=== PATIENT | male | born 1960 | race Caucasian/White ===

== ENCOUNTER 2018-02-20 09:46 | Outpatient (CLI) | payer BC, SELFPAY ==
[2018-02-20 13:06] LABS: HCT 42.5 % (40.0-50.0); Mean Corp. HGB Concentration 32.9 g/dL (32.0-36.0); Mean Platelet Volume 9.2 fL (8.0-11.0); Platelet Count 275 x1000/uL (130-400); RBC 4.67 m/cumm (4.50-6.00); RBC Distribution Width 13.4 % (11.8-14.1); White Blood Cell Count 9.34 k/cumm (4.4-10.8)
[2018-02-20 13:12] LABS: Cholesterol 139 mg/dL (50-200); HDL Cholesterol 47 mg/dL (40-60); LDL CHOLESTEROL 70 mg/dL (<100); Triglyceride 143 mg/dL (30-150)
[2018-02-20 15:27] LABS: Hemoglobin A1C 5.8 % (4.5-6.2)
== END 2018-02-20 10:06 ==
PROVIDERS: PCP Internal Medicine; Visit Provider Internal Medicine
DX: E11.9 Type 2 diabetes mellitus without complications (principal); K21.9 Gastro-esophageal reflux disease without esophagitis
CPT/HCPCS: 36415; 80061; 83721; 85027; 83036

== ENCOUNTER 2018-05-11 10:09 | Outpatient (CLI) | payer BC, SELFPAY ==
--- NOTE | 2018-05-11 10:00 | DI.RAD_ITS ---
SYMPTOMS/DIAGNOSIS: PAIN OF RT THUMB RIGHT WRIST: Comparison is made with [id number]. There are mild degenerative changes at the base of the first metacarpal. No bony erosions are seen. There are no significant intercarpal degenerative changes. IMPRESSION: Mild degenerative changes at the first carpal metacarpal joint.
== END 2018-05-11 10:29 ==
PROVIDERS: PCP Internal Medicine; Visit Provider Physician Assistant
DX: M79.644 Pain in right finger(s) (principal); M18.11 Unilateral primary osteoarthritis of first carpometacarpal joint, right hand
CPT/HCPCS: 73110

== ENCOUNTER 2018-05-15 06:59 | Day surgery (SDC) | payer BC, SELFPAY ==
[2018-05-15 07:04] VITALS: BP 146/80; PULSE 59; RESP 16; TEMP 36.3; O2SAT 95
[2018-05-15] MEDS: Lidocaine 2% Multi-Dose 50 ML VIAL (07:48)
--- NOTE | 2018-05-15 08:11 | PDOC.DSDIS_ITS ---
Discharge Plan Disposition Patient Disposition: HOME Condition: Good Discharge Details Reason For Visit: R trigger thumb Attending Provider: Sylvain Clancy Primary Care Provider: Eufemia Horan Home Meds and New Rx's Prescriptions: New hydrocodone-acetaminophen 5-325 mg tablet 1 tab PO Q6H PRN (Reason: pain) Qty: 7 RF: 0 Continued cyanocobalamin (vitamin B-12) 1,000 mcg capsule 1,000 mcg PO DAILY RF: 0 aspirin [Aspir-81] 81 MG tablet,delayed release (DR/EC) 81 mg PO DAILY RF: 0 glipizide 2.5 MG tablet extended release 24hr 2 tab PO DAILY Qty: 180 RF: 4 ranitidine HCl 300 MG tablet 300 mg PO BID Qty: 60 RF: 12 esomeprazole magnesium 40 mg capsule,delayed release(DR/EC) 40 mg PO BID Qty: 60 RF: 3 simvastatin 40 mg tablet 40 mg PO HS Qty: 90 RF: 3 sucralfate 1 gram tablet 1 g PO QID Qty: 56 RF: 3 acetaminophen [Tylenol] 325 MG tablet 650 mg PO PRN PRNRF: 0 gemfibrozil 600 MG tablet 600 mg PO DAILY RF: 0 Discharge Instructions Additional Instructions: Bend and straighten R thumb 10 times/hour when awake to decrease stiffness and swelling. Keep dressings dry for 48 hours. Remove dressings in 48 hours. May then shower or bathe and get incision wet. Leave incision uncovered when it is dry and sealed. Take hydrocodone only for pain not relieved by tylenol or ibuprofen. Follow up in 's office in 10-14 days. Referrals: Sylvain Clancy MD [ [facility] STAFF PHYSICIAN] - (f/u in 10-14 days) Activity:: Activity as Tolerated Remove Dressings/Wound Care:: 48 hours Shower/Bathe:: 48 hours Diet:: As Tolerated Discharge Orders Discharge Orders: Discharge Order (Routine); Ordered 05/15/18 Ordered By: Sylvain Clancy DS: Diagnosis Discharge Diagnosis (1) Trigger thumb, right thumb: Status: Acute
--- NOTE | 2018-05-15 15:17 | ROE_ITS ---
DATE OF PROCEDURE: May 15, 2018 PREOPERATIVE DIAGNOSIS: Right trigger thumb (flexor tenosynovitis right thumb) POSTOPERATIVE DIAGNOSIS: Same. PROCEDURE: Tendon sheath incision for right trigger thumb. ANESTHESIA: Local infiltration 1% Xylocaine solution and 0.5% Marcaine with epinephrine solution. SURGEON: Sylvain Clancy M.D. 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 He said several weeks ago hill kathleen began experiencing some intermittent triggering of his right thumb. His thumb got more painful so that about two weeks ago he noticed that he couldn't bend his thumb anymore. He now finds difficulty in performing his work duties due to the localized discomfort on the flexor aspect of his right thum b. He is a right hand dominant individual. Clinical examination shows that he has very limited flex ion of the IP joint due to flexor tenosynovitis of his thumb. His primary area of discomfort is over the proximal bryon of the tendon sheath of the right thumb. I recommended incision of the A-1 pull ey, or proximal bryon, to free up the tendon and allow him to have good active motion of the thumb a gain. The risks and complications of the procedure were explained to the patient in detail preoperat ively. PROCEDURE: The patient was taken to the Operating Room on 05/15/18. He was placed supine on the oper ating table. The right hand was prepped and draped free in the usual sterile fashion. I infiltrated 1% Xylocaine solution over the proximal flexion crease of the thumb, centered over the flexor tendon of the thumb. I then made an incision in line with the proximal flexion crease of the thumb approxi mately 2.5 cm in length. The incision was carried down to the subcu. Blunt-tipped Littler scissors were then used to mobilize the soft tissues, including the digital nerve, away from the flexor sheath of the thumb. Retractors were inserted and then under direct vision I incised the proximal bryon. I completed the incision to the entire length of the proximal bryon. The tendon sheath was really quite thickened. The patient was then asked to actively flex and extend his right thumb. He was now able to flex and extend his right thumb fully without any locking or triggering. The wound margins were infiltrated with 0.5% Marcaine with an epinephrine solution. Hemostasis was obtained with some direct pressure and then the skin edges were approximated with three interrupted #4-0 Nylon sutures. The wound was dressed with Xeroform gauze, sterile gauze 4x4's, and then wrapped with a Rafat bandag e. The patient tolerated the procedure well and was discharged to the Day Surgery Unit in good condi tion. The patient was discharged home with instructions to actively flex and extend his right thumb ten kiarra es an hour while he is awake to prevent swelling and pain. He will keep his dressings dry for 48 bebo rs. After 48 hours he may remove his dressings, shower or bathe and get his incision wet. He can le ave the incision uncovered with its dry and sealed. He'll take Tylenol or ibuprofen for pain. He wa s given a prescription for breakthrough pain of seven tablets of Hydrocodone with APAP 5/325 one ever y six hours as needed. He will follow-up in my office in 10 to 14 days.
== END 2018-05-15 08:35 | disposition home or self-care (01) ==
PROVIDERS: PCP Internal Medicine; Visit Provider Orthopaedic Surgery
PROC: (CPT 26055; principal; 2018-05-15 07:30)
DX: M65.311 Trigger thumb, right thumb (principal)
CPT/HCPCS: 26055

== ENCOUNTER 2018-05-25 12:58 | Outpatient (REF) | payer BC, SELFPAY | END 2018-05-25 13:18 | LOC: LBN 12:58 | PROVIDERS: PCP Internal Medicine; Visit Provider Orthopaedic Surgery | DX: T81.49XA Infection following a procedure, other surgical site, initial encounter (principal); M65.311 Trigger thumb, right thumb | CPT/HCPCS: 87077; 87070; 87186; 87205 ==

== ENCOUNTER 2018-08-16 15:12 | Outpatient (CLI) | payer BC, SELFPAY ==
[2018-08-16 15:45] LABS: Abs Immature Grans 0.02 k/cumm (0.0-0.09); Absolute Basophil Count 0.02 k/cumm (0.0-0.2); Absolute Eosinophil Count 0.01 k/cumm (0.0-0.7); Absolute Lymphocyte Count 1.12 k/cumm (1.2-3.4); Absolute Monocyte Count 0.65 k/cumm (0.11-0.7); Absolute Neutrophil Count 8.95 k/cumm (1.2-6.7); Basophils % 0.2; Eosinophils % 0.1; HCT 43.1 % (40.0-50.0); HGB 14.3 g/dL (13.5-17.5); Immature Grans % 0.2; Lymphocytes % 10.4; Mean Corp. HGB Concentration 33.2 g/dL (32.0-36.0); Mean Corpuscular Hemoglobin 29.2 pg (27.0-33.0); Mean Corpuscular Volume 88.1 fL (80-95); Mean Platelet Volume 8.6 fL (8.0-11.0); Neutrophils % 83.1; Platelet Count 251 x1000/uL (130-400); RBC 4.89 m/cumm (4.50-6.00); RBC Distribution Width 13.4 % (11.8-14.1); White Blood Cell Count 10.77 k/cumm (4.4-10.8)
[2018-08-16 16:42] LABS: ALT 37 U/L (12-78); AST 27 U/L (15-37); Albumin 3.7 g/dL (3.4-5.0); Alkaline Phosphatase 102 U/L (46-116); Anion Gap 12.4 mmol/L (3-11); BUN 9 mg/dL (7-18); Bilirubin, Total 0.8 mg/dL (0.2-1.0); CO2 24.6 mmol/L (21.0-32.0); CREATININE 0.97 mg/dL (0.70-1.30); Calcium 8.4 mg/dL (8.5-10.1); Chloride 100 mmol/L (98-107); Glucose 90 mg/dL (70-100); Potassium 3.8 mmol/L (3.5-5.1); Sodium 137 mmol/L (136-145)
== END 2018-08-16 15:32 ==
PROVIDERS: PCP Internal Medicine; Visit Provider Internal Medicine
DX: R05 Cough (principal); J02.9 Acute pharyngitis, unspecified
CPT/HCPCS: 36415; 80053; 85025; 87070

== ENCOUNTER 2018-08-16 16:06 | Outpatient (CLI) | payer BC, SELFPAY ==
--- NOTE | 2018-08-16 15:11 | DI.RAD_ITS ---
SYMPTOMS/DIAGNOSIS: COUGH, R05 PA AND LATERAL CHEST: A small region of infiltration is noted in the left lower lobe. The remainder of the lung is clear. The heart is not enlarged. The hilar structures, mediastinum and tracheal air column are intact. SUMMARY: Findings consistent with an acute pneumonitis.
== END 2018-08-16 16:26 ==
PROVIDERS: PCP Internal Medicine; Visit Provider Internal Medicine
DX: R05 Cough (principal); J18.9 Pneumonia, unspecified organism
CPT/HCPCS: 71046

== ENCOUNTER 2018-08-22 08:41 | Outpatient (CLI) | payer BC, SELFPAY ==
--- NOTE | 2018-08-21 16:11 | DI.RAD_ITS ---
SYMPTOM/DIAGNOSIS: J18.9, PNEUMONIA NOT RESOLVING PA AND LATERAL CHEST: Comparison is made with 08/16/18. The heart size is normal. A patchy density is again noted at the left lung base, without definite change. No new abnormalities are seen. There is no evidence of effusions. IMPRESSION: No significant change in left lower lobe infiltrate.
== END 2018-08-22 09:01 ==
PROVIDERS: PCP Internal Medicine; Visit Provider Internal Medicine
DX: J18.9 Pneumonia, unspecified organism (principal)
CPT/HCPCS: 71046

== ENCOUNTER 2019-04-03 09:36 | Outpatient (CLI) | payer BC, SELFPAY ==
--- NOTE | 2019-04-03 09:52 | DI.RAD_ITS ---
EXAM: XR HEEL RT OS CALCIS INDICATION: pain. COMPARISON: No exams were available for comparison TECHNIQUE: 2D digital imaging was performed. FINDINGS: There is no acute fracture or dislocation. No suspicious lytic or sclerotic lesions are seen. There is a moderate-sized spur at the plantar surface of the calcaneus. There is an enthesophyte at the A chilles insertion site. Vascular calcifications are present. Mild degenerative changes are seen in the hindfoot. IMPRESSION: Degenerative changes seen in the hindfoot.
== END 2019-04-03 09:56 ==
PROVIDERS: PCP Nurse Practitioner Family; Visit Provider Orthopaedic Surgery
DX: M79.671 Pain in right foot (principal); M77.31 Calcaneal spur, right foot; M19.072 Primary osteoarthritis, left ankle and foot
CPT/HCPCS: 73650

== ENCOUNTER 2019-06-15 10:45 | Outpatient (CLI) | payer BC, SELFPAY ==
[2019-06-15 12:58] LABS: HCT 43.3 % (40.0-50.0); HGB 14.5 g/dL (13.5-17.5); Mean Corp. HGB Concentration 33.5 g/dL (32.0-36.0); Mean Corpuscular Hemoglobin 29.9 pg (27.0-33.0); Mean Corpuscular Volume 89.3 fL (80-95); Mean Platelet Volume 8.9 fL (8.0-11.0); Platelet Count 331 x1000/uL (130-400); RBC 4.85 m/cumm (4.50-6.00); RBC Distribution Width 13.5 % (11.8-14.1); White Blood Cell Count 7.08 k/cumm (4.4-10.8)
[2019-06-15 13:17] LABS: ALT 30 U/L (16-63); AST 17 U/L (15-37); Albumin 3.9 g/dL (3.4-5.0); Alkaline Phosphatase 101 U/L (46-116); Anion Gap 7.8 mmol/L (3-11); BUN 14 mg/dL (7-18); Bilirubin, Total 0.8 mg/dL (0.2-1.0); CO2 29.2 mmol/L (21.0-32.0); CREATININE 0.79 mg/dL (0.70-1.30); Calcium 8.5 mg/dL (8.5-10.1); Calculated LDL 192 mg/dL (<100); Chloride 106 mmol/L (98-107); Cholesterol 273 mg/dL (<200); Glucose 107 mg/dL (74-106); HDL Cholesterol 49 mg/dL (40-60); Potassium 4.1 mmol/L (3.5-5.1); Sodium 143 mmol/L (136-145); Total Protein 6.8 g/dL (6.4-8.2); Triglyceride 164 mg/dL (<150)
[2019-06-15 14:45] LABS: Hemoglobin A1C 6.4 % (3.8-5.6)
== END 2019-06-15 11:05 ==
PROVIDERS: PCP Nurse Practitioner Family; Visit Provider Nurse Practitioner Family
DX: E11.9 Type 2 diabetes mellitus without complications (principal); E78.5 Hyperlipidemia, unspecified
CPT/HCPCS: 36415; 80053; 80061; 85027; 83036

== ENCOUNTER 2019-06-22 02:39 | Outpatient (CLI) | payer BC, SELFPAY ==
--- NOTE | 2019-06-22 06:07 | DI.MRI_ITS ---
EXAM: MR LOWER JOINT RT WO CLINICAL HISTORY: r heel pain ? STRESS FX,achilles tendinitis, m76.60. TECHNIQUE: Multiplanar multisequence MRI was performed. COMPARISON: XR HEEL RT OS CALCIS from 04/03/2019 FINDINGS: A plantar calcaneal spur is seen. There is mild edema at the heel spur. There is no evidence of a s tress fracture. The Achilles tendon appears intact. There is mild thickening of tibialis posterior tendon with some intermediate signal, consistent with tendinosis. Remaining tendons are unremarkable . There is some fluid around the tendon sheath of the flexor digitorum and flexor hallucis tendons w hich is within normal limits. There are degenerative changes seen at the tibial talar and talar cune iform joints. IMPRESSION: Mild tendinosis of the tibialis posterior tendon. Degenerative changes and heel spur. No evidence o f Achilles tendonitis or stress fracture. DATA REPOSITORY:
== END 2019-06-22 02:59 ==
PROVIDERS: PCP Nurse Practitioner Family; Visit Provider Orthopaedic Surgery
DX: M76.821 Posterior tibial tendinitis, right leg (principal); M19.071 Primary osteoarthritis, right ankle and foot; M77.31 Calcaneal spur, right foot; M79.671 Pain in right foot
CPT/HCPCS: 73721

== ENCOUNTER 2019-07-27 02:21 | Outpatient (CLI) | payer BC, SELFPAY ==
[2019-07-27 12:23] LABS: ALT 51 U/L (16-63); AST 26 U/L (15-37); Albumin 3.9 g/dL (3.4-5.0); Alkaline Phosphatase 97 U/L (46-116); Anion Gap 9.2 mmol/L (3-11); BUN 14 mg/dL (7-18); CO2 28.8 mmol/L (21.0-32.0); CREATININE 0.93 mg/dL (0.70-1.30); Calcium 8.7 mg/dL (8.5-10.1); Calculated LDL 96 mg/dL (<100); Chloride 103 mmol/L (98-107); Cholesterol 199 mg/dL (<200); Glucose 115 mg/dL (74-106); HDL Cholesterol 57 mg/dL (40-60); Potassium 3.9 mmol/L (3.5-5.1); Sodium 141 mmol/L (136-145); Total Protein 6.9 g/dL (6.4-8.2); Triglyceride 231 mg/dL (<150)
== END 2019-07-27 02:41 ==
PROVIDERS: PCP Nurse Practitioner Family; Visit Provider Nurse Practitioner Family
DX: I10 Essential (primary) hypertension (principal); E78.5 Hyperlipidemia, unspecified
CPT/HCPCS: 36415; 80053; 80061

== ENCOUNTER 2019-11-12 00:48 | Outpatient (CLI) | payer BC, SELFPAY ==
--- NOTE | 2019-11-12 08:15 | DI.RAD_ITS ---
EXAM: XR KNEE LT 3V AP,LAT,PATRICIO CLINICAL HISTORY: LEFT KNEE PAIN M25.562 PAIN LT KNEE. TECHNIQUE: 2D digital imaging was performed. COMPARISON: CR XR CHEST 2V PA LATERAL from 08/21/2018 FINDINGS: Small osteophytes is seen at the posterior patella. The joint spaces are otherwise well maintained. Bones are normally mineralized and intact. Vascular calcifications are seen in the soft tissues. T he soft tissues are otherwise unremarkable. IMPRESSION: Mild degenerative changes of the left knee. DATA REPOSITORY: RADIATION DOSE DELIVERED:
--- NOTE | 2019-11-12 08:15 | DI.RAD_ITS ---
EXAM: XR HIP LT COMPLETE AP PELVIS CLINICAL HISTORY: LEFT HIP PAIN M25.552 PAIN LT HIP. TECHNIQUE: 2D digital imaging was performed. COMPARISON: No exams were available for comparison FINDINGS: There is mild narrowing of the left hip joint space. The joint is otherwise well maintained. There is a well corticated osseous density adjacent to the superior acetabulum. Bones are normally mineral ized and intact. The sacroiliac joints and symphysis pubis appear unremarkable. The soft tissues ar e unremarkable. IMPRESSION: Mild degenerative changes of the left hip. DATA REPOSITORY: RADIATION DOSE DELIVERED:
== END 2019-11-12 01:08 ==
PROVIDERS: PCP Nurse Practitioner Family; Visit Provider Nurse Practitioner Family
DX: M25.552 Pain in left hip (principal); M16.12 Unilateral primary osteoarthritis, left hip; M25.562 Pain in left knee; M17.12 Unilateral primary osteoarthritis, left knee
CPT/HCPCS: 73562; 73502

== ENCOUNTER 2020-04-18 03:04 | Outpatient (CLI) | payer BC, SELFPAY ==
[2020-04-21 17:19] LABS: COVID-19 RT-PCR Result NEGATIVE (Negative)
== END 2020-04-18 03:24 ==
PROVIDERS: PCP Nurse Practitioner Family; Visit Provider Nurse Practitioner Family
DX: R06.02 Shortness of breath (principal)
CPT/HCPCS: U0003

== ENCOUNTER 2020-06-16 01:06 | Outpatient (CLI) | payer BC, SELFPAY ==
--- NOTE | 2020-06-16 07:30 | DI.RAD_ITS ---
EXAM: XR FOOT RT COMPLETE CLINICAL HISTORY: Pain right 5th toe,M79.674. TECHNIQUE: 2D digital imaging was performed. COMPARISON: No exams were available for comparison FINDINGS: There is a fracture of the midshaft of the proximal phalanx of the 5th toe. This is probably subacut e as there does appear to be some callus formation. Mild displacement. No other fractures and no di astasis of the Lisfranc joint. Mild hallux valgus noted. There is no significant narrowing of the g reat toe metatarsophalangeal joint. Prominent inferior calcaneal spur is noted as is calcification a t the insertional aspect of the Achilles tendon. Calcification is noted in the dorsalis pedis artery . There is no radiographic evidence of osteomyelitis. IMPRESSION: Fracture site at the midshaft of the proximal phalanx of the 5th toe as described above. DATA REPOSITORY: RADIATION DOSE DELIVERED:
== END 2020-06-16 01:07 ==
LOC: DI 01:06
PROVIDERS: PCP Nurse Practitioner Family; Visit Provider Nurse Practitioner Family
DX: S92.511A Displaced fracture of proximal phalanx of right lesser toe(s), initial encounter for closed fracture (principal)
CPT/HCPCS: 73630

== ENCOUNTER 2020-06-19 21:19 | Outpatient (REF) | payer BC, SELFPAY ==
[2020-06-19 21:34] LABS: Hemoglobin A1C 7.3 % (<5.7)
[2020-06-19 21:37] LABS: Anion Gap 9.1 mmol/L (3-11); BUN 12 mg/dL (7-18); CO2 29.9 mmol/L (21.0-32.0); CREATININE 1.2 mg/dL (0.70-1.30); Calcium 9.4 mg/dL (8.5-10.1); Calculated LDL 78 mg/dL (<100); Chloride 102 mmol/L (98-107); Cholesterol 179 mg/dL (<200); Glucose 131 mg/dL (74-106); HDL Cholesterol 54 mg/dL (40-60); Potassium 3.4 mmol/L (3.5-5.1); Sodium 141 mmol/L (136-145); Triglyceride 238 mg/dL (<150)
== END 2020-06-19 21:20 | disposition home or self-care (01) ==
LOC: LBN 21:19
PROVIDERS: PCP Nurse Practitioner Family; Visit Provider Nurse Practitioner Family
DX: E11.9 Type 2 diabetes mellitus without complications (principal)
CPT/HCPCS: 80048; 80061; 83036

== ENCOUNTER 2020-08-25 09:37 | Outpatient (CLI) | payer BC, SELFPAY ==
[2020-08-26 12:48] LABS: COVID-19 RT-PCR UVMMC Result Negative (Negative)
== END 2020-08-25 09:38 | disposition home or self-care (01) ==
PROVIDERS: PCP Nurse Practitioner Family; Visit Provider Nurse Practitioner Family
DX: Z20.822 Contact with and (suspected) exposure to COVID-19 (principal)
CPT/HCPCS: U0003

== ENCOUNTER → 2020-09-24 02:40 | Outpatient (CLI) | payer BC, SELFPAY ==
--- NOTE | 2020-09-24 08:00 | DI.RAD_ITS ---
Exam(s) XR CERVICAL SPINE COMP 4-5V EXAM: XR CERVICAL SPINE COMP 4-5V CLINICAL HISTORY: Neck pain with limited ROM, osteo?,CERVICALGIA,M54.2. TECHNIQUE: 2D digital imaging was performed. COMPARISON: No exams were available for comparison FINDINGS: There is no evidence of fracture or listhesis. There is moderate-advanced disc space narrowing at C3 -4 and C5-6 levels. Other levels exhibit normal height. There are bilateral Luschka joint osteophyt es at C3-4 level. No significant Luschka joint osteophytes at C5-6. C6-7 exhibits normal height. T here are mild degenerative changes in the facet joints. No osseous lesions There is asymmetry in the appearance of 1st ribs. Right 1st rib is short IMPRESSION: Degenerative disc disease as described above. Also Luschka joint osteophytes bilaterally at C3-4 lev el. Only mild degenerative facet joint changes. No listhesis. No osseous lesions. DATA REPOSITORY: RADIATION DOSE DELIVERED:
== END ==
PROVIDERS: PCP Nurse Practitioner Family; Visit Provider Nurse Practitioner Family
DX: M54.2 Cervicalgia (principal); M50.31 Other cervical disc degeneration, high cervical region; M50.322 Other cervical disc degeneration at C5-C6 level; M47.812 Spondylosis without myelopathy or radiculopathy, cervical region
CPT/HCPCS: 72050

== ENCOUNTER 2020-11-28 08:32 | Outpatient (CLI) | payer BC, SELFPAY ==
--- NOTE | 2020-11-28 08:15 | DI.RAD_ITS ---
Exam(s) XR HIP LT COMPLETE AP PELVIS EXAM: XR HIP LT COMPLETE AP PELVIS CLINICAL HISTORY: L leg pain. TECHNIQUE: 2D digital imaging was performed. COMPARISON: CR XR HIP LT COMPLETE AP PELVIS from 11/12/2019 FINDINGS: BONES: No acute fracture is present. No bony destructive lesion is seen. JOINTS: No dislocation present. There are mild degenerative changes of the left hip. SOFT TISSUE: Normal. IMPRESSION: Mild degenerative changes of the left hip. DATA REPOSITORY: RADIATION DOSE DELIVERED:
== END 2020-11-28 08:33 | disposition home or self-care (01) ==
LOC: DIORS 08:32
PROVIDERS: PCP Nurse Practitioner Family; Visit Provider Physician Assistant
DX: M16.12 Unilateral primary osteoarthritis, left hip (principal)
CPT/HCPCS: 73502

== ENCOUNTER → 2021-03-05 02:16 | Outpatient (CLI) | payer BC, SELFPAY ==
--- NOTE | 2021-03-05 06:30 | DI.MRI_ITS ---
Exam(s) MR LOWER JOINT LT WO EXAM: MR LOWER JOINT LT WO CLINICAL HISTORY: left knee pain,M17.12, PRIMARY OA TECHNIQUE: Multiplanar multisequence MRI of the knee was performed. COMPARISON: MR MRI L LOWER JOINT WO CONT from 06/27/2009 CR XR KNEE LT 3V AP,LAT,PATRICIO from 11/12/2019 FINDINGS: EFFUSION: There is a minimal amount of increased joint fluid. There is no large joint effusion. The re is no Rivas cyst in the popliteal fossa. MARROW:There is no evidence of fracture, bone contusion, nor osteochondral defects.. There are no si gnificant osseous lesions. PATELLOFEMORAL COMPARTMENT: The quadriceps tendon is intact. The patellar ligament is intact. There is moderate-marked thinning of the retropatellar cartilage over the medial facet. Only mild th inning over the lateral facet. No osteochondral defects.There is no intraosseous signal to suggest r ecent patellar dislocation. There are no patellar retinacular tears. CRUCIATE LIGAMENTS: The anterior cruciate ligament is intact.The posterior cruciate ligament is intac t. MEDIAL COMPARTMENT/MEDIAL MENISCUS: There is tear of the posterior horn of the medial meniscus. Mild bucket-handle configuration. 8 millimeter distance between the edges. Also abundant intrasubstance degenerative myxoid degenerative changes in the outer third of the posterior horn. There is [place] d cartilage thinning over the main weight-bearing surface directly over the torn meniscal area. No t rue osteochondral defect. No subarticular marrow edema at this level. Posteriorly there is a promin ent septated cystic structure in the midline which exhibits a craniocaudal length of 4.5 cm, up to 2 cm wide, and is seen on both sides of the knee posteriorly. This intra-articular ganglion-type cyst also extends posterior to the lower PCL (which is intact). This may be a degenerative meniscal cysts related to the above described tear. The anterior horn of the medial meniscus appears intact. There are no osteophytes in the medial compartment but there is a degenerative subarticular cyst in t he tibial plateau just below the PCL tibial insertion, this measuring 5 x 5 millimeters MEDIAL COLLATERAL LIGAMENT: Intact LATERAL COMPARTMENT/LATERAL MENISCUS: . There is intrasubstance signal-probable myxoid degeneration signal at the level of the root of the posterior horn. This does not violate the articular surface. The inner aspect of the anterior horn of the lateral meniscus exhibits some tearing.There is mild castro barticular edema in the inner aspect of the lateral femoral condyle this level. Some cartilage thinn ing over this focal area is also noted. No cartilage thinning over the lateral femoral condyle behin d this level. No subarticular edema within the lateral tibial plateau nor evidence of degenerative c yst at this level. ILIOTIBIAL BAND: Intact LATERAL COLLATERAL LIGAMENT COMPLEX: The fibular collateral ligament is intact. The biceps femoris t endon is intact.Popliteus muscle and tendon are intact. IMPRESSION: 1. There are tears as described above in both menisci, involving the posterior horn of the medial men iscus and anterior horn of the lateral meniscus. Myxoid degeneration signal is noted in the posterio r horn of the lateral meniscus at the root level but signal abnormality this level does not violate t he articular surface. 2. Mild cartilage changes in the femoral condyles as described above. No osteochondral defects. No osteophytes. 3. Large intra-articular multi-septated posteriorly located cyst seen both laterally and medially, in cluding posterior to the PCL and extending caudally behind the joint. This is most probably a degene rative meniscal cyst, possibly having a thin neck from the prominent tear in the posterior horn of th e medial meniscus and extending behind the PCL to the opposite-lateral aspect of the knee and extendi ng caudally. 4. There are no cruciate ligament tears nor collateral ligament tears. There is significant thinning of the retropatellar cartilage over the medial facet. Minimal adjacent intraosseous signal in the posterior patella. No osteochondral defect at this level. DATA REPOSITORY:
== END ==
PROVIDERS: PCP Nurse Practitioner Family; Visit Provider Student in an Organized Health Care Education/Training Program
DX: M17.12 Unilateral primary osteoarthritis, left knee (principal); S83.282A Other tear of lateral meniscus, current injury, left knee, initial encounter; S83.242A Other tear of medial meniscus, current injury, left knee, initial encounter; X58.XXXA Exposure to other specified factors, initial encounter; M23.007 Cystic meniscus, unspecified meniscus, left knee
CPT/HCPCS: 73721

== ENCOUNTER 2021-03-31 02:35 | Outpatient (CLI) | payer BC, SELFPAY ==
[2021-03-31 11:05] LABS: Source Nasal/Nares
[2021-03-31 15:08] LABS: COVID-19 PCR Negative (Negative)
== END 2021-03-31 02:36 | disposition home or self-care (01) ==
LOC: LBO 02:36
PROVIDERS: PCP Nurse Practitioner Family; Visit Provider Student in an Organized Health Care Education/Training Program
DX: Z20.822 Contact with and (suspected) exposure to COVID-19 (principal)
CPT/HCPCS: 87635

== ENCOUNTER 2021-04-02 09:37 | Day surgery (SDC) | payer BC, SELFPAY ==
[2021-04-02] VITALS (12 sets, daily range): BP systolic 93–141; BP diastolic 64–94; PULSE 43–70; RESP 7–20; TEMP 36.4–36.9; O2SAT 89–98; BMI 32.2
--- NOTE | 2021-04-02 10:04 | W.ANESPRE ---
General Info Date of Service Date Performed: 04/02/21 Height: 5 ft 5 in Weight: 87.8 kg Body Mass Index (BMI): 32.2 Surgical Procedure: Operation Date: 04/02/21 10:40 Proposed Procedures Side Surgeon p Knee Arthroscopy W/ANY INDICATED MENISCAL, CHONDRAL, AND SYNOVIAL SURGERY Left Felipe Corey MD Meds Allergies and Home Medications Allergies Allergy/AdvReac Type Severity Reaction Status Date / Time No Known Drug Allergies Allergy Verified 04/02/21 09:46 Home Medication Medication Instructions Recorded aspirin [Aspir-81] 81 mg PO DAILY tab-cap 07/04/12 sucralfate 1 gram tablet 1 g PO QID #360 tab 05/09/20 metformin 500 mg tablet 500 mg PO DAILY #90 tab 06/23/20 albuterol sulfate 90 mcg/actuation 1 puff IH QID PRN #18 gm 06/30/20 aerosol inhaler fluticasone propionate 110 1 puff IH BID #12 gm 06/30/20 mcg/actuation HFA aerosol inhaler blood sugar diagnostic #200 ea 07/24/20 blood-glucose meter #1 ea 07/24/20 glipizide 5 mg tablet, extended 5 mg PO DAILY #90 tab 07/24/20 release 24 hr omeprazole 40 mg capsule,delayed 40 mg PO BID #180 cap 07/24/20 release simvastatin 40 mg tablet 40 mg PO HS #90 tab 07/24/20 lancets 30 gauge #200 ea 09/22/20 chlorthalidone 25 mg tablet 25 mg PO DAILY #90 tab 12/05/20 mecobalamin (vitamin B12) 1,000 1,000 mcg SUBLINGUAL DAILY 03/11/21 mcg disintegrating tablet,sublingual Current Visit Medications: Current Medications Generic Name Dose Route Start Last Admin Trade Name Freq PRN Reason Stop Dose Admin Ringer's Solution 1,000 mls @ 100 mls/hr 04/02/21 06:00 IV 05/01/21 23:59 INFUSION KAREN Cefazolin Sodium/Dextrose 2 gm in 50 mls @ 100 mls/hr 04/02/21 06:00 Ancef Duplex IVPB 04/02/21 16:00 PREOP KAREN IV Miscellaneous Supplies 1 each 04/02/21 06:00 Iv Access IV 05/01/21 23:59 DIRECTED KAREN Naproxen 250 - 500 mg 04/02/21 07:27 Naproxen 500 Mg Tab PO BID PRN PRN Oxycodone HCl 5 - 10 mg 04/02/21 07:27 Oxycodone 5 Mg Tab PO Q4H PRN PRN Sodium Chloride 0 ml 04/02/21 06:00 Normal Saline Flush 10 Ml Syr IV 05/01/21 23:59 PRN PRN Sodium Chloride 0 ml 04/02/21 06:00 Normal Saline 10 Ml Vial IJ 05/01/21 23:59 DIRECTED PRN Sterile Water 0 ml 04/02/21 06:00 Water,Injection,Sterile 10 Ml Vial IJ 05/01/21 23:59 DIRECTED PRN PFSH Active Problems Active Problems: Problem Status Onset Code Tear of medial meniscus of left knee, current S83.242A 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 Primary osteoarthritis of left knee M17.12 Type 2 diabetes mellitus E11.9 Essential hypertension I10 Hyperlipidemia Gastroesophageal reflux disease with esophagitis K21.0 Dysphagia R13.10 Mild persistent asthma J45.30 Closed fracture of phalanx of right fifth toe S92.501A Obesity E66.9 Medical History Medical History Diplopia Dysphagia Essential hypertension Gastroesophageal reflux disease with esophagitis Hyperlipidemia Mild persistent asthma Obesity Sigmoid diverticulosis Type 2 diabetes mellitus Surgical History Surgical History History of carpal tunnel surgery of right wrist History of esophagogastroduodenoscopy (EGD) (12/29/16) And in 2016 S/P appendectomy S/P colonoscopy (09/01/12) S/P left knee arthroscopy (09/02/09) With chondroplasty patella and open lateral retinacular release S/P trigger finger release (07/04/17) Of Right middle finger; also had right ring finger done in 2009 Tobacco Smoking/Tobacco Use Status: Former Tobacco Use Tobacco: How many years used: 35 Smokeless tobacco user: other Passive smoking exposure: Yes Quit Status: quit date established Second hand exposure: Yes Alcohol Alcohol Intake: current Alcohol intake frequency: holidays/special occasions only Alcohol type: beer Substance Use Substance use: Never Substance use type: does not use Vital Signs and Lab Results Vital Signs Most Recent Vital Signs in EMR: Most Recent Vital Signs Temp Pulse Resp BP Pulse Ox 36.9 C 70 16 123/81 97 04/02/21 09:49 04/02/21 09:49 04/02/21 09:49 04/02/21 09:49 04/02/21 09:49 Lab Results Blood Type / Crossmatch: No Data to Display Complete Blood Count: No Data to Display Complete Metabolic Panel: No Data to Display Liver Function Panel: No Data to Display Coagulation Panel: No Data to Display Cardiac Panel: No Data to Display Arterial Blood Gas: No Data to Display Venous Blood Gas: No Data to Display Pancreas Panel: No Data to Display Thyroid Panel: No Data to Display Infectious Disease: Coronavirus (COVID-19)(PCR) Negative (Negative) 03/31/21 10:48 03/31/21 Coronavirus 2019 Source Nasal/Nares 03/31/21 10:48 03/31/21 Blood Cultures: No Data to Display Toxicology Panel: No Data to Display Anesthesia Assessment and Plan Anesthesia History Personal History: No History of Anesthesia Complications Family History: No Family History of Anesthesia Complications Exercise Tolerance Exercise Tolerance: Metabolic Equivalents>4 Pertinent Negatives Pertinent Negatives: No Major Cardiovascular Symptoms or Complaints, No Major Pulmonary Symptoms or Complaints, No History of CVA/TIA and Other (No active GERD today but does happen even with meds. Will give Pepcid preop. ) Cardiac & Pulmonary Exam Cardiac Exam: Normal S1/S2 Heart Sounds Pulmonary Exam: Clear Bilateral Breath Sounds Implantable Cardiac Device Does patient have a Pacemaker or an ICD?: No Airway Exam Known Difficult Airway: No Mallampati Class: 2 Mouth Opening: Normal (> 3cm) Thyromental Distance: Greater than 3 cm Neck Range of Motion: Full ROM Neck Circumference: Normal Teeth Condition: Generalized Poor Dentition (Many missing teeth, none loose per patient. ) ASA Classification ASA Score: ASA 2 Emergency Case?: No NPO Status NPO Status: NPO Clears >2 hours, Solids >8 hours Anesthesia Plan Resuscitation Status: Full Code Anesthesia Technique: General Anesthesia Airway Planned: Endotracheal Tube Monitors Used: Standard Monitors
[2021-04-02] MEDS: Lactated Ringers 1,000 ML 100 ML IV (10:16)
[2021-04-02] MEDS: ceFAZolin 2 GM/50 ML BAG IVPB (10:32)
--- NOTE | 2021-04-02 10:57 | W.ANESPOSTOP ---
Postoperative Evaluation Date, Time and Location Date Performed: 04/02/21 Time Performed: 10:57 Patient Location: Day Surgery Unit Vital Signs Most Recent Imported Vital Signs: Most Recent Vital Signs Temp Pulse Resp BP Pulse Ox 36.9 C 70 16 123/81 97 04/02/21 09:49 04/02/21 09:49 04/02/21 09:49 04/02/21 09:49 04/02/21 09:49 Pain Score Most Recent Pain Score: Most Recent Pain Score Pain Level 0 04/02/21 10:56 Assessment Mental Status: Awake (Alert & Oriented to Patient Baseline) Airway and Respiratory Function: Patent airway with normal (patient baseline) respiratory exam Cardiovascular Function: Hemodynamically Stable Hydration Status: Adequately Hydrated Nausea & Vomiting: No Nausea or Vomiting Pain: Pt. Denies Any Pain Peripheral Nerve Block: Regional nerve block not resolved at time of post operative discharge
[2021-04-02] MEDS: EPINEPHrine 30 MG/30 ML VIAL (12:03)
[2021-04-02] MEDS: MORPHine 4 MG/ML SYR (12:03)
--- NOTE | 2021-04-02 12:08 | W.PM.DSUDISC ---
Discharge Plan Disposition Patient Disposition: HOME Condition: Stable Discharge Details Reason For Visit: Left knee surgery Attending Provider: Felipe Corey Primary Care Provider: Zuleika Vergara Meds and New Rx's Prescriptions: New naproxen 250 mg tablet 250 - 500 mg PO BID PRN (Reason: Moderate pain or swelling) Qty: 30 RF: 0 oxycodone 5 mg tablet 5 - 10 mg PO Q4H PRN (Reason: moderate to severe pain) Qty: 18 RF: 0 Continued (DME) lancets [BD Microtainer Lancet] 30 gauge misc See Rx Instructions .ROUTE .MEDSUPPLY Qty: 200 RF: 4 mecobalamin (vitamin B12) 1,000 mcg tablet,disintegrating 1,000 mcg sublingual DAILY RF: 0 glipizide 5 mg tablet extended release 24hr 5 mg PO DAILY Qty: 90 RF: 4 simvastatin 40 mg tablet 40 mg PO HS Qty: 90 RF: 4 omeprazole 40 mg capsule,delayed release(DR/EC) 40 mg PO BID Qty: 180 RF: 4 (DME) blood-glucose meter [OneTouch Ultra2 Meter] Kit See Rx Instructions .ROUTE .MEDSUPPLY Qty: 1 RF: 2 (DME) OneTouch Ultra Blue Test Strip Strip See Rx Instructions .ROUTE .MEDSUPPLY Qty: 200 RF: 4 aspirin [Aspir-81] 81 MG tablet,delayed release (DR/EC) 81 mg PO DAILY RF: 0 sucralfate 1 gram tablet 1 g PO QID Qty: 360 RF: 4 metformin 500 mg tablet 500 mg PO DAILY Qty: 90 RF: 4 albuterol sulfate 90 mcg/actuation HFA aerosol inhaler 1 puff IH QID PRN (Reason: shortness of breath or wheezing) Qty: 18 RF: 4 Flovent HFA 110 mcg/actuation HFA aerosol inhaler 1 puff IH BID Qty: 12 RF: 4 chlorthalidone 25 mg tablet 25 mg PO DAILY Qty: 90 RF: 4 Discharge Instructions Additional Instructions: Surgery: Left knee arthroscopy with partial medial and lateral meniscectomy, synovectomy, and chondroplasty Activity: Weightbearing as tolerated. Advance range of motion as comfort allows. No knee brace or crutches needed as soon as comfortable. Avoid deep knee flexion, pivoting, and squatting for approximately 6-8 weeks. A physical therapy prescription will be sent electronically to start in 2 to 3 weeks. Prescriptions: Resume home aspirin 81 mg daily tomorrow Naproxen 250 mg take 1-2 every 12 hours with a meal as needed for moderate pain Oxycodone 5 mg take 1-2 every 4-6 hours as needed for severe pain You may use [id number] Tylenol (acetaminophen) as needed for mild pain. These pain medications may be taken all at once or in different combinations as needed. Also, recommend Colace (docusate) as a stool softener as surgery and pain medicine cause constipation. Dressings: Leave dressing in place for 3 days. May then remove and leave open to air or cover incisions with Band-Aids. May shower after 5 days. Follow-up: 10-[address] Corey Let us know right away if you develop any redness, drainage, fevers, chest pain, or trouble breathing. Do not drink alcohol or drive for at least 24 hours after anesthesia. Please call the office during business hours with any questions or concerns. Referrals: Felipe Corey MD [ [facility] STAFF PHYSICIAN] - Discharge Orders Discharge Orders: Discharge Order (Routine); Ordered 04/02/21 Ordered By: Felipe Corey DS: Diagnosis Discharge Diagnosis (1) Tear of medial meniscus of left knee, current: Status: Acute (2) Chondromalacia, left knee: Status: Acute (3) Synovitis of left knee: Status: Acute (4) Lateral meniscal tear: Status: Acute
--- NOTE | 2021-04-02 12:17 | ROE_ITS ---
Date of service: 04/02/21 Time of Service: 11:00 Operative Note Operative Note DATE OF PROCEDURE: 04/02/21 PRE-OP DIAGNOSIS: Left knee 1. Medial meniscus tear 2. Chondromalacia POST-OP DIAGNOSIS: other Left knee 1. Medial meniscus tear 2. Chondromalacia 3. Lateral meniscus tear 4. Synovitis PROCEDURE: Left knee 1. Partial medial & lateral meniscectomy, CPT #46998 2. Greater than 2 compartment synovectomy, CPT #60966: Patellofemoral, intercondylar, anteromedial, anterolateral 3. Chondroplasty, CPT #15982: Trochlea and medial femoral condyle SURGEON: Felipe Corey DIRECTOR DATA ARCHITECTURE: None None ANESTHESIA TYPE: Local By Surgeon and General LMA/ETT Refer to Anesthesia Record ESTIMATED BLOOD LOSS: 5 PATHOLOGY: none sent TOURNIQUET TIME: 0 COMPLICATIONS: None Patient was transported to: PACU Patient's condition: stable Indications: Please see complete medical record for details. Findings: Exam under anesthesia: Full range of motion, no instability Arthroscopic findings: Extensive synovitis especially peripatellar and inferior patellar as well as the intercondylar, anteromedial, and anterolateral areas. Likely from prior arthroscopy and potential scarring from lateral release. Near full-thickness about 2 x 2 centimeter central trochlear cartilage lesion with loose rough cartilage edges. No significant kissing underside patellar lesion. Intact lateral femoral condyle. Medial femoral condyle with moderately diffuse grade 2?3 chondromalacia in the weightbearing portion. Grade 1?2 changes tibia. Intact ACL PCL. Lateral meniscus with moderate fraying about the root and into the posterior horn without any disruption of the root. Medial meniscus with significant near full thickness radial posterior horn tear with complex extension into the root about 50% involvement in a horizontal fashion and in a vertical and horizontal fashion through the posterior horn into the medial meniscal body. Root remnant stable. Procedure Description: In the operating room, genral anesthesia was induced. The patient was positioned supine on the operating room table. All bony prominences were well-padded. Preoperative antibiotics were administered. The knee was prepped and draped in the usual sterile fashion. The correct patient, procedure, and side of the procedure were all verified prior to incision. Exam under anesthesia was performed. 10 cc of 0.5% bupivacaine containing epinephrine was infiltrated about the planned anteromedial and anterolateral knee arthroscopy portals. The portals were established and a complete diagnostic arthroscopy was performed with relevant findings detailed above. The mechanical shaver was used to remove pathologic synovium from the anteromedial, anterolateral, intercondylar, and patellofemoral areas including extensive scarring about the patella and posterior fat pad and patellar tendon limiting patella mobility. The central trochlea was brought into view with the knee held in moderate flexion and unstable cartilage flaps about the rim of a cartilage lesion was gently trimmed to a stable margin removing only as little cartilage as necessary to prevent propagation and loose body. The medial femoral condyle had moderately diffuse thinning and fraying which was also smooth only as much as necessary to a stable contour. Using a combination of hand instruments including meniscal biters and a power shaver and working through the anteromedial and anterolateral compartments the medial meniscus tear was debrided of all torn tissue to a stable margin. Care was taken to preserve as much meniscus tissue was possible although there was significant extension about the radial tear with above described complex propagation towards the root and towards the body. The meniscal remnant was probed and found to have a stable margin, stable partial root, and no other tears. In the [id number] position the lateral meniscus had moderate fraying about the root and mild fraying into the posterior horn. The root was stable and although there was partial injury it was stable. The mechanical shaver was all that was necessary to debride this frayed injured lateral meniscal tissue smoothing and contouring into the posterior horn. Under direct arthroscopic visualization an 18-gauge needle was passed into the knee from superolateral into the suprapatellar pouch. The knee was copiously irrigated with arthroscopic fluid until there was a clear effluent before being drained of all fluid. The anteromedial and anterolateral portals were closed in 3-0 Monocryl in a buried interrupted fashion. 20 cc of 0.5% bupivacaine with epinephrine containing 4 mg of morphine was infiltrated into the knee through the previously placed needle. Mastisol, Steri-Strips, and 4 x 4 gauze were applied over the incisions followed by sterile soft roll. The knee was then wrapped gently with an JESSICA comressive bandage. The patient awoke from anesthesia without complication and was transferred to the recovery room in a stable condition. Arthroscopic photos will be in separate files due to issues with arthroscopy tower functioning during the case requiring use of a backup mobile tower.
[2021-04-02] MEDS: fentaNYL 100 MCG/2 ML VIAL IVP (12:22)
[2021-04-02] MEDS: ACETAMINOPHEN 1,000 MG/100 ML BTL 400 MG IVPB (12:49)
[2021-04-02] MEDS: LORazepam 2 MG/ML VIAL 0.5 MG IVP (13:11)
[2021-04-02] MEDS: oxyCODONE 5 MG TAB PO (14:08)
--- NOTE | 2021-04-02 15:38 | W.ANESPOSTOP ---
Postoperative Evaluation Date, Time and Location Date Performed: 04/02/21 Time Performed: 15:39 Patient Location: Day Surgery Unit Vital Signs Most Recent Imported Vital Signs: Most Recent Vital Signs Temp Pulse Resp BP Pulse Ox 36.5 C 50 L 14 134/77 98 04/02/21 14:29 04/02/21 14:29 04/02/21 14:29 04/02/21 14:29 04/02/21 14:29 Pain Score Most Recent Pain Score: Most Recent Pain Score Pain Level 5 04/02/21 14:29 Assessment Mental Status: Awake (Alert & Oriented to Patient Baseline) Airway and Respiratory Function: Patent airway with normal (patient baseline) respiratory exam Cardiovascular Function: Hemodynamically Stable Hydration Status: Adequately Hydrated Nausea & Vomiting: No Nausea or Vomiting Pain: Pain is tolerable per patient Peripheral Nerve Block: Patient did not receive a nerve block Postoperative Comments:: Patient seen earlier today prior to discharge at around 1430
== END 2021-04-02 15:15 | disposition home or self-care (01) ==
LOC: SUR 09:37
PROVIDERS: PCP Nurse Practitioner Family; Visit Provider Student in an Organized Health Care Education/Training Program
PROC: (CPT 29870; principal; 2021-04-02 10:30)
DX: M23.232 Derangement of other medial meniscus due to old tear or injury, left knee (principal); M94.262 Chondromalacia, left knee; M23.262 Derangement of other lateral meniscus due to old tear or injury, left knee; M65.862 Other synovitis and tenosynovitis, left lower leg
CPT/HCPCS: 29876; 29880; J0131; J0690; J1885; J2001; J2060; J2270; J2405; J2704; J3010

== ENCOUNTER → 2021-08-11 02:25 | Outpatient (CLI) | payer BC, SELFPAY ==
--- NOTE | 2021-08-11 07:00 | DI.RAD_ITS ---
Exam(s) XR THUMB RT EXAM: XR THUMB RT CLINICAL HISTORY: uneplained severe pain at IP joint, PAIN RT THUMB, NO TRAUMA, M79.644. TECHNIQUE: 2D digital imaging was performed of the right finger. Three views were obtained. PA/AP, oblique, and lateral views were obtained. COMPARISON: No exams were available for comparison FINDINGS: BONES: No acute fracture is present. No bony destructive lesion is seen. JOINTS: No dislocation present. SOFT TISSUE: Normal. IMPRESSION: No evidence of acute fracture, dislocation, or subluxation. DATA REPOSITORY: RADIATION DOSE DELIVERED:
== END ==
PROVIDERS: PCP Nurse Practitioner Family; Visit Provider Family Medicine
DX: M79.644 Pain in right finger(s) (principal)
CPT/HCPCS: 73140

== ENCOUNTER 2021-08-19 03:06 | Outpatient (CLI) | payer BC, SELFPAY ==
[2021-08-19 08:29] LABS: Abs Immature Grans 0.02 10^3/uL (0.0-0.06); Absolute Basophil Count 0.05 10^3/uL (0.0-0.2); Absolute Eosinophil Count 0.31 10^3/uL (0.0-0.7); Absolute Lymphocyte Count 2.31 10^3/uL (1.2-3.4); Absolute Monocyte Count 0.49 10^3/uL (0.1-0.8); Absolute Neutrophil Count 2.62 10^3/uL (1.2-6.7); Basophils % 0.9; Eosinophils % 5.3; HCT 44.6 % (40.0-50.0); HGB 14.9 g/dL (13.5-17.5); Immature Grans % 0.3; Lymphocytes % 39.8; MCH 29.2 pg (27.0-33.0); MCHC 33.4 % (32.0-36.0); MCV 87.3 fL (80-95); MPV 8.5 fL (8.0-11.0); Monocytes % 8.4; Neutrophils % 45.3; Platelet Count 307 10^3/uL (130-400); RBC 5.11 10^6/uL (4.36-5.78); RDW 13.4 % (11.8-14.1); RDW-SD 43.3 fL
[2021-08-19 08:35] LABS: ESR 6 mm/hr (0-20)
[2021-08-19 08:49] LABS: Hemoglobin A1C 6.7 % (<5.7)
[2021-08-19 09:15] LABS: COMMENT (LAB VIEW ONLY) 133.68 mg/dL; Microalb ug/mg Crea 6.4 ug/mg Cr
[2021-08-19 09:33] LABS: ALT 36 U/L (16-63); AST 23 U/L (15-37); Albumin 4.1 g/dL (3.4-5.0); Alkaline Phosphatase 97 U/L (46-116); Anion Gap 8.1 mmol/L (3-11); BUN 11 mg/dL (7-18); Bilirubin, Total 0.9 mg/dL (0.2-1.0); CO2 30.9 mmol/L (21.0-32.0); Chloride 102 mmol/L (98-107); Glucose 155 mg/dL (74-106); Potassium 3.4 mmol/L (3.5-5.1); Sodium 141 mmol/L (136-145); Total Protein 7.1 g/dL (6.4-8.2)
[2021-08-19 09:35] LABS: Calculated LDL 111 mg/dL (<100); Cholesterol 212 mg/dL (<200); HDL Cholesterol 62 mg/dL (40-60); Triglyceride 197 mg/dL (<150)
[2021-08-19 09:44] LABS: C-Reactive Protein 0.13 mg/dL (0.0-0.3); Uric Acid 5.1 mg/dL (3.5-7.2)
[2021-08-19 19:01] LABS: PSA, Screening 1.2 ng/mL (<=4.5)
[2021-08-20 11:03] LABS: Hepatitis C Ab w Rflx HCV PCR Negative (Negative)
[2021-08-20 11:06] LABS: HIV-1/2 Ag & Ab Screen Negative (Negative)
== END 2021-08-19 03:07 | disposition home or self-care (01) ==
LOC: LBO 03:06
PROVIDERS: Family Medicine; PCP Nurse Practitioner Family; Visit Provider Nurse Practitioner Family
DX: E11.9 Type 2 diabetes mellitus without complications (principal); I10 Essential (primary) hypertension; M19.041 Primary osteoarthritis, right hand; Z11.59 Encounter for screening for other viral diseases; Z12.5 Encounter for screening for malignant neoplasm of prostate; Z11.4 Encounter for screening for human immunodeficiency virus [HIV]
CPT/HCPCS: 36415; 80048; 80053; 80061; 84153; 85652; 86803; 87389; 82043; 82570; 83036; 84550; 85025; 86140

== ENCOUNTER 2021-12-16 02:40 | Outpatient (CLI) | payer BC, SELFPAY ==
[2021-12-16 12:44] LABS: Anion Gap 9.5 mmol/L (3-11); BUN 10 mg/dL (7-18); CO2 30.5 mmol/L (21.0-32.0); Calcium 9.1 mg/dL (8.5-10.1); Chloride 100 mmol/L (98-107); Glucose 139 mg/dL (74-106); Potassium 3.3 mmol/L (3.5-5.1); Sodium 140 mmol/L (136-145)
== END 2021-12-16 02:41 | disposition home or self-care (01) ==
LOC: LOS 02:40
PROVIDERS: PCP Nurse Practitioner Family; Visit Provider Nurse Practitioner Family
DX: E11.9 Type 2 diabetes mellitus without complications (principal)
CPT/HCPCS: 36415; 80048

== ENCOUNTER 2022-06-29 02:25 | Outpatient (CLI) | payer BC, SELFPAY ==
[2022-06-29 12:40] LABS: Anion Gap 6.5 mmol/L (3-11); BUN 13 mg/dL (7-18); CO2 31.5 mmol/L (21.0-32.0); CREATININE 1.1 mg/dL (0.70-1.30); Calcium 9.3 mg/dL (8.5-10.1); Chloride 100 mmol/L (98-107); Glucose 138 mg/dL (74-106); Potassium 3.8 mmol/L (3.5-5.1); Sodium 138 mmol/L (136-145)
== END 2022-06-29 02:26 | disposition home or self-care (01) ==
LOC: LOS 02:25
PROVIDERS: PCP Nurse Practitioner Family; Visit Provider Nurse Practitioner Family
DX: E11.40 Type 2 diabetes mellitus with diabetic neuropathy, unspecified (principal)
CPT/HCPCS: 36415; 80048

== ENCOUNTER 2022-08-17 18:38 | Outpatient (REF) | payer BC, SELFPAY ==
[2022-08-17 13:32] LABS: Anion Gap 7.9 mmol/L (3-11); BUN 14 mg/dL (7-18); CO2 30.1 mmol/L (21.0-32.0); CREATININE 1.1 mg/dL (0.70-1.30); Calcium 9.4 mg/dL (8.5-10.1); Chloride 103 mmol/L (98-107); Glucose 134 mg/dL (74-106); Potassium 3.8 mmol/L (3.5-5.1); Sodium 141 mmol/L (136-145); Uric Acid 5.2 mg/dL (3.5-7.2)
== END 2022-08-17 18:39 | disposition home or self-care (01) ==
LOC: LBN 18:38
PROVIDERS: PCP Nurse Practitioner Family; Visit Provider Nurse Practitioner Family
DX: M79.671 Pain in right foot (principal); E11.40 Type 2 diabetes mellitus with diabetic neuropathy, unspecified
CPT/HCPCS: 80048; 84550

== ENCOUNTER 2022-08-20 00:53 | Outpatient (CLI) | payer BC, SELFPAY ==
--- NOTE | 2022-08-20 07:15 | DI.RAD_ITS ---
Exam(s) XR FOOT RT COMPLETE EXAM: XR FOOT RT COMPLETE CLINICAL HISTORY: atraumatic pain right metatarsal,RT FOOT PAIN, M79.671. TECHNIQUE: 2D digital imaging was performed. COMPARISON: No exams were available for comparison FINDINGS: 3 views No evidence of fracture or diastasis of the Lisfranc joint. Mild hallux valgus. No significant narr owing of the great toe MTP joint. Moderate size inferior calcaneal spur is noted as is calcification at the posterior calcaneus insertion site of the Achilles tendon. Vascular calcifications noted in the dorsalis pedis vessel. There is no radiopaque foreign body. Th ere is no radiographic evidence of osteomyelitis. IMPRESSION: As above. DATA REPOSITORY: RADIATION DOSE DELIVERED:
== END 2022-08-20 01:13 ==
LOC: DI 00:53
PROVIDERS: PCP Nurse Practitioner Family; Visit Provider Nurse Practitioner Family
DX: M79.671 Pain in right foot (principal)
CPT/HCPCS: 73630

== ENCOUNTER 2022-08-28 21:49 | Emergency (ER) | payer BC, SELFPAY ==
[2022-08-28 21:52] VITALS: BP 156/93; PULSE 62; RESP 18; TEMP 37.1; O2SAT 94
--- NOTE | 2022-08-28 22:00 | DI.RAD_ITS ---
Exam(s) XR SHOULDER LT COMPLETE 2+V XR HUMERUS LT EXAM: XR SHOULDER LT COMPLETE 2+V and XR humerus LT CLINICAL HISTORY: Fall. TECHNIQUE: 2D digital imaging was performed of the left shoulder. Seven images were obtained. AP, Grashey, and Y views were obtained. COMPARISON: CR,XR XR HUMERUS LT from 08/28/2022 FINDINGS: BONES: No acute fracture is present. No bony destructive lesion is seen. JOINTS: No dislocation present. Well corticated osseous densities are seen adjacent to the lateral ep icondyle of the humerus which may reflect sequelae of old trauma. Degenerative changes are seen at t he acromioclavicular joint. SOFT TISSUE: Normal. IMPRESSION: No acute fracture or dislocation seen in the left shoulder or humerus. DATA REPOSITORY: RADIATION DOSE DELIVERED:
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
--- NOTE | 2022-08-28 22:55 | DI.VRAD_ITS ---
PROCEDURE INFORMATION: Exam: XR Left Humerus Exam date and time: 08/28/2022 10:18 PM Age: 62 years old Clinical indication: Injury or trauma; Fall TECHNIQUE: Imaging protocol: Radiologic exam of the left humerus. Views: 2 or more views. COMPARISON: CR XR SHOULDER LT COMPLETE 2+V 08/28/2022 10:16 PM FINDINGS: Bones/joints: Frontal and oblique lateral views of the left humerus reveal no acute fracture or dislocation. There are ossific fragments along the lateral epicondyle of the humerus, possibly degenerative calcifications or a sequela of old trauma. Soft tissues: No gross soft tissue abnormality is seen in the left upper arm. IMPRESSION: No acute humeral fracture seen. Dictated and Authenticated by: Lamont Block MD. Ordering:ORVILLE Molina MD
--- NOTE | 2022-08-28 22:57 | DI.VRAD_ITS ---
PROCEDURE INFORMATION: Exam: XR Left Shoulder Exam date and time: 08/28/2022 10:16 PM Age: 62 years old Clinical indication: Injury or trauma; Fall TECHNIQUE: Imaging protocol: Radiologic exam of the left shoulder. Views: 2 or more views. COMPARISON: CR XR CERVICAL SPINE COMP 4-5V 09/24/2020 10:10 AM FINDINGS: Bones/joints: Four views of the left shoulder reveal no acute fracture or dislocation. Soft tissues: No gross focal soft tissue abnormality is demonstrated. IMPRESSION: No acute fracture or dislocation seen at the left shoulder. Dictated and Authenticated by: Lamont Block MD. Ordering:ORVILLE Molina MD
--- NOTE | 2022-08-28 23:17 | NUR.NOTE ---
Nursing Note:Pt out of ER with left arm in sling.
== END 2022-08-28 23:16 | disposition home or self-care (01) ==
PROVIDERS: Emergency Provider Registered Nurse Emergency; PCP Nurse Practitioner Family
DX: S49.92XA Unspecified injury of left shoulder and upper arm, initial encounter (principal); W05.1XXA Fall from non-moving nonmotorized scooter, initial encounter
CPT/HCPCS: 99283; 73030; 73060; 99284

== ENCOUNTER 2022-09-20 01:24 | Outpatient (CLI) | payer BC, SELFPAY ==
--- NOTE | 2022-09-20 07:00 | DI.MRI_ITS ---
Exam(s) MR UPPER JOINT LT WO EXAM: MR UPPER JOINT LT WO CLINICAL HISTORY: Left shoulder injury, limited ROM, ? rotator cuff tear,S49.92xa. TECHNIQUE: Multiplanar multisequence MRI was performed. COMPARISON: CR,XR XR SHOULDER LT COMPLETE 2+V from 08/28/2022 FINDINGS: BONES: There is no fracture or contusion pattern. JOINTS: Mild degenerative changes are seen at the acromioclavicular joint. The glenohumeral joint is normal. TENDONS: Supraspinatus: There is a full-thickness tear of the supraspinatus tendon with a gap of approximately 1.5 cm. Infraspinatus: There is tendinosis of the infraspinatus tendon. Subscapularis: There is tendinosis of the subscapularis tendon. Hyperintense signal is seen within t he substance of the subscapularis tendon consistent with a intrasubstance partial tear. Teres Minor: Unremarkable. Biceps and Jefferson: There is tendinosis of the biceps tendon. MUSCLES: There is mild atrophy of the supraspinatus muscle. The remaining rotator cuff muscles show normal signal and size. GLENOID LABRUM: Unremarkable on this noncontrast examination. SOFT TISSUES: Unremarkable. LIGAMENTS: Unremarkable. OTHER: There is fluid in the subacromial subdeltoid bursa consistent with a full-thickness supraspina tus tendon tear. IMPRESSION: 1. Full-thickness supraspinatus tendon tear with a gap of 1.5 cm. 2. Intrasubstance tear of the subscapularis tendon. 3. Tendinosis of the infraspinatus, subscapularis and biceps tendon. 4. Mild atrophy of the supraspinatus muscle. 5. Degenerative changes seen at the acromioclavicular joint. 6. Fluid seen in the subacromial subdeltoid bursa consistent with a full-thickness supraspinatus tend on tear. DATA REPOSITORY:
== END 2022-09-20 01:44 ==
LOC: DI 01:24
PROVIDERS: PCP Nurse Practitioner Family; Visit Provider Nurse Practitioner Family
DX: M75.102 Unspecified rotator cuff tear or rupture of left shoulder, not specified as traumatic (principal); M19.012 Primary osteoarthritis, left shoulder
CPT/HCPCS: 73221

== ENCOUNTER 2022-10-29 06:17 | Day surgery (SDC) | payer BC, SELFPAY ==
[2022-10-29] VITALS (15 sets, daily range): BP systolic 99–138; BP diastolic 62–86; PULSE 59–79; RESP 10–18; TEMP 36.2–36.5; O2SAT 94–97; BMI 31.6
[2022-10-29] MEDS: Lactated Ringers 1,000 ML 30 ML IV (07:05)
--- NOTE | 2022-10-29 07:05 | W.ANESPRE ---
General Info Date of Service Date Performed: 10/29/22 Height: 5 ft 5.5 in Weight: 87.5 kg Body Mass Index (BMI): 31.6 Surgical Procedure: Operation Date: 10/29/22 07:40 Proposed Procedure Side Surgeon p Shoulder Rotator Cuff Arthroscopic w/Extensive Debridement, Biceps Tenodesis, Subacromial Decompression Left Felipe Corey MD Meds Allergies and Home Medications Allergies Allergy/AdvReac Type Severity Reaction Status Date / Time No Known Drug Allergies Allergy Verified 10/29/22 06:30 Home Medication Medication Instructions Recorded aspirin 81 mg tablet,delayed 81 mg PO DAILY 07/04/12 release (Aspir-) mecobalamin (vitamin B12) 1,000 1,000 mcg sublingual DAILY 03/11/21 mcg disintegrating tablet,sublingual chlorthalidone 25 mg tablet 25 mg PO DAILY #90 tabs 02/26/22 famotidine 20 mg tablet 20 mg PO BID #180 tabs 06/24/22 fluticasone propionate 110 1 puff inhalation BID #12 grams 06/24/22 mcg/actuation HFA aerosol inhaler (Flovent HFA) glipizide 5 mg tablet, extended 5 mg PO DAILY #90 tabs 06/24/22 release 24 hr metformin 500 mg tablet 500 mg PO DAILY #90 tabs 06/24/22 omeprazole 40 mg capsule,delayed 40 mg PO BID #180 caps 06/24/22 release simvastatin 40 mg tablet 40 mg PO HS #90 tabs 06/24/22 sucralfate 1 gram tablet 1 g PO QID PRN GERD #360 tabs 06/24/22 albuterol sulfate 90 mcg/actuation 2 puff inhalation QID PRN 08/17/22 aerosol inhaler shortness of breath or wheezing #18 grams lancets 28 gauge #200 ea 09/30/22 blood sugar diagnostic (FreeStyle #200 ea 10/24/22 Test strips) blood-glucose meter (FreeStyle #1 ea 10/24/22 Warrior kit) naproxen 250 mg tablet 250 - 500 mg PO BID PRN #40 tabs 10/29/22 oxycodone 5 mg tablet 5 - 10 mg PO Q4H PRN moderate to 10/29/22 severe pain #18 tabs Current Visit Medications: Current Medications Generic Name Dose Route Start Last Admin Trade Name Freq PRN Reason Stop Dose Admin Ringer's Solution 1,000 mls @ 30 mls/hr 10/29/22 06:00 IV 11/27/22 23:59 INFUSION KAREN Cefazolin Sodium/Dextrose 2 gm in 50 mls @ 100 mls/hr 10/29/22 06:00 Ancef Duplex IVPB 11/27/22 23:59 PREOP KAREN IV Miscellaneous Supplies 1 each 10/29/22 06:00 Iv Access IV 11/27/22 23:59 DIRECTED KAREN Oxycodone HCl 0 mg 10/29/22 07:00 Oxycodone 5 Mg Tab PO 11/28/22 06:59 Q3H PRN PRN Pain Sodium Chloride 0 ml 10/29/22 06:00 Normal Saline Flush 10 Ml Syr IV 11/27/22 23:59 PRN PRN Sodium Chloride 0 ml 10/29/22 06:00 Normal Saline 10 Ml Vial IJ 11/27/22 23:59 DIRECTED PRN Sterile Water 0 ml 10/29/22 06:00 Water,Injection,Sterile 10 Ml Vial IJ 11/27/22 23:59 DIRECTED PRN PFSH Active Problems Active Problems: Problem Status Onset Code Traumatic tear of left rotator cuff ~07/2022 S46.012A Type 2 diabetes mellitus with diabetic neuropathy E11.40 Carpal tunnel syndrome of left wrist G56.02 Essential hypertension I10 Hyperlipidemia Gastroesophageal reflux disease with esophagitis K21.0 Dysphagia R13.10 Mild persistent asthma J45.30 Primary osteoarthritis of left knee M17.12 Diplopia H53.2 Obesity E66.9 Sigmoid diverticulosis K57.30 Surgical History Surgical History History of carpal tunnel surgery of right wrist History of esophagogastroduodenoscopy (EGD) (12/29/16) And in 2016 History of medial meniscus repair of left knee (04/02/21) Partial medial & lateral meniscectomy, chondroplasty S/P appendectomy S/P colonoscopy (09/01/12) S/P left knee arthroscopy (09/02/09) With chondroplasty patella and open lateral retinacular release S/P trigger finger release (07/04/17) Of Right middle finger; also had right ring finger done in 2009 Tobacco Smoking/Tobacco Use Status: Former Tobacco Use Smokeless tobacco user: other Passive smoking exposure: Yes Second hand exposure: No Alcohol Alcohol Intake: current Alcohol intake frequency: holidays/special occasions only Substance Use Substance use: Never Substance use type: does not use Vital Signs and Lab Results Vital Signs Most Recent Vital Signs in EMR: Most Recent Vital Signs Temp Pulse Resp BP Pulse Ox 36.5 C 59 L 14 138/75 96 10/29/22 06:35 10/29/22 06:35 10/29/22 06:35 10/29/22 06:35 10/29/22 06:35 Lab Results Blood Type / Crossmatch: No Data to Display Complete Blood Count: No Data to Display Complete Metabolic Panel: No Data to Display Liver Function Panel: No Data to Display Coagulation Panel: No Data to Display Cardiac Panel: No Data to Display Arterial Blood Gas: No Data to Display Venous Blood Gas: No Data to Display Pancreas Panel: No Data to Display Thyroid Panel: No Data to Display Infectious Disease: No Data to Display Blood Cultures: No Data to Display Toxicology Panel: No Data to Display Anesthesia Assessment and Plan Anesthesia History Personal History: No History of Anesthesia Complications Family History: No Family History of Anesthesia Complications Exercise Tolerance Exercise Tolerance: Metabolic Equivalents>4 Pertinent Negatives Pertinent Negatives: No Symptoms of GERD, No Major Cardiovascular Symptoms or Complaints and No Major Pulmonary Symptoms or Complaints Cardiac & Pulmonary Exam Cardiac Exam: Normal S1/S2 Heart Sounds Pulmonary Exam: Clear Bilateral Breath Sounds Implantable Cardiac Device Does patient have a Pacemaker or an ICD?: No Airway Exam Known Difficult Airway: No Mallampati Class: 2 Mouth Opening: Normal (> 3cm) Thyromental Distance: Less than 3 cm Neck Range of Motion: Full ROM Neck Circumference: Normal Teeth Condition: Generalized Poor Dentition ASA Classification ASA Score: ASA 2 Emergency Case?: No NPO Status NPO Status: NPO Clears >2 hours, Solids >8 hours Anesthesia Plan Resuscitation Status: Full Code Anesthesia Technique: General Anesthesia Airway Planned: Endotracheal Tube Pain Management: Surgeon and patient request nerve block Monitors Used: Standard Monitors
--- NOTE | 2022-10-29 07:08 | ROE_ITS ---
Date of service: 10/29/22 Time of Service: 07:30 Operative Note Operative Note DATE OF PROCEDURE: 10/29/22 PRE-OP DIAGNOSIS: Left: 1. Rotator cuff tear 2. LHB tendinopathy 3. Bursitis POST-OP DIAGNOSIS: same PROCEDURE: Left: 1. Rotator cuff repair, CPT# 16546. This involved repair of the supraspinatus using anchors and sutures to reattach the rotator cuff back to the footprint of the greater tuberosity. 2. Arthroscopic biceps tenodesis, CPT# 20651. This involved arthroscopically suturing and reattaching the long head of the biceps tendon to the proximal humerus at the superior margin of the bicipital groove with a screw at the correct tension. 3. Extensive debridement, CPT# 64586. This involved using arthroscopic hand instruments, power instruments, and radiofrequency instruments to release the long head of the biceps tendon and debride areas of anterior and posterior labral tearing, SLAP tearing, significant rotator interval synovitis, and greater tuberosity humeral head scar tissue. 4. Subacromial decompression with partial acromioplasty, CPT# 42969. This involved using arthroscopic power instruments and a radiofrequency wand to complete a bursectomy and smooth the undersurface of the acromion. The resident assistant cna was medically required in order to help assist in techniques above, which require positioning the arm, holding the arthroscope, and manipulating multiple instruments and sutures at the same time. This cannot be done without the help of an experienced resident assistant cna. SURGEON: Felipe Corey FORENSIC DOCUMENT EXAMINER: Alyse Guan ANESTHESIA TYPE: General LMA/ETT and Primary Nerve Block Refer to Anesthesia Record ESTIMATED BLOOD LOSS: 10 PATHOLOGY: none sent COMPLICATIONS: None Patient was transported to: PACU Patient's condition: stable Implants: Arthrex: 4.75mm SwiveLocks x 4 Indications: The patient was diagnosed with the above conditions and appropriately indicated for surgical intervention. Please see complete medical record for details. Findings: Exam under anesthesia: 80% full range of motion, readily restored to near?full range of motion with slight stretch/manipulation. No instability. Glenohumeral joint: Significant anterior rotator interval synovitis. Scarring and adhesions about the [facility] L, subscapularis, high-grade partial intrasubstance tearing throughout the entire articular segment of the biceps tendon, disruption of the transverse humeral ligament, degenerative but largely intact subscapularis, large full-thickness moderately retracted supraspinatus rotator cuff tear, only mild infraspinatus anterior involvement. Subacromial space: Moderate bursitis. Minimal anterior lateral acromial bone spurring. Large retracted supraspinatus rotator cuff tear starting past the bicipital groove and stopping at the infraspinatus. Significant thickened and abnormal supraspinatus tendon tissue. Procedure Description: In the operating room, general anesthesia was induced. Bilateral shoulders were examined. The patient was positioned in the beachchair position. All bony prominences were well-padded. Preoperative antibiotics were administered. The shoulder was prepped and draped in the usual sterile fashion. The correct patient, procedure, and side of the procedure were all verified prior to incision. Starting through the posterior portal a standard complete diagnostic arthroscopy was performed of the glenohumeral joint including inspection of the long head of the biceps, anterior and superior labrum, subscapularis tendon, supraspinatus and infraspinatus tendons, and axillary recess. The glenoid and humeral head cartilage as well as the posterior labrum were inspected from an anterior superior lateral viewing portal established through the full-thickness rotator cuff tear. Significant findings and interventions noted above. The biceps tendon was exposed given the disruption of the transverse humeral ligament. An all-arthroscopic suprapectoral biceps tenodesis was performed through an anterior portal using a Loop N Tack method with a SutureTape FiberLink cinched around and through the tendon at the appropriate level at the superior aspect of the bicipital groove. The biceps was tenotomized from the labrum and repair suture protected out the cannula for later fixation and completion tenodesis with the anterior medial row rotator cuff repair anchor. Starting through the superior anterolateral portal, the arthroscope was directed into the subacromial space. A lateral 50 yard line lateral portal was created. A combination of power instruments and a radiofrequency ablator were used to debride bursitis anteriorly, posteriorly, and laterally as well as expose and smooth bone spurring on the undersurface of the acromion. The coracoacromial ligament was only mildly released. The bursectomy was completed viewing laterally and working from posteriorly and the rotator cuff was thoroughly inspected with findings noted above. The Sarita working cannula was inserted lateral. A posterior superior lateral viewing portal was also established. The large supraspinatus rotator cuff tear was carefully inspected, debrided of unhealthy tissue to a more stable margin, arm position optimized and rotator cuff grasper used to confirm appropriate mobility and reduction over the greater tuberosity after release adhesions above and below the rotator cuff. The greater tuberosity footprint was thoroughly prepared to optimize bone tendon healing with the mechanical shaver and hand instruments including the rasps. A medial row anchor was prepunched and then inserted containing the biceps repair suture completing repair tenodesis of the biceps tendon and also loaded with FiberTape's for the rotator cuff repair. Additional FiberTape's and a posterior medial row anchor were inserted. The self retrieving suture passer was then used to place a FiberLink in cinch mode anterior and posterior to the anterior medial row FiberTape securing the supraspinatus over the biceps as well as between the anchors given the large tear. A single FiberTape from the anterior medial and posterior medial anchors was brought out lateral and secured to an anterior lateral anchor with these additional FiberLink's with appropriate tension on all repair sutures. Similarly, the self retrieving suture passer was used to place an additional 2 FiberLink's between the medial row repair sutures and more posterior incorporating the upper supraspinatus wrapping around, the remaining FiberTape's were brought out lateral, and all the sutures secured to a posterior lateral row final swivel lock anchor. The repair was inspected and stable through range of motion and testing. There was excellent reduction of the large tear over the greater tuberosity. The compression posteriorly slightly unloaded the repair sutures anteriorly. The repair was stable through range of motion and testing. The shoulder was drained of arthroscopic fluid. All portal sites were copiously irrigated. These incisions were closed using 3-0 Monocryl in a buried fashion and then covered with Mastisol, Steri-Strips, Xeroform, dry gauze, and ABDs. The dressings were covered and secured with Medipore tape. The operative extremity was placed into a sling for immobilization. The patient awoke from anesthesia without complication and was transferred to the recovery room in a stable condition.
--- NOTE | 2022-10-29 07:10 | PDOC.DSDIS_ITS ---
Date of service: 10/29/22 Time of Service: 12:00 Discharge Plan Disposition Patient Disposition: Home Discharge Details Attending Provider: Felipe Corey Primary Care Provider: Zuleika Vergara Home Meds and New Rx's Prescriptions: New naproxen 250 mg tablet 250 - 500 mg PO BID PRNQty: 40 0RF Rx Instructions: take with a meal oxycodone 5 mg tablet 5 - 10 mg PO Q4H MDD 30 mg PRN (Reason: moderate to severe pain) Qty: 18 0RF Continued mecobalamin (vitamin B12) 1,000 mcg tablet,disintegrating 1,000 mcg sublingual DAILY Rx Instructions: place tablet under tongue and allow to dissolve for at least30 secs before swallowing famotidine 20 mg tablet 20 mg PO BID Qty: 180 3RF fluticasone propionate [Flovent HFA] 110 mcg/actuation HFA aerosol inhaler 1 puff IH BID Qty: 12 4RF glipizide 5 mg tablet extended release 24hr 5 mg PO DAILY Qty: 90 3RF Rx Instructions: Take 1 tablet once a day in the morning metformin 500 mg tablet 500 mg PO DAILY Qty: 90 3RF Rx Instructions: Take 1 tablet daily omeprazole 40 mg capsule,delayed release(DR/EC) 40 mg PO BID Qty: 180 3RF Rx Instructions: Take 1 tablet twice a day simvastatin 40 mg tablet 40 mg PO HS Qty: 90 3RF Rx Instructions: Take 1 tablet at bedtime sucralfate 1 gram tablet 1 g PO QID PRN (Reason: GERD) Qty: 360 3RF albuterol sulfate 90 mcg/actuation HFA aerosol inhaler 2 puff IH QID PRN (Reason: shortness of breath or wheezing) Qty: 18 4RF aspirin [Aspir-81] 81 MG tablet,delayed release (DR/EC) 81 mg PO DAILY chlorthalidone 25 mg tablet 25 mg PO DAILY Qty: 90 3RF Rx Instructions: Take 1 tablet once a day (DME) lancets 28 gauge misc See Rx Instructions .Route Qty: 200 3RF Rx Instructions: Check blood sugar twice a day (DME) blood-glucose meter [FreeStyle [place]] Kit See Rx Instructions .Route Qty: 1 3RF Rx Instructions: Check blood sugar twice a day (DME) FreeStyle Test Strip See Rx Instructions .ROUTE .MEDSUPPLY Qty: 200 4RF Rx Instructions: Check blood sugar twice a day Discharge Instructions Additional Instructions: Surgery: Left shoulder arthroscopy with rotator cuff repair (supraspinatus), biceps tenodesis, extensive debridement, and subacromial decompression. Activity: For 6 weeks, you should keep your arm at your side in a neutral position at all times except for physical therapy. Do not try to lift or raise your arm using your own muscles. You should use the sling whenever you are out of the house. You may have to adjust the abduction pillow or remove it for comfort. At home it is best to remove the sling and rest the arm on a pillow at your side or support the operative side with your other hand. You may allow the arm to dangle at your side. A physical therapy prescription will be sent electronically to begin in about 3 weeks. STANDARD protocol. Prescriptions: Resume daily aspirin tomorrow Naproxen 250 mg take 1-2 every 12 hours with a meal as needed for moderate pain Oxycodone 5 mg take 1-2 every 4-6 hours as needed for severe pain You may use [id number] Tylenol (acetaminophen) as needed for mild pain. These pain medications may be taken all at once or in different combinations as needed. Also, recommend Colace (docusate) as a stool softener as surgery and pain medicine cause constipation. You may try [id number] diphenhydramine (Benadryl) 25-50 mg nightly as a sleep aid Dressings: Remove shoulder bandage after 3 days. Leave the sticky Steri-Strips in place until they fall off or remove them after you shower. Cover the incisions with Band-Aids or leave them open to air. You may shower after 5 days. Follow-up: 10-[address] Corey You may take off the leg compression stockings this evening at home. You may also leave them on a few days longer if you have a history of leg swelling or edema. Let us know right away if you develop any redness, drainage, fevers, chest pain, or trouble breathing. Do not drink alcohol or drive for at least 24 hours after anesthesia. Please call the office during business hours with any questions or concerns. Discharge Orders Discharge Orders: Discharge Order (Routine); Ordered 10/29/22 Ordered By: Felipe M Korsh DS: Diagnosis Discharge Diagnosis (1) Traumatic tear of left rotator cuff: Status: Acute
[2022-10-29] MEDS: ceFAZolin 2 GM/50 ML BAG IVPB (07:29)
--- NOTE | 2022-10-29 08:11 | W.ANESNERVE ---
Nerve Block Single Injection Procedure Date and Time Date Performed: 10/29/22 Procedure Start: 07:20 Location Where Procedure Performed Procedure Location: Day Surgery Unit Reason Performed: Postoperative Analgesia Requesting Provider: Felipe Corey Timeout Performed Timeout Performed: Yes Monitoring Used ECG, Blood Pressure, SpO2 and See EMR for corresponding vital signs Sterility Sterility: Hand Hygiene, Surgical Cap, Surgical Mask, Sterile Gloves and Chlorhexidine Sedation Given During Procedure Sedation Given (Indicate Dose Given): Versed IV Dose:: 2mg Patient Mental Status Patient Mental Status: Sedate with meaningful communication Nerve Block 1st Nerve Block: Laterality: Left Block Type: Interscalene Ultrasound Image Saved?: Yes Needle / Catheter Used: 100mm SonoPlex II Local Anesthetic Bolus (Indicate Dose Given): Lidocaine used for local infiltration of skin, Injected in 3-5ml increments after negative blood aspiration, Bupivacaine 0.5% Dose:: 10ml and Exparel Dose:: 10ml Additives (Indicate Dose Given): None Ultrasound: Sterile probe cover and gel used Nerve Stimulator: Supplement to Ultrasound use and No twitch or parasthesia noted < 0.5 mA Paresthesia: None Procedure Tolerated: No Complications and Patient tolerated well Procedure Outcome: Successful Performed By: Herrera Parada
[2022-10-29] MEDS: EPINEPHrine 30 MG/30 ML VIAL (09:05)
[2022-10-29] MEDS: Normal Saline 10 ML VIAL IJ (10:27)
[2022-10-29] MEDS: HYDROmorphone 2 MG/ML SYR IVP ×2 (10:30→10:51)
--- NOTE | 2022-10-29 11:52 | W.ANESPOSTOP ---
Postoperative Evaluation Date, Time and Location Date Performed: 10/29/22 Time Performed: 11:52 Patient Location: Day Surgery Unit Vital Signs Most Recent Imported Vital Signs: Most Recent Vital Signs Temp Pulse Resp BP Pulse Ox 36.2 C L 73 14 118/82 94 10/29/22 11:25 10/29/22 11:25 10/29/22 11:25 10/29/22 11:25 10/29/22 11:25 Pain Score Most Recent Pain Score: Most Recent Pain Score Pain Level 0 10/29/22 11:25 Assessment Mental Status: Awake (Alert & Oriented to Patient Baseline) Airway and Respiratory Function: Patent airway with normal (patient baseline) respiratory exam Cardiovascular Function: Hemodynamically Stable Hydration Status: Adequately Hydrated Nausea & Vomiting: No Nausea or Vomiting Pain: Pain is tolerable per patient Peripheral Nerve Block: Regional nerve block not resolved at time of post operative discharge
== END 2022-10-29 14:00 | disposition home or self-care (01) ==
PROVIDERS: PCP Nurse Practitioner Family; Visit Provider Student in an Organized Health Care Education/Training Program
PROC: (CPT 29827; principal; 2022-10-29 07:30)
DX: M75.112 Incomplete rotator cuff tear or rupture of left shoulder, not specified as traumatic (principal); M75.22 Bicipital tendinitis, left shoulder; M75.52 Bursitis of left shoulder; E11.40 Type 2 diabetes mellitus with diabetic neuropathy, unspecified; Z79.84 Long term (current) use of oral hypoglycemic drugs
CPT/HCPCS: 29827; 29826; 29828; 29823; 76942; J0131; J0690; J1100; J1170; J1885; J2001; J2250; J2371; J2405; J2704

== ENCOUNTER → 2023-02-23 02:46 | Outpatient (CLI) | payer BC, SELFPAY ==
--- NOTE | 2023-02-23 11:10 | DI.MRI_ITS ---
Exam(s) MR UPPER JOINT LT WO EXAM: MR UPPER JOINT LT WO CLINICAL HISTORY: PAIN,stiffness lt shoulder, traumatic tear lt rotator cuff,s46.012a,m25.612 TECHNIQUE: Multiplanar multisequence MRI of the shoulder was performed. COMPARISON: CR,XR XR HUMERUS LT from 08/28/2022 MR MR UPPER JOINT LT WO from 09/20/2022 FINDINGS: MARROW:There has been interval rotator cuff surgery. There are multiple fastener devices in the late ral humeral head-greater tuberosity region. ROTATOR CUFF MECHANISM: AC JOINT/ACROMIUM: There are moderate degenerative changes in the AC joint. Fluid signal seen within the joint space. No prominent downgoing osteophytes.. There is no evidence of os acromiale. Supraspinatus: There is signal abnormality within the supraspinatus tendon consistent with tendinitis and partial surface articular side tearing at the 5th foot pad region insertion just above the great er tuberosity. There is no retraction.. There is a sliver of fluid in the subacromial bursa space. Infraspinatus: There is some fluid signal on the articular surface side of the infraspinatus tendon c onsistent with partial tearing. No full-thickness tear. Teres Minor: Intact. No evidence of tear nor muscle atrophy. Subscapularis/anterior cuff: Appears intact. BICEPS TENDON: Evident within the intertubercular groove but attenuated above this level. Suspect po ssible interval tenodesis. LABRUM: No labral tear identified. No evidence of paralabral cyst. LABROLIGAMENTOUS/CAPSULAR COMPLEX: No evidence of [place] lesion. However, there is signal abnormality now evident in the inferior adrianne ohumeral ligament consistent with partial tearing, this finding not present on the prior August 2022 lm dy. GLENOHUMERAL JOINT: No joint effusion or loose intra-articular bodies evident. No osteophytes. Some mild cartilage loss. No degenerative subarticular cysts evident. QUADRILATERAL SPACE: No evidence of mass in the region of the axillary nerve and dorsal circumflex hu meral vessels. Visualized triceps muscle at this level appears unremarkable. IMPRESSION: 1. Compared to the prior MRI scan of 09/20/2022 there has been interval rotator cuff repair surgery. Some signal abnormality within the supraspinatus tendon just above the greater tuberosity consistent with significant partial articular surface side tearing. Also some signal abnormality on the articu lar side surface of the infraspinatus, also without full-thickness tear. 2. Intra-articular biceps tendon appearance is most probably from tenodesis. Biceps is poorly visual ized above the level of the subscapularis. It is not displaced from the intertubercular groove. 3. There is no obvious labral tear but there is now edema signal evident in the inferior glenohumeral ligament, not previously present, consistent with element of partial tearing of the inferior capsule at this level. DATA REPOSITORY:
== END ==
PROVIDERS: PCP Nurse Practitioner Family; Visit Provider Student in an Organized Health Care Education/Training Program
DX: M25.612 Stiffness of left shoulder, not elsewhere classified (principal); S46.012A Strain of muscle(s) and tendon(s) of the rotator cuff of left shoulder, initial encounter; X58.XXXA Exposure to other specified factors, initial encounter
CPT/HCPCS: 73221

== ENCOUNTER 2023-02-23 03:30 | Outpatient (CLI) | payer BC, SELFPAY ==
[2023-02-23 11:12] LABS: Abs Immature Grans 0.02 10^3/uL (0.0-0.06); Absolute Basophil Count 0.06 10^3/uL (0.0-0.2); Absolute Eosinophil Count 0.45 10^3/uL (0.0-0.7); Absolute Lymphocyte Count 2.79 10^3/uL (1.2-3.4); Absolute Monocyte Count 0.63 10^3/uL (0.1-0.8); Absolute Neutrophil Count 3.79 10^3/uL (1.2-6.7); Basophils % 0.8; Eosinophils % 5.8; HCT 42.5 % (40.0-50.0); HGB 14.6 g/dL (13.5-17.5); Immature Grans % 0.3; MCH 29.6 pg (27.0-33.0); MCHC 34.4 % (32.0-36.0); MCV 86 fL (80-95); MPV 8.4 fL (8.0-11.0); Monocytes % 8.1; Platelet Count 280 10^3/uL (130-400); RBC 4.93 10^6/uL (4.36-5.78); RDW 12.8 % (11.8-14.1); RDW-SD 40.4 fL; WBC 7.74 10^3/uL (4.4-10.8)
[2023-02-23 11:37] LABS: C-Reactive Protein 0.11 mg/dL (0.0-0.3)
== END 2023-02-23 03:31 | disposition home or self-care (01) ==
LOC: LBO 03:30
PROVIDERS: PCP Nurse Practitioner Family; Visit Provider Student in an Organized Health Care Education/Training Program
DX: M25.612 Stiffness of left shoulder, not elsewhere classified (principal); S46.012A Strain of muscle(s) and tendon(s) of the rotator cuff of left shoulder, initial encounter
CPT/HCPCS: 36415; 85025; 86140

== ENCOUNTER 2023-03-10 11:04 | Day surgery (SDC) | payer BC, SELFPAY ==
[2023-03-10] VITALS (14 sets, daily range): BP systolic 119–147; BP diastolic 58–92; PULSE 52–73; RESP 12–19; TEMP 36.1–36.6; O2SAT 91–97; BMI 32.6
--- NOTE | 2023-03-10 11:28 | W.PM.DSUDISC ---
Date of service: 03/10/23 Time of Service: 14:00 Discharge Plan Disposition Patient Disposition: Home Condition: Stable Discharge Details Attending Provider: Felipe Corey Primary Care Provider: Zuleika Vergara Home Meds and New Rx's Prescriptions: New naproxen 250 mg tablet 250 - 500 mg PO BID PRN (Reason: Moderate pain) Qty: 40 0RF oxycodone 5 mg tablet 5 - 10 mg PO Q4H PRN (Reason: Moderate to severe pain) Qty: 12 0RF Continued mecobalamin (vitamin B12) 1,000 mcg tablet,disintegrating 1,000 mcg sublingual DAILY Rx Instructions: place tablet under tongue and allow to dissolve for at least30 secs before swallowing famotidine 20 mg tablet 20 mg PO BID Qty: 180 3RF fluticasone propionate [Flovent HFA] 110 mcg/actuation HFA aerosol inhaler 1 puff IH BID Qty: 12 4RF glipizide 5 mg tablet extended release 24hr 5 mg PO DAILY Qty: 90 3RF Rx Instructions: Take 1 tablet once a day in the morning metformin 500 mg tablet 500 mg PO DAILY Qty: 90 3RF Rx Instructions: Take 1 tablet daily omeprazole 40 mg capsule,delayed release(DR/EC) 40 mg PO BID Qty: 180 3RF Rx Instructions: Take 1 tablet twice a day simvastatin 40 mg tablet 40 mg PO HS Qty: 90 3RF Rx Instructions: Take 1 tablet at bedtime sucralfate 1 gram tablet 1 g PO QID PRN (Reason: GERD) Qty: 360 3RF chlorthalidone 25 mg tablet 25 mg PO DAILY Qty: 90 3RF Rx Instructions: Take 1 tablet once a day potassium chloride 20 mEq tablet extended release 20 meq PO DAILY Qty: 90 3RF albuterol sulfate 90 mcg/actuation HFA aerosol inhaler 2 puff IH QID PRN (Reason: shortness of breath or wheezing) Qty: 18 4RF aspirin [Aspir-81] 81 MG tablet,delayed release (DR/EC) 81 mg PO DAILY (DME) lancets 28 gauge misc See Rx Instructions .Route Qty: 200 3RF Rx Instructions: Check blood sugar twice a day (DME) blood-glucose meter [FreeStyle [place]] Kit See Rx Instructions .Route Qty: 1 3RF Rx Instructions: Check blood sugar twice a day (DME) FreeStyle Test Strip See Rx Instructions .ROUTE .MEDSUPPLY Qty: 200 4RF Rx Instructions: Check blood sugar twice a day diphenhydramine-acetaminophen [Tylenol PM Extra Strength] 25-500 mg tablet 2 tab PO QHS PRN (Reason: left shoulder pain) Qty: 90 0RF Discharge Instructions Additional Instructions: Surgery: Left shoulder manipulation under anesthesia Activity: Encourage increasing range of motion. Perform daily stretching exercises. Resume physical therapy tomorrow. Prescriptions: Naproxen 250 mg take 1-2 every 12 hours with a meal as needed for moderate pain Oxycodone 5 mg take 1-2 every 4-6 hours as needed for severe pain You may use [id number] Tylenol (acetaminophen) as needed for mild pain. These pain medications may be taken all at once or in different combinations as needed. Also, recommend Colace (docusate) as a stool softener as surgery and pain medicine cause constipation. You may try [id number] diphenhydramine (Benadryl) 25-50 mg nightly as a sleep aid Dressings: None Follow-up: 10-[address] Corey You may take off the leg compression stockings this evening at home. You may also leave them on a few days longer if you have a history of leg swelling or edema. Let us know right away if you develop any redness, drainage, fevers, chest pain, or trouble breathing. Do not drink alcohol or drive for at least 24 hours after anesthesia. Please call the office during business hours with any questions or concerns. Discharge Orders Discharge Orders: Discharge Order (Routine); Ordered 03/10/23 Ordered By: Felipe Corey DS: Diagnosis Discharge Diagnosis (1) Stiffness of left shoulder joint: Status: Acute
--- NOTE | 2023-03-10 11:29 | ROE_ITS ---
Date of service: 03/10/23 Time of Service: 12:00 Operative Note Operative Note DATE OF PROCEDURE: 03/10/23 PRE-OP DIAGNOSIS: Left shoulder stiffness PROCEDURE: Left shoulder manipulation under anesthesia, CPT #14906 SURGEON: Felipe Corey ANESTHESIA TYPE: General LMA/ETT and Primary Nerve Block Refer to Anesthesia Record ESTIMATED BLOOD LOSS: 0 COMPLICATIONS: None Patient was transported to: same day Patient's condition: stable Indications: Please see complete medical record for details. Findings: Excellent release of adhesions, no instability Procedure Description: In the operating room, general anesthesia was induced. The patient was positioned supine on the stretcher. Preoperative antibiotics were omitted. The correct patient, procedure, and side of the procedure were all verified prior to beginning. The Left shoulder was examined with range of motion about 85 degrees forward e levation and 20 degrees external rotation. Internal rotation at about 80 degrees 45 degrees, abduction about 75 degrees. These endpoints had firm, stiff feel. A short lever arm and gradual to steady gentle pressure was used to perform the manipulation alternating between external rotation at the side, forward elevation, and abduction with internal and external rotation. Deliberately gradually and carefully excellent releases were felt in forward elevation and external rotation. Less release needed in abduction and internal rotation. Range of motion was then tested and full and equal to the contralateral side past 145 degrees forward elevation, 55 degrees, rotation, and 75 degrees internal rotation at 90 degrees of abduction. All endpoints were gently exaggerated. The shoulder joint remained stable. While the patient remained under anesthesia, all directions were stretched and repeated numerous times. There were minimal to no mechanical sensations through motion. The patient awoke from anesthesia without complication and was transferred to the recovery room in a stable condition.
--- NOTE | 2023-03-10 11:41 | ANES.PREOP_ITS ---
General Info Date of Service Date Performed: 03/10/23 Height: 5 ft 5 in Weight: 89.1 kg Body Mass Index (BMI): 32.6 Surgical Procedure: Operation Date: 03/10/23 14:40 Proposed Procedure Side Surgeon p Shoulder Manipulation Felipe Corey MD Meds Allergies and Home Medications Allergies Allergy/AdvReac Type Severity Reaction Status Date / Time No Known Drug Allergies Allergy Verified 03/10/23 11:16 Home Medication Medication Instructions Recorded aspirin 81 mg tablet,delayed 81 mg PO DAILY 07/04/12 release (Aspir-) mecobalamin (vitamin B12) 1,000 1,000 mcg sublingual DAILY 03/11/21 mcg disintegrating tablet,sublingual famotidine 20 mg tablet 20 mg PO BID #180 tabs 06/24/22 fluticasone propionate 110 1 puff inhalation BID #12 grams 06/24/22 mcg/actuation HFA aerosol inhaler (Flovent HFA) glipizide 5 mg tablet, extended 5 mg PO DAILY #90 tabs 06/24/22 release 24 hr metformin 500 mg tablet 500 mg PO DAILY #90 tabs 06/24/22 omeprazole 40 mg capsule,delayed 40 mg PO BID #180 caps 06/24/22 release simvastatin 40 mg tablet 40 mg PO HS #90 tabs 06/24/22 sucralfate 1 gram tablet 1 g PO QID PRN GERD #360 tabs 06/24/22 albuterol sulfate 90 mcg/actuation 2 puff inhalation QID PRN 08/17/22 aerosol inhaler shortness of breath or wheezing #18 grams lancets 28 gauge #200 ea 09/30/22 blood sugar diagnostic (FreeStyle #200 ea 10/24/22 Test strips) blood-glucose meter (FreeStyle #1 ea 10/24/22 [place] kit) chlorthalidone 25 mg tablet 25 mg PO DAILY #90 tabs 12/23/22 potassium chloride 20 mEq 20 meq PO DAILY #90 tabs 12/23/22 tablet,extended release diphenhydramine 25 2 tab PO QHS PRN left shoulder 01/14/23 mg-acetaminophen 500 mg tablet pain #90 tabs (Tylenol PM Extra Strength) Current Visit Medications: Current Medications Generic Name Dose Route Start Last Admin Trade Name Freq PRN Reason Stop Dose Admin Ringer's Solution 1,000 mls @ 30 mls/hr 03/10/23 06:00 IV 03/31/23 23:59 INFUSION KAREN IV Miscellaneous Supplies 1 each 03/10/23 06:00 Iv Access IV 03/31/23 23:59 DIRECTED KAREN Oxycodone HCl 0 mg 03/10/23 11:27 Oxycodone 5 Mg Tab PO 04/09/23 11:26 Q3H PRN PRN Pain Sodium Chloride 0 ml 03/10/23 06:00 Normal Saline Flush 10 Ml Syr IV 03/31/23 23:59 PRN PRN Sodium Chloride 0 ml 03/10/23 06:00 Normal Saline 10 Ml Vial IJ 03/31/23 23:59 DIRECTED PRN Sterile Water 0 ml 03/10/23 06:00 Water,Injection,Sterile 10 Ml Vial IJ 03/31/23 23:59 DIRECTED PRN PFSH Active Problems Active Problems: Problem Status Onset Code Stiffness of left shoulder joint M25.612 Traumatic tear of left rotator cuff ~07/2022 S46.012A Type 2 diabetes mellitus with diabetic neuropathy E11.40 Carpal tunnel syndrome of left wrist G56.02 Essential hypertension I10 Hyperlipidemia Gastroesophageal reflux disease with esophagitis K21.0 Dysphagia R13.10 Mild persistent asthma J45.30 Primary osteoarthritis of left knee M17.12 Diplopia H53.2 Obesity E66.9 Sigmoid diverticulosis K57.30 Surgical History Surgical History S/P left rotator cuff repair (10/29/22) History of medial meniscus repair of left knee (04/02/21) Partial medial & lateral meniscectomy, chondroplasty History of carpal tunnel surgery of right wrist S/P left knee arthroscopy (09/02/09) With chondroplasty patella and open lateral retinacular release S/P trigger finger release (07/04/17) Of Right middle finger; also had right ring finger done in 2009 History of esophagogastroduodenoscopy (EGD) (12/29/16) And in 2015 S/P colonoscopy (09/01/12) S/P appendectomy Tobacco Smoking/Tobacco Use Status: Former Tobacco Use Smokeless tobacco user: other Passive smoking exposure: Yes Second hand exposure: No Alcohol Alcohol Intake: current Alcohol intake frequency: holidays/special occasions only Substance Use Substance use: Never Substance use type: does not use Vital Signs and Lab Results Vital Signs Most Recent Vital Signs in EMR: Most Recent Vital Signs Temp Pulse Resp BP Pulse Ox 36.6 C 60 18 147/92 H 97 03/10/23 11:10 03/10/23 11:10 03/10/23 11:10 03/10/23 11:10 03/10/23 11:10 Lab Results Blood Type / Crossmatch: No Data to Display Complete Blood Count: White Blood Count 7.74 10^3/uL (4.4-10.8) 02/23/23 10:24 Red Blood Count 4.93 10^6/uL (4.36-5.78) 02/23/23 10:24 Hemoglobin 14.6 g/dL (13.5-17.5) 02/23/23 10:24 Hematocrit 42.5 % (40.0-50.0) 02/23/23 10:24 Platelet Count 280 10^3/uL (130-400) 02/23/23 10:24 Complete Metabolic Panel: C-Reactive Protein 0.11 mg/dL (0.0-0.3) 02/23/23 10:24 Liver Function Panel: No Data to Display Coagulation Panel: No Data to Display Cardiac Panel: No Data to Display Arterial Blood Gas: No Data to Display Venous Blood Gas: No Data to Display Pancreas Panel: No Data to Display Thyroid Panel: No Data to Display Infectious Disease: No Data to Display Blood Cultures: No Data to Display Toxicology Panel: No Data to Display Imaging and Studies Imaging and Studies Study information below may be from another EMR and interpreted by another provider. Please see original notes in EMR for more complete details. EKG Summary: 08/18: sinus. Anesthesia Assessment and Plan Anesthesia History Personal History: No History of Anesthesia Complications Family History: No Family History of Anesthesia Complications Exercise Tolerance Exercise Tolerance: Metabolic Equivalents>4 Cardiac & Pulmonary Exam Cardiac Exam: Normal S1/S2 Heart Sounds Pulmonary Exam: Clear Bilateral Breath Sounds Implantable Cardiac Device Does patient have a Pacemaker or an ICD?: No Airway Exam Known Difficult Airway: No Mallampati Class: 2 Mouth Opening: Normal (> 3cm) Thyromental Distance: Less than 3 cm Neck Range of Motion: Full ROM Neck Circumference: Normal Teeth Condition: Generalized Poor Dentition ASA Classification ASA Score: ASA 2 Emergency Case?: No NPO Status NPO Status: NPO Clears >2 hours, Solids >8 hours Anesthesia Plan Resuscitation Status: Full Code Anesthesia Technique: General Anesthesia Airway Planned: Natural Airway Pain Management: Surgeon and patient request nerve block Monitors Used: Standard Monitors Preoperative Comments:: 62 yo male for shoulder manip. Sig PMHx: HTN (chlorthalidone), asthma (albut), GERD (omep, sucralfate, famotidine, states that with theses he is well controlled, has not laid flat in a while to state if he can lay down), DM2 (metformin, glipizide) Previous Anes: - shoulder, glide 3 grade 1, easy mask, ISB, no issue. midaz, 10 exp/10 0.5% bup for block.
[2023-03-10] MEDS: Lactated Ringers 1,000 ML 30 ML IV (11:45)
--- NOTE | 2023-03-10 13:05 | W.ANESPOSTOP ---
Postoperative Evaluation Date, Time and Location Date Performed: 03/10/23 Time Performed: 12:35 Patient Location: Day Surgery Unit Vital Signs Most Recent Imported Vital Signs: Most Recent Vital Signs Temp Pulse Resp BP Pulse Ox 36.4 C L 65 16 119/61 94 03/10/23 12:45 03/10/23 12:45 03/10/23 12:45 03/10/23 12:45 03/10/23 12:45 Pain Score Most Recent Pain Score: Most Recent Pain Score Pain Level 8 03/10/23 12:02 Assessment Mental Status: Awake (Alert & Oriented to Patient Baseline) Airway and Respiratory Function: Patent airway with normal (patient baseline) respiratory exam Cardiovascular Function: Hemodynamically Stable Hydration Status: Adequately Hydrated Nausea & Vomiting: No Nausea or Vomiting Pain: Pt. Denies Any Pain Peripheral Nerve Block: Regional nerve block not resolved at time of post operative discharge
[2023-03-10] MEDS: oxyCODONE 5 MG TAB PO (13:10)
--- NOTE | 2023-03-10 13:38 | W.ANESNERVE ---
Nerve Block Single Injection Procedure Date and Time Date Performed: 03/10/23 Procedure Start: 12:04 Location Where Procedure Performed Procedure Location: Day Surgery Unit Reason Performed: Postoperative Analgesia Requesting Provider: Felipe Corey Timeout Performed Timeout Performed: Yes Monitoring Used ECG, Blood Pressure and SpO2 Sterility Sterility: Hand Hygiene, Surgical Cap, Surgical Mask, Sterile Gloves and Chlorhexidine Sedation Given During Procedure Sedation Given (Indicate Dose Given): Versed IV Dose:: 2 mg Patient Mental Status Patient Mental Status: Sedate with meaningful communication Nerve Block 1st Nerve Block: Laterality: Left Block Type: Interscalene Ultrasound Image Saved?: Yes Needle / Catheter Used: 100mm SonoPlex II Local Anesthetic Bolus (Indicate Dose Given): Lidocaine used for local infiltration of skin, Injected in 3-5ml increments after negative blood aspiration, Bupivacaine 0.5% Dose:: 10 ml and Exparel Dose:: 10 ml Additives (Indicate Dose Given): Normal Saline Ultrasound: Sterile probe cover and gel used Nerve Stimulator: Supplement to Ultrasound use and No twitch or parasthesia noted < 0.5 mA Paresthesia: None Procedure Tolerated: No Complications and Patient tolerated well Procedure Outcome: Successful Performed By: Anirudh Scott
== END 2023-03-10 11:05 | disposition home or self-care (01) ==
PROVIDERS: PCP Nurse Practitioner Family; Visit Provider Student in an Organized Health Care Education/Training Program
PROC: (CPT 23700; principal; 2023-03-10 14:30)
DX: M25.612 Stiffness of left shoulder, not elsewhere classified (principal); I10 Essential (primary) hypertension; K21.9 Gastro-esophageal reflux disease without esophagitis; E11.9 Type 2 diabetes mellitus without complications; Z79.84 Long term (current) use of oral hypoglycemic drugs
CPT/HCPCS: 23700; 76942; J1100; J1885; J2001; J2250; J2405

== ENCOUNTER 2023-06-09 09:25 | Emergency (ER) | payer OTHER, SELFPAY ==
[2023-06-09 09:39] VITALS: BP 124/83; PULSE 69; RESP 15; O2SAT 95
--- NOTE | 2023-06-09 09:53 | W.ED.GENAD ---
HPI General Mode of arrival: ambulatory. Date/Time Provider Initiated Documentation: 06/09/23 09:26. Limitations to Documentation: no limitations. Information obtained by: patient. History of Present Illness 62 year old M presents to the emergency department with the chief complaint of left index finger injury, described as moderate, and it has been constant. No relieving factors improve symptom(s), No exacerbating factors reported . Patient notes no other symptoms.. Patient did receive the following treatments prior to arrival, none Related Data Home Medications Medication Instructions Recorded Confirmed aspirin 81 mg tablet,delayed 81 mg PO DAILY 07/04/12 06/09/23 release (Aspir-) famotidine 20 mg tablet 20 mg PO BID #180 tabs 06/24/22 06/09/23 fluticasone propionate 110 1 puff inhalation BID #12 grams 06/24/22 06/09/23 mcg/actuation HFA aerosol inhaler (Flovent HFA) glipizide 5 mg tablet, extended 5 mg PO DAILY #90 tabs 06/24/22 06/09/23 release 24 hr metformin 500 mg tablet 500 mg PO DAILY #90 tabs 06/24/22 06/09/23 simvastatin 40 mg tablet 40 mg PO HS #90 tabs 06/24/22 06/09/23 sucralfate 1 gram tablet 1 g PO QID PRN GERD #360 tabs 06/24/22 06/09/23 albuterol sulfate 90 mcg/actuation 2 puff inhalation QID PRN 08/17/22 06/09/23 aerosol inhaler shortness of breath or wheezing #18 grams lancets 28 gauge #200 ea 09/30/22 06/09/23 blood sugar diagnostic (FreeStyle #200 ea 10/24/22 06/09/23 Test strips) blood-glucose meter (FreeStyle #1 ea 10/24/22 06/09/23 [place] kit) chlorthalidone 25 mg tablet 25 mg PO DAILY #90 tabs 12/23/22 06/09/23 potassium chloride 20 mEq 20 meq PO DAILY #90 tabs 12/23/22 06/09/23 tablet,extended release diphenhydramine 25 2 tab PO QHS PRN left shoulder 01/14/23 06/09/23 mg-acetaminophen 500 mg tablet pain #90 tabs (Tylenol PM Extra Strength) omeprazole 40 mg capsule,delayed 40 mg PO BID #180 caps 03/17/23 06/09/23 release Previous Rx's Medication Instructions Recorded famotidine 20 mg tablet 20 mg PO BID #180 tabs 06/24/22 fluticasone propionate 110 1 puff inhalation BID #12 grams 06/24/22 mcg/actuation HFA aerosol inhaler (Flovent HFA) glipizide 5 mg tablet, extended 5 mg PO DAILY #90 tabs 06/24/22 release 24 hr metformin 500 mg tablet 500 mg PO DAILY #90 tabs 06/24/22 simvastatin 40 mg tablet 40 mg PO HS #90 tabs 06/24/22 sucralfate 1 gram tablet 1 g PO QID PRN GERD #360 tabs 06/24/22 albuterol sulfate 90 mcg/actuation 2 puff inhalation QID PRN 08/17/22 aerosol inhaler shortness of breath or wheezing #18 grams lancets 28 gauge #200 ea 09/30/22 blood sugar diagnostic (FreeStyle #200 ea 10/24/22 Test strips) blood-glucose meter (FreeStyle #1 ea 10/24/22 [place] kit) chlorthalidone 25 mg tablet 25 mg PO DAILY #90 tabs 12/23/22 potassium chloride 20 mEq 20 meq PO DAILY #90 tabs 12/23/22 tablet,extended release diphenhydramine 25 2 tab PO QHS PRN left shoulder 01/14/23 mg-acetaminophen 500 mg tablet pain #90 tabs (Tylenol PM Extra Strength) omeprazole 40 mg capsule,delayed 40 mg PO BID #180 caps 03/17/23 release Allergies Allergy/AdvReac Type Severity Reaction Status Date / Time No Known Drug Allergies Allergy Verified 06/07/23 09:03 General Stated Complaint: Laceration BABATUNDE: 4 Review of Systems All systems reviewed & are unremarkable except as noted in HPI and below Constitutional Constitutional: Denies chills, Denies fever(s) and Denies weakness Cardiovascular Cardiovascular: Denies chest pain and Denies dyspnea Respiratory Respiratory: Denies cough and Denies dyspnea Gastrointestinal Gastrointestinal: Denies abdominal pain, Denies nausea and Denies vomiting Musculoskeletal Musculoskeletal: Denies joint swelling Neurologic Neurologic: Denies weakness Exam Const General: no acute distress Orientation: alert HENMT Head: normal to inspection Ears: external ears normal General nose exam: external nose normal Mouth: moist mucous membranes Eyes General: appearance normal, both eyes and all related structures Neck Neck: normal visual inspection Resp Effort & Inspection: normal respiratory effort and able to speak in complete sentences Cardio Rate: regular rate Skin General skin exam: no rashes or lesions noted and no erythema Neuro General: patient alert and patient oriented x3 Extrem General: full ROM and capillary refill normal Psych Mental Status: mental status grossly normal Course Vital Signs Vital signs: Vital Signs Pulse 69 06/09/23 09:39 Respiratory Rate 15 06/09/23 09:39 Blood Pressure 124/83 06/09/23 09:39 Pulse Oximetry 95 06/09/23 09:39 Pulse 69 06/09/23 09:39 Respiratory Rate 15 06/09/23 09:39 Respiratory Effort Normal 06/09/23 09:42 Blood Pressure 124/83 06/09/23 09:39 Blood Pressure Position Sitting 06/09/23 09:39 Pulse Oximetry 95 06/09/23 09:39 Oxygen Delivery Method Room Air 06/09/23 09:39 Oxygen Flow Rate 0 06/09/23 09:39 Pain Level 4 06/09/23 09:45 Medical Decision Making 62 yo male comes in with a left index finger wound sustained 2 days ago. He states he was using a drill and was holding a screw in his left hand which slipped and the drill went into his left distal index finger, denies any falls or other injuries. 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 He denies any pain drainage or redness around the wound. He has a 1 cm circular wound with some granulation tissue on the outer edges of the distal left index finger on the palmar surface, no discharge no erythema full range of motion of the finger no tenderness. Advise given how far out is from the injury that sutures are not indicated. Will have this heal by secondary intention, no indications for antibiotics currently. Return precautions given in terms of developing signs of infection such as spreading redness or yellow/white discharge Differential Diagnosis Differential Diagnosis: finger wound, abrasion, laceration Quality:SDOH Health Related Social Needs: No Data to Display PFSH All Active Problems (Updated 06/09/23 @ 09:54 by Jayro Taylor MD) Open wound of left index finger (Acute) Stiffness of left shoulder joint (Acute) Traumatic tear of left rotator cuff (Acute ~07/2022) Type 2 diabetes mellitus with diabetic neuropathy (Chronic) Carpal tunnel syndrome of left wrist (Chronic) Essential hypertension (Chronic) Hyperlipidemia (Chronic) Gastroesophageal reflux disease with esophagitis (Chronic) Dysphagia (Chronic) Mild persistent asthma (Chronic) Primary osteoarthritis of left knee (Chronic) Diplopia (Chronic) Obesity (Chronic) Sigmoid diverticulosis (Chronic) Surgical History S/P left rotator cuff repair (10/29/22) History of medial meniscus repair of left knee (04/02/21) Partial medial & lateral meniscectomy, chondroplasty History of carpal tunnel surgery of right wrist S/P left knee arthroscopy (09/02/09) With chondroplasty patella and open lateral retinacular release S/P trigger finger release (07/04/17) Of Right middle finger; also had right ring finger done in 2009 History of esophagogastroduodenoscopy (EGD) (12/29/16) And in 2015 S/P colonoscopy (09/01/12) S/P appendectomy Family History Mother , 70s Breast cancer COPD (chronic obstructive pulmonary disease) Type 2 diabetes mellitus Heart disease Father , 70s Heart disease Myocardial infarction Lung cancer Hypertension Sister Hyperlipidemia Type 2 diabetes mellitus Sister No problems noted. Sister No problems noted. Sister No problems noted. Sister No problems noted. Brother Heart disease Myocardial infarction Type 2 diabetes mellitus Hyperlipidemia Daughter Hyperlipidemia Daughter Depression Maternal Grandfather No problems noted. Maternal Grandmother No problems noted. Paternal Grandfather No problems noted. Paternal Grandmother No problems noted. 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 Pets and animals: Yes Pets and animals: cat(s) Do you think of yourself as: straight/heterosexual Current gender identity: male What is your relationship status?: How often do you talk on the phone with friends or family?: never How often do you get together with friends or relatives?: decline to answer How often do you attend mosque or orthodox services?: decline to answer Do you belong to any clubs or organized social groups?: decline to answer Panel score (0-1 are the most socially isolated patients): 1 What type of physical activity do you participate in: none Duration: decline to answer Frequency: decline to answer Yen/Hinduism: None Special yen needs: No Seatbelt use: never Helmet use: No Drive intox 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 Do you feel safe at home: Yes Do you feel safe in your relationship?: Yes Discharge Plan Disposition Patient Disposition: Home Condition: Stable Discharge Details Clinical Impression: Open wound of left index finger Primary Care Provider: Zuleika Vergara ED Provider: Jayro Taylor [place] Meds and New Rx's Prescriptions: Continued famotidine 20 mg tablet 20 mg PO BID Qty: 180 3RF fluticasone propionate [Flovent HFA] 110 mcg/actuation HFA aerosol inhaler 1 puff IH BID Qty: 12 4RF glipizide 5 mg tablet extended release 24hr 5 mg PO DAILY Qty: 90 3RF Rx Instructions: Take 1 tablet once a day in the morning metformin 500 mg tablet 500 mg PO DAILY Qty: 90 3RF Rx Instructions: Take 1 tablet daily simvastatin 40 mg tablet 40 mg PO HS Qty: 90 3RF Rx Instructions: Take 1 tablet at bedtime sucralfate 1 gram tablet 1 g PO QID PRN (Reason: GERD) Qty: 360 3RF chlorthalidone 25 mg tablet 25 mg PO DAILY Qty: 90 3RF Rx Instructions: Take 1 tablet once a day potassium chloride 20 mEq tablet extended release 20 meq PO DAILY Qty: 90 3RF albuterol sulfate 90 mcg/actuation HFA aerosol inhaler 2 puff IH QID PRN (Reason: shortness of breath or wheezing) Qty: 18 4RF aspirin [Aspir-81] 81 MG tablet,delayed release (DR/EC) 81 mg PO DAILY (DME) lancets 28 gauge misc See Rx Instructions .Route Qty: 200 3RF Rx Instructions: Check blood sugar twice a day (DME) blood-glucose meter [FreeStyle [place]] Kit See Rx Instructions .Route Qty: 1 3RF Rx Instructions: Check blood sugar twice a day (DME) FreeStyle Test Strip See Rx Instructions .ROUTE .MEDSUPPLY Qty: 200 4RF Rx Instructions: Check blood sugar twice a day diphenhydramine-acetaminophen [Tylenol PM Extra Strength] 25-500 mg tablet 2 tab PO QHS PRN (Reason: left shoulder pain) Qty: 90 0RF omeprazole 40 mg capsule,delayed release(DR/EC) 40 mg PO BID Qty: 180 3RF Rx Instructions: Take 1 tablet twice a day Discharge Instructions Additional Instructions: it is too far out from the original injury to place sutures if you have spreading redness down the finger or severe worsening of pain return to the emergency department
== END 2023-06-09 10:16 | disposition home or self-care (01) ==
PROVIDERS: Emergency Provider Emergency Medicine; PCP Nurse Practitioner Family
DX: S61.201A Unspecified open wound of left index finger without damage to nail, initial encounter (principal); W29.8XXA Contact with other powered hand tools and household machinery, initial encounter
CPT/HCPCS: 99282; 99283

== ENCOUNTER 2023-06-29 03:12 | Outpatient (CLI) | payer BC, SELFPAY ==
[2023-06-29 13:26] LABS: ALT 31 U/L (16-63); AST 20 U/L (15-37); Albumin 3.7 g/dL (3.4-5.0); Alkaline Phosphatase 95 U/L (46-116); Anion Gap 11.5 mmol/L (3-11); BUN 15 mg/dL (7-18); Bilirubin, Total 0.7 mg/dL (0.2-1.0); CO2 27.5 mmol/L (21.0-32.0); CREATININE 1.1 mg/dL (0.70-1.30); Calcium 9.1 mg/dL (8.5-10.1); Calculated LDL 75 mg/dL (<100); Chloride 100 mmol/L (98-107); Cholesterol 163 mg/dL (<200); Estimated GFR 75.43 (mL/min/1.73m2); Glucose 195 mg/dL (74-106); HDL Cholesterol 59 mg/dL (40-60); Sodium 139 mmol/L (136-145); Total Protein 7.3 g/dL (6.4-8.2); Triglyceride 147 mg/dL (<150)
[2023-06-29 22:22] LABS: PSA, Screening 2.3 ng/mL (<=4.5)
== END 2023-06-29 03:13 | disposition home or self-care (01) ==
LOC: LBO 03:14
PROVIDERS: PCP Nurse Practitioner Family; Visit Provider Nurse Practitioner Family
DX: Z00.00 Encounter for general adult medical examination without abnormal findings (principal); Z13.220 Encounter for screening for lipoid disorders; Z12.5 Encounter for screening for malignant neoplasm of prostate; Z13.228 Encounter for screening for other metabolic disorders
CPT/HCPCS: 36415; 80053; 80061; 84153

== ENCOUNTER 2023-07-14 03:00 | Outpatient (CLI) | payer BC, SELFPAY ==
[2023-07-14 12:36] LABS: Anion Gap 7.8 mmol/L (3-11); BUN 12 mg/dL (7-18); CO2 31.2 mmol/L (21.0-32.0); CREATININE 1.1 mg/dL (0.70-1.30); Chloride 101 mmol/L (98-107); Estimated GFR 75.43 (mL/min/1.73m2); Glucose 157 mg/dL (74-106); Potassium 3.5 mmol/L (3.5-5.1); Sodium 140 mmol/L (136-145)
== END 2023-07-14 03:01 | disposition home or self-care (01) ==
LOC: LOS 03:01
PROVIDERS: PCP Nurse Practitioner Family; Visit Provider Nurse Practitioner Family
DX: E87.6 Hypokalemia (principal)
CPT/HCPCS: 36415; 80048

== ENCOUNTER 2023-07-24 10:58 | Emergency (ER) | payer BC, SELFPAY ==
--- NOTE | 2023-07-24 11:00 | DI.RAD_ITS ---
Exam(s) XR KNEE RT 3V AP,LAT,PATRICIO EXAM: XR KNEE RT 3V AP,LAT,PATRICIO CLINICAL HISTORY: knee pain. TECHNIQUE: 2D digital imaging was performed. Three views. COMPARISON: No exams were available for comparison FINDINGS: BONES: No acute fracture is present. No bony destructive lesion is seen. JOINTS: The knee is normally aligned. A small joint effusion is seen. SOFT TISSUE: Vascular calcifications. IMPRESSION: Small joint effusion. DATA REPOSITORY: RADIATION DOSE DELIVERED:
[2023-07-24 11:01] VITALS: BP 149/88; PULSE 61; RESP 18; TEMP 36.6; O2SAT 95
--- NOTE | 2023-07-24 11:30 | DI.VRAD_ITS ---
PROCEDURE INFORMATION: Exam: XR Right Knee Exam date and time: 07/24/2023 11:17 AM Age: 62 years old Clinical indication: Other: Knee pain TECHNIQUE: Imaging protocol: Radiologic exam of the right knee. Views: 3 views. COMPARISON: MR LOWER JOINT RT WO 06/22/2019 9:05 AM FINDINGS: Bones/joints: There is no evidence of acute fracture.There is no evidence of malalignment or dislocation. Mild suprapatellar joint effusion. . Mild degenerative changes in the patellofemoral joint Soft tissues: Normal. IMPRESSION: 1. There is no evidence of acute fracture.There is no evidence of malalignment or dislocation. 2. Mild suprapatellar joint effusion. Dictated and Authenticated by: Juliann Harris MD. Ordering:DILMA Westbrook MD
[2023-07-24 11:38] VITALS: PULSE 56; RESP 16; TEMP 36.5; O2SAT 98
--- NOTE | 2023-07-24 16:58 | W.ED.GENAD ---
Discharge Plan Disposition Patient Disposition: Home Discharge Details Clinical Impression: Injury, knee Primary Care Provider: Zuleika Vergara ED Provider: Anton Larson Home Meds and New Rx's Prescriptions: No Action famotidine 20 mg tablet 20 mg PO BID Qty: 180 3RF fluticasone propionate [Flovent HFA] 110 mcg/actuation HFA aerosol inhaler 1 puff IH BID Qty: 12 4RF metformin 500 mg tablet 500 mg PO DAILY Qty: 90 3RF Rx Instructions: Take 1 tablet daily simvastatin 40 mg tablet 40 mg PO HS Qty: 90 3RF Rx Instructions: Take 1 tablet at bedtime sucralfate 1 gram tablet 1 g PO QID PRN (Reason: GERD) Qty: 360 3RF chlorthalidone 25 mg tablet 25 mg PO DAILY Qty: 90 3RF Rx Instructions: Take 1 tablet once a day potassium chloride 20 mEq tablet extended release 20 meq PO DAILY Qty: 90 3RF albuterol sulfate 90 mcg/actuation HFA aerosol inhaler 2 puff IH QID PRN (Reason: shortness of breath or wheezing) Qty: 18 4RF triamcinolone acetonide 0.1 % cream 1 applic topical DAILY PRN (Reason: rash) Qty: 80 0RF aspirin [Aspir-81] 81 MG tablet,delayed release (DR/EC) 81 mg PO DAILY (DME) lancets 28 gauge misc See Rx Instructions .Route Qty: 200 3RF Rx Instructions: Check blood sugar twice a day (DME) blood-glucose meter [FreeStyle [place]] Kit See Rx Instructions .Route Qty: 1 3RF Rx Instructions: Check blood sugar twice a day (DME) FreeStyle Test Strip See Rx Instructions .ROUTE .MEDSUPPLY Qty: 200 4RF Rx Instructions: Check blood sugar twice a day diphenhydramine-acetaminophen [Tylenol PM Extra Strength] 25-500 mg tablet 2 tab PO QHS PRN (Reason: left shoulder pain) Qty: 90 0RF omeprazole 40 mg capsule,delayed release(DR/EC) 40 mg PO BID Qty: 180 3RF Rx Instructions: Take 1 tablet twice a day Discharge Instructions Instructions: Swollen Knee Joint (ED) Additional Instructions: Wear knee immobilizer for comfort and stability. Use crutches for walking. Weightbearing as tolerated. Please follow-up with orthopedics, a referral has been placed. In outpatient MRI has been ordered, they will contact you to schedule. Referrals: Saqib Mills MD [ [facility] STAFF PHYSICIAN] - Discharge Data Discharge Date/Time-TO BE ENTERED AT DEPARTURE: 07/24/23 11:44 HPI General Date/Time Provider Initiated Documentation: 07/24/23 11:03. Limitations to Documentation: no limitations. Information obtained by: patient. HPI Narrative: 62-year-old gentleman with past medical history of diabetes, hypertension presents for evaluation of acute onset right knee pain. Patient was going up and down the stairs when he heard a pop in his right knee. He did not fall. He reported immediate onset of pain. He has been walking with crutches that he had from a prior injury. He reports some swelling noted in his knee. He has been having some difficulty with putting weight on the leg. Has been taking Motrin and Tylenol for pain. Related Data Home Medications Medication Instructions Recorded Confirmed aspirin 81 mg tablet,delayed 81 mg PO DAILY 07/04/12 07/24/23 release (Aspir-) famotidine 20 mg tablet 20 mg PO BID #180 tabs 06/24/22 07/24/23 fluticasone propionate 110 1 puff inhalation BID #12 grams 06/24/22 07/24/23 mcg/actuation HFA aerosol inhaler (Flovent HFA) metformin 500 mg tablet 500 mg PO DAILY #90 tabs 06/24/22 07/24/23 simvastatin 40 mg tablet 40 mg PO HS #90 tabs 06/24/22 07/24/23 sucralfate 1 gram tablet 1 g PO QID PRN GERD #360 tabs 06/24/22 07/24/23 albuterol sulfate 90 mcg/actuation 2 puff inhalation QID PRN 08/17/22 07/24/23 aerosol inhaler shortness of breath or wheezing #18 grams lancets 28 gauge #200 ea 09/30/22 07/24/23 blood sugar diagnostic (FreeStyle #200 ea 10/24/22 07/24/23 Test strips) blood-glucose meter (FreeStyle #1 ea 10/24/22 07/24/23 [place] kit) chlorthalidone 25 mg tablet 25 mg PO DAILY #90 tabs 12/23/22 07/24/23 potassium chloride 20 mEq 20 meq PO DAILY #90 tabs 12/23/22 07/24/23 tablet,extended release diphenhydramine 25 2 tab PO QHS PRN left shoulder 01/14/23 07/24/23 mg-acetaminophen 500 mg tablet pain #90 tabs (Tylenol PM Extra Strength) omeprazole 40 mg capsule,delayed 40 mg PO BID #180 caps 03/17/23 07/24/23 release triamcinolone acetonide 0.1 % 1 applic topical DAILY PRN rash 06/27/23 07/24/23 topical cream #80 grams Previous Rx's Medication Instructions Recorded famotidine 20 mg tablet 20 mg PO BID #180 tabs 06/24/22 fluticasone propionate 110 1 puff inhalation BID #12 grams 06/24/22 mcg/actuation HFA aerosol inhaler (Flovent HFA) metformin 500 mg tablet 500 mg PO DAILY #90 tabs 06/24/22 simvastatin 40 mg tablet 40 mg PO HS #90 tabs 06/24/22 sucralfate 1 gram tablet 1 g PO QID PRN GERD #360 tabs 06/24/22 albuterol sulfate 90 mcg/actuation 2 puff inhalation QID PRN 08/17/22 aerosol inhaler shortness of breath or wheezing #18 grams lancets 28 gauge #200 ea 09/30/22 blood sugar diagnostic (FreeStyle #200 ea 10/24/22 Test strips) blood-glucose meter (FreeStyle #1 ea 10/24/22 [place] kit) chlorthalidone 25 mg tablet 25 mg PO DAILY #90 tabs 12/23/22 potassium chloride 20 mEq 20 meq PO DAILY #90 tabs 12/23/22 tablet,extended release diphenhydramine 25 2 tab PO QHS PRN left shoulder 01/14/23 mg-acetaminophen 500 mg tablet pain #90 tabs (Tylenol PM Extra Strength) omeprazole 40 mg capsule,delayed 40 mg PO BID #180 caps 03/17/23 release triamcinolone acetonide 0.1 % 1 applic topical DAILY PRN rash 06/27/23 topical cream #80 grams Allergies Allergy/AdvReac Type Severity Reaction Status Date / Time No Known Allergies Allergy Unverified 07/24/23 11:03 General Stated Complaint: Orthopedic BABATUNDE: 4 Exam Narrative Exam Narrative: Review of Systems: All systems reviewed & are unremarkable except as noted in HPI and below Well-developed, no acute distress NCAT PERRL, normal conjunctiva RRR Unlabored respiratory effort Nondistended abdomen Right knee with effusion, no instability, no obvious deformity No rashes or lesions. no focal neurologic deficits Appropriate mood and affect Course Vital Signs Vital signs: Vital Signs Temperature 36.6 C 07/24/23 11:01 Pulse 61 07/24/23 11:01 Respiratory Rate 18 07/24/23 11:01 Blood Pressure 149/88 H 07/24/23 11:01 Pulse Oximetry 95 07/24/23 11:01 Temperature 36.5 C 07/24/23 11:38 Temperature Source Skin 07/24/23 11:01 Pulse 56 L 07/24/23 11:38 Respiratory Rate 16 07/24/23 11:38 Respiratory Effort Normal, Non-Labored 07/24/23 11:38 Blood Pressure 149/88 H 07/24/23 11:01 Blood Pressure Position Sitting 07/24/23 11:01 Pulse Oximetry 98 07/24/23 11:38 Oxygen Delivery Method Room Air 07/24/23 11:01 Oxygen Flow Rate 0 07/24/23 11:01 Pain Level 9 07/24/23 11:40 Medical Decision Making Emergent evaluation of acute atraumatic right knee pain. Small effusion noted on examination. X-ray imaging obtained, no acute fracture or bony etiology. Suspect internal derangement. Patient has his own crutches, he was provided with a knee immobilizer and instructed to weight-bear as tolerated. An outpatient MRI of his knee has been ordered and he has been referred to orthopedics for further follow-up. Motrin Tylenol as needed for pain. Return precautions advised. Quality:SDOH Health Related Social Needs: No Data to Display PFSH All Active Problems Injury, knee (Acute) Type 2 diabetes mellitus with diabetic neuropathy (Chronic) Essential hypertension (Chronic) Hyperlipidemia (Chronic) Gastroesophageal reflux disease with esophagitis (Chronic) Dysphagia (Chronic) Esophageal achalasia (Chronic) [place] [facility]. pt refusing to go to . Mild persistent asthma (Chronic) Primary osteoarthritis of left knee (Chronic) Carpal tunnel syndrome of left wrist (Chronic) Diplopia (Chronic) Obesity (Chronic) Sigmoid diverticulosis (Chronic) Surgical History S/P left rotator cuff repair (10/29/22) Manipulation under anesthesia 03/2023 History of medial meniscus repair of left knee (04/02/21) Partial medial & lateral meniscectomy, chondroplasty History of carpal tunnel surgery of right wrist S/P left knee arthroscopy (09/02/09) With chondroplasty patella and open lateral retinacular release S/P trigger finger release (07/04/17) Of Right middle finger; also had right ring finger done in 2009 History of esophagogastroduodenoscopy (EGD) (12/29/16) And in 2015 S/P colonoscopy (09/01/12) S/P appendectomy Family History Mother , 70s Breast cancer COPD (chronic obstructive pulmonary disease) Type 2 diabetes mellitus Heart disease Father , 70s Heart disease Myocardial infarction Lung cancer Hypertension Sister Hyperlipidemia Type 2 diabetes mellitus Sister No problems noted. Sister No problems noted. Sister No problems noted. Sister No problems noted. Brother Heart disease Myocardial infarction Type 2 diabetes mellitus Hyperlipidemia Daughter Hyperlipidemia Daughter Depression Maternal Grandfather No problems noted. Maternal Grandmother No problems noted. Paternal Grandfather No problems noted. Paternal Grandmother No problems noted. 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 Pets and animals: Yes Pets and animals: cat(s) Do you think of yourself as: straight/heterosexual Current gender identity: male What is your relationship status?: How often do you talk on the phone with friends or family?: never How often do you get together with friends or relatives?: decline to answer How often do you attend spiritism or yazidism services?: decline to answer Do you belong to any clubs or organized social groups?: decline to answer Panel score (0-1 are the most socially isolated patients): 1 What type of physical activity do you participate in: none Duration: decline to answer Frequency: decline to answer Yen/Adventism: None Special yen needs: No Seatbelt use: never Helmet use: No Drive intox or ride w/intox 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
--- NOTE | 2023-07-26 11:08 | NUR.NOTE ---
Nursing Note:Patient needed a work note
== END 2023-07-24 11:44 | disposition home or self-care (01) ==
PROVIDERS: Emergency Provider Emergency Medicine; PCP Nurse Practitioner Family
DX: M25.561 Pain in right knee (principal); S89.91XA Unspecified injury of right lower leg, initial encounter; Y93.01 Activity, walking, marching and hiking; E11.9 Type 2 diabetes mellitus without complications; I10 Essential (primary) hypertension
CPT/HCPCS: 73562; 99283

== ENCOUNTER → 2023-07-29 01:06 | Outpatient (CLI) | payer BC, SELFPAY ==
--- NOTE | 2023-07-29 15:00 | DI.MRI_ITS ---
Exam(s) MR LOWER JOINT RT WO EXAM: MR LOWER JOINT RT WO CLINICAL HISTORY: right knee injury,S99.90XA. TECHNIQUE: Multiplanar multisequence MRI was performed. COMPARISON: MR MR LOWER JOINT LT WO from 03/05/2021 CR,XR XR KNEE RT 3V AP,LAT,PATRICIO from 07/24/2023 FINDINGS: BONES: Mild edema in the posterior medial tibial plateau near the tibial spines. JOINTS: A small joint effusion is present. Articular cartilage: Patellofemoral joint: Cartilage is thinned down to bone at the apex. Small jesus unt of abnormal high signal and underlying subcortical bone. Medial femoral tibial joint: Articular cartilage is unremarkable. Lateral femoral tibial joint: Articular cartilage is unremarkable. TENDONS: Extensor mechanism: Unremarkable. Medial retinaculum: Unremarkable. Lateral retinaculum: Unremarkable. Popliteus: Unremarkable. Semimembranosus: Edema and thickening distally, consistent with tendinosis. The remaining medial ten dons are intact. MUSCLES: Unremarkable. MENISCI: The medial meniscus probable radial tear at the posterior root. Some edema in body and posterior hor n but no discrete tear. The lateral meniscus is unremarkable. SOFT TISSUES: Mild anterior edema. Small cysts noted posterior joint space, between PCL and joint ca psule.. LIGAMENTS: Anterior Cruciate: Unremarkable. Posterior Cruciate: Unremarkable. Medial Collateral:Unremarkable. Lateral Collateral: Unremarkable. IMPRESSION: Semimembranosus tendinosis. Radial tear posterior root of the medial meniscus. Small bone contusion of the medial tibial plateau. 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 DATA REPOSITORY:
== END ==
PROVIDERS: PCP Nurse Practitioner Family; Visit Provider Student in an Organized Health Care Education/Training Program
DX: S89.91XA Unspecified injury of right lower leg, initial encounter (principal)
CPT/HCPCS: 73721

== ENCOUNTER 2023-09-07 05:32 | Outpatient (CLI) | payer BC, SELFPAY ==
[2023-09-07 12:38] LABS: TSH (W/Ref FT4) 4.88 uIU/mL (0.36-3.74)
[2023-09-07 13:02] LABS: FREE T4 1.03 ng/dL (0.76-1.46)
[2023-09-08 09:28] LABS: IgA 260 mg/dL (85-499); IgG 600 mg/dL (610-1616)
[2023-09-08 10:10] LABS: Tissue Transglutaminase IgA <4.0 CU (<20.0)
== END 2023-09-07 05:33 | disposition home or self-care (01) ==
LOC: LOS 05:32
PROVIDERS: PCP Nurse Practitioner Family; Visit Provider Internal Medicine Gastroenterology
DX: K22.0 Achalasia of cardia (principal); K59.09 Other constipation
CPT/HCPCS: 36415; 82784; 84439; 84443

== ENCOUNTER 2023-11-17 08:18 | Outpatient (CLI) | payer BC, SELFPAY ==
[2023-11-17 12:26] LABS: Hemoglobin A1C 7.3 % (<5.7)
[2023-11-17 12:32] LABS: ALT 27 U/L (16-63); AST 20 U/L (15-37); Alkaline Phosphatase 88 U/L (46-116); Anion Gap 6.2 mmol/L (3-11); BUN 15 mg/dL (7-18); Bilirubin, Total 1.08 mg/dL (0.2-1.0); CO2 31.8 mmol/L (21.0-32.0); CREATININE 1.1 mg/dL (0.70-1.30); Calcium 9.4 mg/dL (8.5-10.1); Chloride 103 mmol/L (98-107); Estimated GFR 74.96 (mL/min/1.73m2); Glucose 138 mg/dL (74-106); Potassium 3.5 mmol/L (3.5-5.1); Sodium 141 mmol/L (136-145); TSH (W/Ref FT4) 1.14 uIU/mL (0.36-3.74); Total Protein 7.4 g/dL (6.4-8.2)
[2023-11-17 19:03] LABS: Thyroglobulin Antibody <15 U/mL (<=60); Thyroperoxidase Antibody 38 U/mL (<=60)
[2023-11-18 13:19] LABS: HBs Antibody, Quant 71.6 mIU/mL (See Note); Hep B Surface Ab Positive (See Note); Hepatitis B Core Antibody Negative (Negative); Hepatitis B Surface Antigen Negative (Negative)
== END 2023-11-17 08:19 | disposition home or self-care (01) ==
LOC: LOS 08:19
PROVIDERS: PCP Nurse Practitioner Family; Referring Provider Nurse Practitioner Family; Visit Provider Nurse Practitioner Family
DX: R79.89 Other specified abnormal findings of blood chemistry (principal); E11.40 Type 2 diabetes mellitus with diabetic neuropathy, unspecified; K22.0 Achalasia of cardia; Z11.59 Encounter for screening for other viral diseases
CPT/HCPCS: 36415; 80053; 86376; 86704; 86706; 87340; 83036; 84443

== ENCOUNTER 2023-11-17 09:24 | Outpatient (REF) | payer BC, SELFPAY ==
[2023-11-17 12:43] LABS: COMMENT (LAB VIEW ONLY) 104.69 mg/dL; Microalb ug/mg Crea 5.6 ug/mg Cr
== END 2023-11-17 09:25 | disposition home or self-care (01) ==
LOC: LBN 09:24
PROVIDERS: PCP Nurse Practitioner Family; Visit Provider Nurse Practitioner Family
DX: E11.9 Type 2 diabetes mellitus without complications (principal)
CPT/HCPCS: 82043; 82570

== ENCOUNTER 2024-05-17 08:30 | Day surgery (SDC) | payer BC, SELFPAY ==
[2024-05-17] VITALS (36 sets, daily range): BP systolic 129–173; BP diastolic 71–97; PULSE 46–68; RESP 10–21; TEMP 36.2–36.6; O2SAT 92–99; BMI 28.7
--- NOTE | 2024-05-17 07:09 | W.PM.DSUDISC ---
Date of service: 05/17/24 Discharge Plan Disposition Patient Disposition: Home Condition: Stable Discharge Details Attending Provider: Felipe Corey Primary Care Provider: Zuleika Vergara Home Meds and New Rx's Prescriptions: New naproxen 250 mg tablet 250 - 500 mg PO BID PRN (Reason: Moderate pain) Qty: 40 0RF oxycodone 5 mg tablet 5 - 10 mg PO Q4H PRN (Reason: Moderate to severe pain) Qty: 12 0RF Continued fluticasone propionate [Flovent HFA] 110 mcg/actuation HFA aerosol inhaler 1 puff IH BID Qty: 12 4RF albuterol sulfate 90 mcg/actuation HFA aerosol inhaler 2 puff IH QID PRN (Reason: shortness of breath or wheezing) Qty: 18 4RF potassium chloride 20 mEq tablet extended release 20 meq PO BID Qty: 180 3RF chlorthalidone 25 mg tablet 25 mg PO DAILY Qty: 90 3RF Rx Instructions: Take 1 tablet once a day aspirin [Aspir-81] 81 MG tablet,delayed release (DR/EC) 81 mg PO DAILY (DME) lancets 28 gauge misc See Rx Instructions .Route Qty: 200 3RF Rx Instructions: Check blood sugar twice a day (DME) blood-glucose meter [FreeStyle Anton] Kit See Rx Instructions .Route Qty: 1 3RF Rx Instructions: Check blood sugar twice a day (DME) FreeStyle Test Strip See Rx Instructions .ROUTE .MEDSUPPLY Qty: 200 4RF Rx Instructions: Check blood sugar twice a day diphenhydramine-acetaminophen [Tylenol PM Extra Strength] 25-500 mg tablet 2 tab PO QHS PRN (Reason: left shoulder pain) Qty: 90 0RF metformin 500 mg tablet 500 mg PO DAILY Qty: 90 3RF Rx Instructions: Take 1 tablet daily simvastatin 40 mg tablet 40 mg PO HS Qty: 90 3RF Rx Instructions: Take 1 tablet at bedtime triamcinolone acetonide 0.1 % cream 1 applic topical DAILY PRN (Reason: rash) Qty: 80 0RF ondansetron 4 mg tablet,disintegrating 4 mg PO Q8H PRN Rx Instructions: 01/05/24 [facility] – [place] #20 no refils ibuprofen 100 mg/5 mL suspension 400 mg PO Q6H PRN Patient Comments: [facility] – [place] 01/05/24 240ml no refills acetaminophen 650 mg/20.3 mL solution 650 mg PO Q6H PRN Patient Comments: [facility] – [place] 01/05/24 243.6ml no refills Discharge Instructions Additional Instructions: Surgery: Right knee arthroscopy with partial medial & lateral meniscectomy Activity: Weightbearing as tolerated. Advance range of motion as comfort allows. No knee brace or crutches needed as soon as comfortable. Recommend avoiding sports, pivoting, and squatting for 6-8 weeks. A physical therapy prescription will be sent electronically to start in about 3 weeks. Prescriptions: Resume home Aspirin 81 mg take 1 daily tomorrow Naproxen 250 mg take 1-2 every 12 hours with a meal as needed for moderate pain Oxycodone 5 mg take 1-2 every 4-6 hours as needed for severe pain You may use [id number] Tylenol (acetaminophen) as needed for mild pain. These pain medications may be taken all at once or in different combinations as needed. Also, recommend Colace (docusate) as a stool softener as surgery and pain medicine cause constipation. You may try [id number] diphenhydramine (Benadryl) 25-50 mg nightly as a sleep aid Dressings: Leave dressing in place for 3 days. May then remove and leave open to air or cover incisions with Band-Aids. Leave the sticky Steri-Strips in place until they fall off or remove them after you shower. May shower after 5 days. Follow-up: 10-[address] Corey You may take off the leg compression stockings this evening at home. You may also leave them on a few days longer if you have a history of leg swelling or edema. Let us know right away if you develop any redness, drainage, fevers, chest pain, or trouble breathing. Do not drink alcohol or drive for at least 24 hours after anesthesia. Please call the office during business hours with any questions or concerns. Discharge Orders Discharge Orders: Discharge Order (Routine); Ordered 05/17/24 Ordered By: Greg Campos DS: Diagnosis Discharge Diagnosis (1) Acute medial meniscus tear of right knee: Status: Acute (2) Chondromalacia of patella, right: Status: Acute
--- NOTE | 2024-05-17 07:15 | W.PM.OP ---
Operative Note Operative Note PRE-OP DIAGNOSIS: Right knee 1. Medial meniscus root tear POST-OP DIAGNOSIS: same Right knee 1. Partial medial meniscus root tear 2. Posterior horn lateral meniscus tear PROCEDURE: Right knee 1. Partial medial & lateral meniscectomy, CPT #80820 SURGEON: Felipe Corey [employer] LEAD TEACHER: Greg Campos ANESTHESIA TYPE: Local By Surgeon and General LMA/ETT Refer to Anesthesia Record ESTIMATED BLOOD LOSS: 5 PATHOLOGY: none sent TOURNIQUET TIME: 0 Patient was transported to: PACU Patient's condition: stable Indications: Please see complete medical record for details. Findings: Exam under anesthesia: Full range of motion, no instability Arthroscopic findings: Mild patellofemoral and medial chondromalacia. Small partial posterior horn medial meniscus root junction tearing otherwise largely healed and stable. Remainder of posterior horn meniscus intact except for very slight undersurface posterior horn body junction peripheral partial tearing. Intact ACL PCL. Moderately sized largely white zone posterior horn lateral meniscus tear. Mild synovitis. Procedure Description: In the operating room, general anesthesia was induced. The patient was positioned supine on the operating room table. All bony prominences were well-padded. Preoperative antibiotics were administered. The knee was prepped and draped in the usual sterile fashion. The correct patient, procedure, and side of the procedure were all verified prior to incision. Exam under anesthesia was performed. 10 cc of 0.25% bupivacaine containing epinephrine was infiltrated about the planned anteromedial and anterolateral knee arthroscopy portals. An additional 10 cc was infiltrated about the medial joint line and pretibial areas. The portals were established and a complete diagnostic arthroscopy was performed with relevant findings detailed above. The mechanical shaver was used to remove mild synovitis from the intercondylar and patellofemoral areas. Torpedo shaver was used to resect the small cartilage flap at the edge of the medial femoral condyle medial gutter. The posterior horn and root of the lateral meniscus was debrided of torn tissue and contoured nicely with the torpedo shaver. The posterior horn of the medial meniscus was difficult to access and a spinal 18-gauge needle used through a single skin incision to somewhat trephinate the MCL and obtain better access. The root was carefully inspected and remarkably largely intact. There was mild fraying superficially with the slight edge of the white zone tear partially radially at the junction with the body. The posterior horn and root were stable on vigorous probing. There is additional slight tear hiding underneath the body posterior horn junction. The arthroscope was directed into the posterior medial compartment there was no hidden additional pathology in the meniscal capsular margin was intact. The torpedo shaver was then used to lightly debride at the root and undersurface posterior horn areas. Overall, the medial compartment was quite healthy for his age and root injury. The knee was copiously irrigated with arthroscopic fluid until there was a clear effluent before being drained of all fluid. The anteromedial and anterolateral portals were closed in 3-0 Monocryl in a buried interrupted fashion. Mastisol, Steri-Strips, and 4 x 4 gauze were applied over the incisions. The knee was then wrapped gently with an JESSICA comressive bandage. The patient awoke from anesthesia without complication and was transferred to the recovery room in a stable condition. Date of Procedure: 05/17/24
[2024-05-17] MEDS: Lactated Ringers 1,000 ML 30 ML IV (09:09)
--- NOTE | 2024-05-17 09:22 | ANES.PREOP_ITS ---
General Info Date of Service Date Performed: 05/17/24 Height: 5 ft 5 in Weight: 78.2 kg Body Mass Index (BMI): 28.7 Surgical Procedure: Operation Date: 05/17/24 10:40 Proposed Procedure Side Surgeon p Knee Arthroscopy w Medial Meniscus Root Repair Right Felipe Corey MD Meds Allergies and Home Medications Allergies Allergy/AdvReac Type Severity Reaction Status Date / Time No Known Allergies Allergy Verified 05/17/24 08:42 Home Medication ?Medication ?Instructions ?Recorded aspirin 81 mg tablet,delayed 81 mg PO DAILY 07/04/12 release (Aspir-) fluticasone propionate 110 1 puff inhalation BID #12 grams 06/24/22 mcg/actuation HFA aerosol inhaler (Flovent HFA) albuterol sulfate 90 mcg/actuation 2 puff inhalation QID PRN 08/17/22 aerosol inhaler shortness of breath or wheezing #18 grams lancets 28 gauge #200 ea 09/30/22 blood sugar diagnostic (FreeStyle #200 ea 10/24/22 Test strips) blood-glucose meter (FreeStyle #1 ea 10/24/22 [place] kit) diphenhydramine 25 2 tab PO QHS PRN left shoulder 01/14/23 mg-acetaminophen 500 mg tablet pain #90 tabs (Tylenol PM Extra Strength) metformin 500 mg tablet 500 mg PO DAILY #90 tabs 08/04/23 simvastatin 40 mg tablet 40 mg PO HS #90 tabs 08/04/23 triamcinolone acetonide 0.1 % 1 applic topical DAILY PRN rash 08/15/23 topical cream #80 grams chlorthalidone 25 mg tablet 25 mg PO DAILY #90 tabs 08/18/23 potassium chloride 20 mEq 20 meq PO BID #180 tabs 08/18/23 tablet,extended release acetaminophen 650 mg/20.3 mL oral 650 mg PO Q6H PRN 01/09/24 solution ibuprofen 100 mg/5 mL oral 400 mg PO Q6H PRN 01/09/24 suspension ondansetron 4 mg disintegrating 4 mg PO Q8H PRN 01/09/24 tablet Current Visit Medications: Current Medications Generic Name Dose Route Start Last Admin Trade Name Freq PRN Reason Stop Dose Admin Ringer's Solution 1,000 mls @ 30 mls/hr 05/17/24 06:00 05/17/24 09:09 IV 05/17/24 23:59 30 mls/hr INFUSION KAREN Administration Cefazolin Sodium/Dextrose 2 gm in 50 mls @ 100 mls/hr 05/17/24 06:00 Ancef Duplex IVPB 05/17/24 23:59 PREOP KAREN Tranexamic Acid/Sodium Chloride 1,000 mg in 100 mls @ 600 mls/hr 05/17/24 06:00 IVPB 05/17/24 23:59 PREOP KAREN IV Miscellaneous Supplies 1 each 05/17/24 06:00 Iv Access IV 05/17/24 23:59 DIRECTED KAREN Oxycodone HCl 0 mg 05/17/24 07:08 Oxycodone 5 Mg Tab PO 06/16/24 07:07 Q3H PRN PRN Pain Sodium Chloride 0 ml 05/17/24 06:00 Normal Saline Flush 10 Ml Syr IV 05/17/24 23:59 PRN PRN Sodium Chloride 0 ml 05/17/24 06:00 Normal Saline 10 Ml Vial IJ 05/17/24 23:59 DIRECTED PRN Sterile Water 0 ml 05/17/24 06:00 Water,Injection,Sterile 10 Ml Vial IJ 05/17/24 23:59 DIRECTED PRN PFSH Active Problems Active Problems: Problem Status Onset Code Chondromalacia of patella, right Acute M22.41 Acute medial meniscus tear of right knee Acute S83.241A Achalasia of esophagus Chronic K22.0 Type 2 diabetes mellitus with diabetic neuropathy Chronic E11.40 Essential hypertension Chronic I10 Hyperlipidemia Chronic Gastroesophageal reflux disease with esophagitis Chronic K21.0 Dysphagia Chronic R13.10 Esophageal achalasia Chronic K22.0 Mild persistent asthma Chronic J45.30 Carpal tunnel syndrome of left wrist Chronic G56.02 Diplopia Chronic H53.2 Obesity Chronic E66.9 Sigmoid diverticulosis Chronic K57.30 Elevated TSH Acute R79.89 Surgical History Surgical History H/O esophagomyotomy (01/04/24) Laparoscopic Heller Myotomy, Esophagomyotomy w/ Toupet Fundoplication S/P left rotator cuff repair (10/29/22) Manipulation under anesthesia 03/2023 History of medial meniscus repair of left knee (04/02/21) Partial medial & lateral meniscectomy, chondroplasty History of carpal tunnel surgery of right wrist S/P left knee arthroscopy (09/02/09) With chondroplasty patella and open lateral retinacular release S/P trigger finger release (07/04/17) Of Right middle finger; also had right ring finger done in 2009 History of esophagogastroduodenoscopy (EGD) (12/29/16) And in 2015 S/P colonoscopy (09/01/12) S/P appendectomy Tobacco Smoking/Tobacco Use Status: Former Tobacco Use Smokeless tobacco user: other Passive smoking exposure: No Second hand exposure: No Alcohol Alcohol Intake: current Alcohol intake frequency: holidays/special occasions only Substance Use Substance use: Never Substance use type: does not use Vital Signs and Lab Results Vital Signs Most Recent Vital Signs in EMR: Most Recent Vital Signs Temp Pulse Resp BP Pulse Ox 36.6 C 55 L 18 129/76 96 05/17/24 08:52 05/17/24 08:52 05/17/24 08:52 05/17/24 08:52 05/17/24 08:52 Point of Care Results Point of Care Results: Finger Stick Blood Glucose 135 05/17/24 08:49 Lab Results Blood Type / Crossmatch: No Data to Display Complete Blood Count: No Data to Display Complete Metabolic Panel: No Data to Display Liver Function Panel: No Data to Display Coagulation Panel: No Data to Display Cardiac Panel: No Data to Display Arterial Blood Gas: No Data to Display Venous Blood Gas: No Data to Display Pancreas Panel: No Data to Display Thyroid Panel: No Data to Display Infectious Disease: No Data to Display Blood Cultures: No Data to Display Toxicology Panel: No Data to Display Imaging and Studies Imaging and Studies Study information below may be from another EMR and interpreted by another provider. Please see original notes in EMR for more complete details. EKG Summary: 08/18: sinus. Anesthesia Assessment and Plan Anesthesia History Personal History: No History of Anesthesia Complications Family History: No Family History of Anesthesia Complications Exercise Tolerance Exercise Tolerance: Metabolic Equivalents>4 Cardiac & Pulmonary Exam Cardiac Exam: Normal S1/S2 Heart Sounds Pulmonary Exam: Clear Bilateral Breath Sounds Implantable Cardiac Device Does patient have a Pacemaker or an ICD?: No Airway Exam Known Difficult Airway: No Mallampati Class: 2 Mouth Opening: Normal (> 3cm) Thyromental Distance: Less than 3 cm Neck Range of Motion: Full ROM Neck Circumference: Normal Teeth Condition: Generalized Poor Dentition ASA Classification ASA Score: ASA 2 Emergency Case?: No NPO Status NPO Status: NPO Clears >2 hours, Solids >8 hours Anesthesia Plan Resuscitation Status: Full Code Anesthesia Technique: General Anesthesia Airway Planned: Endotracheal Tube Monitors Used: Standard Monitors Preoperative Comments:: 62 yo male for knee scope. Sig PMHx: HTN (chlorthalidone), asthma (albut), GERD (previously on omep, sucralfate, famotidine, s/p Oleksandr), DM2 (metformin, glipizide). Former tobacco. Previous Anes: - shoulder, glide 3 grade 1, easy mask, ISB, no issue. midaz, 10 exp/10 0.5% bup for block.
[2024-05-17] MEDS: ceFAZolin 2 GM/50 ML BAG IVPB (10:22)
[2024-05-17] MEDS: TRANEXAMIC ACID/SOD. CHL. 1,000 MG/100 ML BAG 600 MG IVPB (10:32)
[2024-05-17] MEDS: EPINEPHrine 10 MG/10 ML ML (11:08)
[2024-05-17] MEDS: Bupivacaine 0.25% Pres-Free W/EPI 30 ML VIAL (11:10)
[2024-05-17] MEDS: fentaNYL 100 MCG/2 ML VIAL IVP ×2 (11:53→11:59)
--- NOTE | 2024-05-17 12:40 | ANES.NERVE_ITS ---
Nerve Block Single Injection Procedure Date and Time Date Performed: 05/17/24 Procedure Start: 12:28 Location Where Procedure Performed Procedure Location: PACU Reason Performed: Other (Rescue nerve block. ) Requesting Provider: Felipe Corey Timeout Performed Timeout Performed: Yes Monitoring Used ECG, Blood Pressure, SpO2 and ETCO2 Sterility Sterility: Hand Hygiene, Surgical Cap, Surgical Mask, Sterile Gloves and Chlorhexidine Sedation Given During Procedure Sedation Given (Indicate Dose Given): No Sedation given Patient Mental Status Patient Mental Status: Awake Nerve Block 1st Nerve Block: Laterality: Right Block Type: Adductor Canal Ultrasound Image Saved?: Yes Needle / Catheter Used: 100mm SonoPlex II Local Anesthetic Bolus (Indicate Dose Given): Lidocaine used for local i nfiltration of skin and Bupivacaine 0.25% Dose:: 10 mL Additives (Indicate Dose Given): None Ultrasound: Sterile probe cover and gel used Nerve Stimulator: Supplement to Ultrasound use and No twitch or parasthesia noted < 0.5 mA Paresthesia: None Procedure Tolerated: No Complications Procedure Outcome: Successful Procedure Comment: On waking from anes significant pain and discomfort. Fent started, but not covering it. Discussed the preop plan of rescue block. Pain is on the edge of what this would cover, but he agrees to move forward. Performed By: Garrett Garrison
--- NOTE | 2024-05-17 12:47 | W.ANESPOSTOP ---
Postoperative Evaluation Date, Time and Location Date Performed: 05/17/24 Time Performed: 12:47 Patient Location: PACU Vital Signs Most Recent Imported Vital Signs: Most Recent Vital Signs Temp Pulse Resp BP Pulse Ox 36.4 C L 60 15 146/87 H 99 05/17/24 12:40 05/17/24 12:36 05/17/24 12:36 05/17/24 12:36 05/17/24 12:36 Pain Score Most Recent Pain Score: Most Recent Pain Score Pain Level 5 05/17/24 12:40 Assessment Mental Status: Awake (Alert & Oriented to Patient Baseline) Airway and Respiratory Function: Patent airway with normal (patient baseline) respiratory exam Cardiovascular Function: Hemodynamically Stable Hydration Status: Adequately Hydrated Nausea & Vomiting: No Nausea or Vomiting Pain: Pain is tolerable per patient (much improved post block. ) Peripheral Nerve Block: Regional nerve block not resolved at time of post operative discharge
[2024-05-17] MEDS: oxyCODONE 5 MG TAB PO (13:39)
== END 2024-05-17 14:27 | disposition home or self-care (01) ==
LOC: SUR 08:31
PROVIDERS: PCP Nurse Practitioner Family; Visit Provider Student in an Organized Health Care Education/Training Program
PROC: (CPT 29880; principal; 2024-05-17 10:30)
DX: S83.241A Other tear of medial meniscus, current injury, right knee, initial encounter (principal); X58.XXXA Exposure to other specified factors, initial encounter; M22.41 Chondromalacia patellae, right knee; G89.18 Other acute postprocedural pain
CPT/HCPCS: 29880; 64447; J0131; J0665; J0690; J1100; J1171; J1885; J2270; J2405; J2704; J3010

== ENCOUNTER 2024-08-07 19:43 | Emergency (ER) | payer OTHER, BC, SELFPAY ==
[2024-08-07 19:49] VITALS: BP 168/96; PULSE 98; RESP 18; TEMP 36.4; O2SAT 93
--- NOTE | 2024-08-07 20:00 | DI.CT_ITS ---
Exam(s) CT HEAD FACIAL WO EXAM: CT HEAD FACIAL WO CLINICAL HISTORY: unable to look laterally, trauma, PERRLA. TECHNIQUE: Imaging Protocol: Axial computed tomography images with coronal and sagittal reformatted images were created and reviewed COMPARISON: No exams were available for comparison FINDINGS: CT Head: Ventricles and Extra axial spaces: Normal in size and morphology for the patient's age. Hemorrhage: None. Cerebral parenchyma: No evidence of an acute territorial infarct. Midline shift: None. Brainstem/Cerebellum: Normal. Calvarium: Normal. Visualized Paranasal sinuses/Mastoids: Clear. Soft Tissues: There is mild soft tissue swelling in the left periorbital region particularly laterall y. CT Face: Facial Bones: No definite fracture is noted in facial bones. Sinuses and Mastoids: Unremarkable. Globes, extraocular muscles, optic nerves and retrobulbar fat: Normal. Upper aerodigestive tract: Normal. Mandible and bilateral temporomandibular joints: Normal. Soft tissues: There is left periorbital soft tissue swelling particularly laterally. There is also m ild swelling overlying the cheek. No radiopaque foreign bodies are seen. IMPRESSION: 1. No acute intracranial process. 2. No acute facial fracture. 3. There is soft tissue swelling in the left periorbital region, particularly laterally. There is al so mild swelling overlying the left cheek. No radiopaque foreign body is identified. RADIATION DOSE DELIVERED: 1,248.28mGy.cm Total DLP DATA REPOSITORY: All CT scans at this facility are submitted to the National Radiology Data Registry (NRDR) Dose Index Registry (DIR) with the [employer] ([employer]). RADIATION OPTIMIZATION: All CT scans at this facility use at least one of these dose optimization te chniques: automated exposure control; mA and/or kV adjustment per patient size (includes targeted exa ms where dose is matched to clinical indication); or iterative reconstruction.
[2024-08-07] MEDS: Lidocaine/Epinephri/Tetracaine Topical Gel 3 ML TP (20:18)
--- NOTE | 2024-08-07 21:18 | DI.VRAD_ITS ---
PROCEDURE INFORMATION: Exam: CT Head Without Contrast Exam date and time: 08/07/2024 8:38 PM Age: 63 years old Clinical indication: Injury or trauma; Fall; Work related; Blunt trauma (contusions or hematomas); Orbit/periorbital; Left; Injury date: 08/07/24; Injury details: Unable to look laterally, trauma, perrla TECHNIQUE: Imaging protocol: Computed tomography of the head without contrast. Radiation optimization: All CT scans at this facility use at least one of these dose optimization techniques: automated exposure control; mA and/or kV adjustment per patient size (includes targeted exams where dose is matched to clinical indication); or iterative reconstruction. COMPARISON: CR XR CERVICAL SPINE COMP 4-5V 09/24/2020 10:10 AM FINDINGS: Brain: Mild volume loss No hemorrhage. Unremarkable white matter. No mass effect. Cerebral ventricles: No ventriculomegaly. Paranasal sinuses: Visualized sinuses are unremarkable. No fluid levels. Mastoid air cells: Visualized mastoid air cells are well aerated. Bones: Unremarkable. No acute fracture. Soft tissues: Left cheek/periorbital swelling. IMPRESSION: No acute intracranial hemorrhage. PROCEDURE INFORMATION: Exam: CT Maxillofacial Without Contrast Exam date and time: 08/07/2024 8:38 PM Age: 63 years old Clinical indication: Injury or trauma; Fall; Work related; Blunt trauma (contusions or hematomas); Orbit/periorbital; Left; Injury date: 08/07/24; Injury details: Unable to look laterally, trauma, perrla TECHNIQUE: Imaging protocol: Computed tomography of the face without contrast. Radiation optimization: All CT scans at this facility use at least one of these dose optimization techniques: automated exposure control; mA and/or kV adjustment per patient size (includes targeted exams where dose is matched to clinical indication); or iterative reconstruction. COMPARISON: CR XR CERVICAL SPINE COMP 4-5V 09/24/2020 10:10 AM FINDINGS: Paranasal sinuses: No air-fluid levels. Orbital cavities: Orbits are normal. Globes are unremarkable. Bones: No acute fracture. Soft tissues: Left periorbital swelling/laceration IMPRESSION: No acute fracture noted. Soft tissue injury on the left as noted Dictated and Authenticated by: Amanuel Breaux MD. Orderin Madi Laws MD
[2024-08-07] MEDS: Lidocaine 1% Pres-Free 5 ML VIAL (22:36)
[2024-08-07] MEDS: Erythromycin Ophth Oint 3.5 GM TUBE OD (23:11)
[2024-08-07 23:16] VITALS: BP 147/79; PULSE 63; RESP 18; O2SAT 93
--- NOTE | 2024-08-07 23:18 | W.ED.GENAD ---
Discharge Plan Disposition Patient Disposition: Home Condition: Stable Discharge Details Clinical Impression: Complex laceration of face Primary Care Provider: Zuleika Vergara ED Provider: Eusebia Barraza Home Meds and New Rx's Prescriptions: Continued albuterol sulfate 90 mcg/actuation HFA aerosol inhaler 2 puff IH QID PRN (Reason: shortness of breath or wheezing) Qty: 18 4RF chlorthalidone 25 mg tablet 25 mg PO DAILY Qty: 90 3RF Rx Instructions: Take 1 tablet once a day fluticasone propionate 110 mcg/actuation HFA aerosol inhaler 1 puff IH BID Qty: 12 4RF metformin 500 mg tablet 500 mg PO DAILY Qty: 90 3RF Rx Instructions: Take 1 tablet daily potassium chloride 20 mEq tablet extended release 20 meq PO BID Qty: 180 3RF simvastatin 40 mg tablet 40 mg PO HS Qty: 90 3RF Rx Instructions: Take 1 tablet at bedtime aspirin [Aspir-81] 81 MG tablet,delayed release (DR/EC) 81 mg PO DAILY diphenhydramine-acetaminophen [Tylenol PM Extra Strength] 25-500 mg tablet 2 tab PO QHS PRN (Reason: left shoulder pain) Qty: 90 0RF triamcinolone acetonide 0.1 % cream 1 applic topical DAILY PRN (Reason: rash) Qty: 80 0RF acetaminophen 650 mg/20.3 mL solution 650 mg PO Q6H PRN Patient Comments: [facility] [place] 01/05/24 243.6ml no refills (DME) Contour Next Test Strips Strip See Rx Instructions .Route Qty: 200 3RF Rx Instructions: Check blood sugar twice a day (DME) blood-glucose meter [Contour Next Meter] Misc See Rx Instructions .Route Qty: 1 2RF Rx Instructions: Check blood sugar twice a day (DME) lancets 33 gauge misc See Rx Instructions .ROUTE .MEDSUPPLY Qty: 200 3RF Rx Instructions: Check blood sugar twice a day Discharge Instructions Instructions: Laceration Repair With Stitches ED, Wound Care ED Additional Instructions: Keep wound clean and dry Apply erythromycin twice a day Sutures removed in 7 days Make sure you wear hat or sunscreen the summer as this will burn Return earlier with spreading redness, fever, worsening pain Stand Alone Forms: Work Release HPI General Date/Time Provider Initiated Documentation: 08/07/24 19:47. HPI Narrative: 63-year-old male with diabetes, hypertension, and hyperlipidemia presents after a fall. Reports lightheadedness when transitioning from seated to standing, persisting for several years. Fell into a cement wall an hour prior to arrival. No loss of consciousness, vision changes, chest pain, shortness of breath, neck pain, or alterations in strength or sensation. No nausea or vomiting. No history of coagulopathy. Takes baby aspirin. Related Data Home Medications ?Medication ?Instructions ?Recorded ?Confirmed aspirin 81 mg tablet,delayed 81 mg PO DAILY 07/04/12 08/07/24 release (Aspir-) diphenhydramine 25 2 tab PO QHS PRN left shoulder 01/14/23 08/07/24 mg-acetaminophen 500 mg tablet pain #90 tabs (Tylenol PM Extra Strength) triamcinolone acetonide 0.1 % 1 applic topical DAILY PRN rash 08/15/23 08/07/24 topical cream #80 grams acetaminophen 650 mg/20.3 mL oral 650 mg PO Q6H PRN 01/09/24 08/07/24 solution albuterol sulfate 90 mcg/actuation 2 puff inhalation QID PRN 06/28/24 08/07/24 aerosol inhaler shortness of breath or wheezing #18 grams chlorthalidone 25 mg tablet 25 mg PO DAILY #90 tabs 06/28/24 08/07/24 fluticasone propionate 110 1 puff inhalation BID #12 grams 06/28/24 08/07/24 mcg/actuation HFA aerosol inhaler metformin 500 mg tablet 500 mg PO DAILY #90 tabs 06/28/24 08/07/24 potassium chloride 20 mEq 20 meq PO BID #180 tabs 06/28/24 08/07/24 tablet,extended release simvastatin 40 mg tablet 40 mg PO HS #90 tabs 06/28/24 08/07/24 blood sugar diagnostic (Contour #200 ea 07/02/24 07/24/24 Next Test Strips) blood-glucose meter (Contour Next #1 ea 07/02/24 07/24/24 Meter) lancets 33 gauge #200 ea 07/02/24 07/24/24 Previous Rx's ?Medication ?Instructions ?Recorded diphenhydramine 25 2 tab PO QHS PRN left shoulder 01/14/23 mg-acetaminophen 500 mg tablet pain #90 tabs (Tylenol PM Extra Strength) triamcinolone acetonide 0.1 % 1 applic topical DAILY PRN rash 08/15/23 topical cream #80 grams albuterol sulfate 90 mcg/actuation 2 puff inhalation QID PRN 06/28/24 aerosol inhaler shortness of breath or wheezing #18 grams chlorthalidone 25 mg tablet 25 mg PO DAILY #90 tabs 06/28/24 fluticasone propionate 110 1 puff inhalation BID #12 grams 06/28/24 mcg/actuation HFA aerosol inhaler metformin 500 mg tablet 500 mg PO DAILY #90 tabs 06/28/24 potassium chloride 20 mEq 20 meq PO BID #180 tabs 06/28/24 tablet,extended release simvastatin 40 mg tablet 40 mg PO HS #90 tabs 06/28/24 blood sugar diagnostic (Contour #200 ea 07/02/24 Next Test Strips) blood-glucose meter (Contour Next #1 ea 07/02/24 Meter) lancets 33 gauge #200 ea 07/02/24 Allergies Allergy/AdvReac Type Severity Reaction Status Date / Time No Known Allergies Allergy Verified 08/07/24 20:02 General Stated Complaint: Fall/Non TraumaCriteria BABATUNDE: 3 Exam Narrative Exam Narrative: General Appearance: Alert and oriented. Vital signs: Vitals stable, mild hypertension. HEENT: 2-1/2 inch laceration on left face, including eyebrow and orbit. Pupils equal, round, reactive to light and accommodation. Extraocular muscles intact. No hemotympanum. Respiratory: Within normal limits. Cardiovascular: [delete this row] Gastrointestinal: [delete this row] Genitourinary: [delete this row] Lymphatic: [delete this row] Back, Musculoskeletal: No cervical spine or midline tenderness. Extremities: [delete this row] Skin: Warm and dry, no rash. Neurological: GCS 15. Ambulatory with steady gait. Psychiatric: [delete this row] Other observations: [delete this row] Course Vital Signs Vital signs: Vital Signs Temperature 36.4 C 08/07/24 19:49 Pulse 98 H 08/07/24 19:49 Respiratory Rate 18 08/07/24 19:49 Blood Pressure 168/96 H 08/07/24 19:49 Pulse Oximetry 93 08/07/24 19:49 Temperature 36.4 C 08/07/24 19:49 Pulse 63 08/07/24 23:16 Respiratory Rate 18 08/07/24 23:16 Blood Pressure 147/79 H 08/07/24 23:16 Pulse Oximetry 93 08/07/24 23:16 Pain Level 10 08/07/24 19:[address] head and facial bones: no acute abnormality, no fracture, no foreign body. Procedure: Two chromic sutures subcutaneously, 12 surface sutures: 10 Prolene, 2 chromic 5-0 adjacent to lateral canthus. 8 cm laceration Initial Assessment: 63-year-old male with history of diabetes, hypertension, hyperlipidemia, presents after a fall. Lightheadedness upon standing for several years, fell into a cement wall today. Large laceration to the left side of his face. Denies loss of consciousness, vision changes, chest pain, shortness of breath, neck pain, strength or sensation changes, nausea, vomiting, history of coagulopathy. Takes baby aspirin. Alert and oriented. Pupils equal, round, reactive to light and accommodation. Extraocular muscles intact. GCS 15. No cervical spine tenderness. No midline tenderness. Ambulatory with steady gait. No hemotympanum. ED Course: - Complex laceration to left orbit including eyebrow extending to 5 mm from lateral canthus. - Subcutaneous sutures placed: 2 chromic sutures subcutaneously, 12 sutures on the surface (10 Prolene, 2 chromic five oh superficially adjacent to lateral canthus). - Extraocular muscles intact. - Benign neurological exam. - Patient tolerated procedure without incident. - CT head and facial bones ordered: no acute abnormality, no fracture, no foreign body. Imaging read by me. - Patient alert and oriented at time of discharge home, in no acute distress. - Sutures to be removed in 7 days. - Work note for 7 days supplied. - Encouraged to take Tylenol as needed for discomfort and apply erythromycin ointment topically. - Vitals stable aside from mild hypertension. - Encouraged to recheck hypertension with primary care physician. - Return precautions reviewed, patient expressed understanding. Final Assessment: Patient presented with a complex laceration to the left orbit after a fall, with lightheadedness upon standing. Sutures placed successfully, no acute abnormalities found on CT imaging. Mild hypertension noted, advised follow-up with primary care physician. Clinical Impression: - Complex laceration to left orbit - Mild hypertension Disposition: - Discharge: Patient discharged home. - Follow-Up: Sutures to be removed in 7 days. Recheck hypertension with primary care physician. Patient Education: Encouraged to take Tylenol for discomfort and apply erythromycin ointment topically. Return precautions reviewed and understood. MDM Components Evaluation: - Number of Differential Diagnoses or Management Options: Complex laceration to left orbit, mild hypertension. - Amount and Complexity of Data Reviewed: CT head and facial bones imaging. - Risk of Complication and Morbidity or Mortality: Mild hypertension, risk of infection from laceration. Quality:SDOH Health Related Social Needs: No Data to Display PFSH All Active Problems (Updated 08/07/24 @ 23:00 by JESSY Scales) Complex laceration of face (Acute) Type 2 diabetes mellitus with diabetic neuropathy (Chronic) Essential hypertension (Chronic) Hyperlipidemia (Chronic) Mild persistent asthma (Chronic) Carpal tunnel syndrome of left wrist (Chronic) Diplopia (Chronic) Obesity (Chronic) Sigmoid diverticulosis (Chronic) Medical History (Updated 08/07/24 @ 23:00 by JESSY Scales) Gastroesophageal reflux disease with esophagitis Esophageal achalasia type II Surgical History (Updated 06/28/24 @ 10:00 by Zuleika Vergara NP) S/P medial meniscus repair of right knee (05/17/24) Partial medial & lateral meniscectomy H/O esophagomyotomy (01/04/24) Laparoscopic Heller Myotomy, Esophagomyotomy w/ Toupet Fundoplication S/P left rotator cuff repair (10/29/22) Manipulation under anesthesia 03/2023 History of medial meniscus repair of left knee (04/02/21) Partial medial & lateral meniscectomy, chondroplasty History of carpal tunnel surgery of right wrist S/P left knee arthroscopy (09/02/09) With chondroplasty patella and open lateral retinacular release S/P trigger finger release (07/04/17) Of Right middle finger; also had right ring finger done in 2009 History of esophagogastroduodenoscopy (EGD) (12/29/16) And in 2015 S/P colonoscopy (09/01/12) S/P appendectomy Family History Mother , 70s Breast cancer COPD (chronic obstructive pulmonary disease) Type 2 diabetes mellitus Heart disease Father , 70s Heart disease Myocardial infarction Lung cancer Hypertension Sister Hyperlipidemia Type 2 diabetes mellitus Sister No problems noted. Sister No problems noted. Sister No problems noted. Sister No problems noted. Brother Heart disease Myocardial infarction Type 2 diabetes mellitus Hyperlipidemia Daughter Hyperlipidemia Daughter Depression Maternal Grandfather No problems noted. Maternal Grandmother No problems noted. Paternal Grandfather No problems noted. Paternal Grandmother No problems noted. Social History (Updated 06/29/24 @ 14:23 by Kiana Kumar) Smoking/Tobacco Use Status: Former Tobacco Use tobacco type: cigarettes Quit Date: 05/01/87 Pack-years: 8 Tobacco: How many years used: 25 Smokeless tobacco user: other Quit status: quit date established Second Hand Exposure: No Smoking risk assessment performed?: Yes Alcohol Intake: current Alcohol Intake frequency: holidays/special occasions only Alcohol type: beer Drug use: Never Substance use type: does not use Adopted: No Caregiver/Support person: No Household members: spouse Housing: house Communication Needs: None Education Level: high school Do you need help understanding health information?: Never 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 Pets and animals: Yes Pets and animals: cat(s) Do you think of yourself as: straight/heterosexual Current gender identity: male What is your relationship status?: How often do you talk on the phone with friends or family?: never How often do you get together with friends or relatives?: never How often do you attend holiness or jehovah's witness services?: 4 or more times per year Do you belong to any clubs or organized social groups?: no Panel score (0-1 are the most socially isolated patients): 2 What type of physical activity do you participate in: none Duration: decline to answer Frequency: decline to answer Yen/Evangelical: Cheondoism Special yen needs: No Seatbelt use: always Helmet use: No Drive intox 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
== END 2024-08-07 23:17 | disposition home or self-care (01) ==
PROVIDERS: Emergency Provider Physician Assistant; PCP Nurse Practitioner Family
DX: E11.40 Type 2 diabetes mellitus with diabetic neuropathy, unspecified; I10 Essential (primary) hypertension; E78.5 Hyperlipidemia, unspecified; Z87.891 Personal history of nicotine dependence; W01.198A Fall on same level from slipping, tripping and stumbling with subsequent striking against other object, initial encounter; Y93.89 Activity, other specified; Y92.69 Other specified industrial and construction area as the place of occurrence of the external cause; Y99.0 Civilian activity done for income or pay; S01.112A Laceration without foreign body of left eyelid and periocular area, initial encounter
CPT/HCPCS: 12051; 99284; 70450; 70486; J2003

== ENCOUNTER 2024-08-14 10:01 | Emergency (ER) | payer OTHER, BC, SELFPAY ==
[2024-08-14 10:05] VITALS: BP 145/88; PULSE 68; RESP 20; TEMP 36.4; O2SAT 94
--- NOTE | 2024-08-14 10:10 | ED.GENADUL_ITS ---
Discharge Plan Disposition Patient Disposition: Home Discharge Details Clinical Impression: Encounter for removal of sutures Primary Care Provider: Zuleika Vergara ED Provider: Kareem Waddell Home Meds and New Rx's Prescriptions: Continued albuterol sulfate 90 mcg/actuation HFA aerosol inhaler 2 puff IH QID PRN (Reason: shortness of breath or wheezing) Qty: 18 4RF chlorthalidone 25 mg tablet 25 mg PO DAILY Qty: 90 3RF Rx Instructions: Take 1 tablet once a day fluticasone propionate 110 mcg/actuation HFA aerosol inhaler 1 puff IH BID Qty: 12 4RF metformin 500 mg tablet 500 mg PO DAILY Qty: 90 3RF Rx Instructions: Take 1 tablet daily potassium chloride 20 mEq tablet extended release 20 meq PO BID Qty: 180 3RF simvastatin 40 mg tablet 40 mg PO HS Qty: 90 3RF Rx Instructions: Take 1 tablet at bedtime aspirin [Aspir-81] 81 MG tablet,delayed release (DR/EC) 81 mg PO DAILY diphenhydramine-acetaminophen [Tylenol PM Extra Strength] 25-500 mg tablet 2 tab PO QHS PRN (Reason: left shoulder pain) Qty: 90 0RF triamcinolone acetonide 0.1 % cream 1 applic topical DAILY PRN (Reason: rash) Qty: 80 0RF acetaminophen 650 mg/20.3 mL solution 650 mg PO Q6H PRN [place] [facility] [place] 243.6ml no refills (DME) Contour Next Test Strips Strip See Rx Instructions .Route Qty: 200 3RF Rx Instructions: Check blood sugar twice a day (DME) blood-glucose meter [Contour Next Meter] Misc See Rx Instructions .Route Qty: 1 2RF Rx Instructions: Check blood sugar twice a day (DME) lancets 33 gauge misc See Rx Instructions .ROUTE .MEDSUPPLY Qty: 200 3RF Rx Instructions: Check blood sugar twice a day Discharge Instructions Additional Instructions: You are seen in the emergency department to have your stitches removed. As discussed, if you develop fevers streaking signs of infection or have any other concerns please return emergency department. Otherwise please follow-up with your primary care provider as needed. For your pain please take medications as follows: 1. Take acetaminophen (Tylenol), 1,000 mg (two 500 mg tabs) every 6 hours [2. Take ibuprofen (Advil), 400 mg every 6 hours.] HPI General Date/Time Provider Initiated Documentation: 08/14/24 10:10 . HPI Narrative: MDM This is an overall very well-appearing afebrile and nontachycardic 63-year-old male with left-sided sutures for which he received removal by nursing. No pain out of proportion to suggest necrotizing soft tissue infection. No purulent drainage or fever to suggest infection so we will continue to observe off antibiotics. No proptosis to suggest retrobulbar hematoma no recurrent trauma. 10:30 AM Patient's nurse Art and charge nurse Brenda pathak reported that they had difficulty with suture removal. Wearing eye loops and using sterile surgical tools, I was able to remove the patient's sutures without incident. Patient and I discussed that he should return to the emergency department if he developed streaking signs of infection or any fevers. He understand his return indications and is discharged with empiric trial of expectant outpatient management. HPI This is a 63-year-old male arriving emergency department requesting sutures be removed. Sutures were placed a week ago adjacent to his left eye following fall he sustained. 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 He said no streaking signs of infection. No fevers nor chills. He had no foul-smelling drainage. Exam General: Well-appearing in no acute distress speaking in complete sentences. Head: Normocephalic, atraumatic. Eye: Extraocular eye movements intact. No conjunctival injection. No scleral icterus. No proptosis bilaterally. Ear, nose, mouth, throat: On the left side of the patient's face just adjacent to his left eye there is a well-healing laceration. I removed 7 sutures without incident. Normal voice, handling secretions normally. Neck: Trachea midline. Cardiovascular: Well-perfused distal extremities. Respiratory: Nonlabored respiration. Gastrointestinal: Nondistended abdomen. Musculoskeletal: No edema. Moving all 4 extremities spontaneously. Skin: Normal for age and race, grossly normal temperature and turgor. No acute rash. Neurologic: Alert and appropriate, no apparent acute deficits. Psychiatric: Mood and manner are appropriate. Grooming and personal hygiene are appropriate. Related Data Home Medications ?Medication ?Instructions ?Recorded ?Confirmed aspirin 81 mg tablet,delayed 81 mg PO DAILY 07/04/12 08/07/24 release (Aspir-) diphenhydramine 25 2 tab PO QHS PRN left shoulder 01/14/23 08/07/24 mg-acetaminophen 500 mg tablet pain #90 tabs (Tylenol PM Extra Strength) triamcinolone acetonide 0.1 % 1 applic topical DAILY PRN rash 08/15/23 08/07/24 topical cream #80 grams acetaminophen 650 mg/20.3 mL oral 650 mg PO Q6H PRN 01/09/24 08/07/24 solution albuterol sulfate 90 mcg/actuation 2 puff inhalation QID PRN 06/28/24 08/07/24 aerosol inhaler shortness of breath or wheezing #18 grams chlorthalidone 25 mg tablet 25 mg PO DAILY #90 tabs 06/28/24 08/07/24 fluticasone propionate 110 1 puff inhalation BID #12 grams 06/28/24 08/07/24 mcg/actuation HFA aerosol inhaler metformin 500 mg tablet 500 mg PO DAILY #90 tabs 06/28/24 08/07/24 potassium chloride 20 mEq 20 meq PO BID #180 tabs 06/28/24 08/07/24 tablet,extended release simvastatin 40 mg tablet 40 mg PO HS #90 tabs 06/28/24 08/07/24 blood sugar diagnostic (Contour #200 ea 07/02/24 07/24/24 Next Test Strips) blood-glucose meter (Contour Next #1 ea 07/02/24 07/24/24 Meter) lancets 33 gauge #200 ea 07/02/24 07/24/24 Previous Rx's ?Medication ?Instructions ?Recorded diphenhydramine 25 2 tab PO QHS PRN left shoulder 01/14/23 mg-acetaminophen 500 mg tablet pain #90 tabs (Tylenol PM Extra Strength) triamcinolone acetonide 0.1 % 1 applic topical DAILY PRN rash 08/15/23 topical cream #80 grams albuterol sulfate 90 mcg/actuation 2 puff inhalation QID PRN 06/28/24 aerosol inhaler shortness of breath or wheezing #18 grams chlorthalidone 25 mg tablet 25 mg PO DAILY #90 tabs 06/28/24 fluticasone propionate 110 1 puff inhalation BID #12 grams 06/28/24 mcg/actuation HFA aerosol inhaler metformin 500 mg tablet 500 mg PO DAILY #90 tabs 06/28/24 potassium chloride 20 mEq 20 meq PO BID #180 tabs 06/28/24 tablet,extended release simvastatin 40 mg tablet 40 mg PO HS #90 tabs 06/28/24 blood sugar diagnostic (Contour #200 ea 07/02/24 Next Test Strips) blood-glucose meter (Contour Next #1 ea 07/02/24 Meter) lancets 33 gauge #200 ea 07/02/24 Allergies Allergy/AdvReac Type Severity Reaction Status Date / Time No Known Allergies Allergy Verified 08/07/24 20:02 General Stated Complaint: Recheck BABATUNDE: 5 Course Vital Signs Vital signs: Vital Signs Temperature 36.4 C L 08/14/24 10:05 Pulse 68 08/14/24 10:05 Respiratory Rate 20 08/14/24 10:05 Blood Pressure 145/88 H 08/14/24 10:05 Pulse Oximetry 94 08/14/24 10:05 Temperature 36.4 C L 08/14/24 10:05 Pulse 68 08/14/24 10:05 Respiratory Rate 20 08/14/24 10:05 Blood Pressure 145/88 H 08/14/24 10:05 Blood Pressure Position Sitting 08/14/24 10:05 Pulse Oximetry 94 08/14/24 10:05 Oxygen Delivery Method Room Air 08/14/24 10:05 Oxygen Flow Rate 0 08/14/24 10:05 Medical Decision Making Quality:SDOH Health Related Social Needs: No Data to Display PFSH All Active Problems (Updated 08/14/24 @ 10:11 by Kareem Waddell MD) Encounter for removal of sutures (Acute) Complex laceration of face (Acute) Type 2 diabetes mellitus with diabetic neuropathy (Chronic) Essential hypertension (Chronic) Hyperlipidemia (Chronic) Mild persistent asthma (Chronic) Carpal tunnel syndrome of left wrist (Chronic) Diplopia (Chronic) Obesity (Chronic) Sigmoid diverticulosis (Chronic) Medical History (Updated 08/14/24 @ 10:11 by Kareem Waddell MD) Gastroesophageal reflux disease with esophagitis Esophageal achalasia type II Surgical History (Updated 06/28/24 @ 10:00 by Zuleika Vergara NP) S/P medial meniscus repair of right knee (05/17/24) Partial medial & lateral meniscectomy H/O esophagomyotomy (01/04/24) Laparoscopic Heller Myotomy, Esophagomyotomy w/ Toupet Fundoplication S/P left rotator cuff repair (10/29/22) Manipulation under anesthesia 03/2023 History of medial meniscus repair of left knee (04/02/21) Partial medial & lateral meniscectomy, chondroplasty History of carpal tunnel surgery of right wrist S/P left knee arthroscopy (09/02/09) With chondroplasty patella and open lateral retinacular release S/P trigger finger release (07/04/17) Of Right middle finger; also had right ring finger done in 2009 History of esophagogastroduodenoscopy (EGD) (12/29/16) And in 2015 S/P colonoscopy (09/01/12) S/P appendectomy Family History Mother , 70s Breast cancer COPD (chronic obstructive pulmonary disease) Type 2 diabetes mellitus Heart disease Father , 70s Heart disease Myocardial infarction Lung cancer Hypertension Sister Hyperlipidemia Type 2 diabetes mellitus Sister No problems noted. Sister No problems noted. Sister No problems noted. Sister No problems noted. Brother Heart disease Myocardial infarction Type 2 diabetes mellitus Hyperlipidemia Daughter Hyperlipidemia Daughter Depression Maternal Grandfather No problems noted. Maternal Grandmother No problems noted. Paternal Grandfather No problems noted. Paternal Grandmother No problems noted. Social History (Updated 06/29/24 @ 14:23 by Kiana Kumar) Smoking/Tobacco Use Status: Former Tobacco Use tobacco type: cigarettes Quit Date: 05/01/87 Pack-years: 8 Tobacco: How many years used: 25 Smokeless tobacco user: other Quit status: quit date established Second Hand Exposure: No Smoking risk assessment performed?: Yes Alcohol Intake: current Alcohol Intake frequency: holidays/special occasions only Alcohol type: beer Drug use: Never Substance use type: does not use Adopted: No Caregiver/Support person: No Household members: spouse Housing: house Communication Needs: None Education Level: high school Do you need help understanding health information?: Never current occupation: [employer] Pets and animals: Yes Pets and animals: cat(s) Do you think of yourself as: straight/heterosexual Current gender identity: male What is your relationship status?: How often do you talk on the phone with friends or family?: never How often do you get together with friends or relatives?: never How often do you attend islam or buddhist services?: 4 or more times per year Do you belong to any clubs or organized social groups?: no Panel score (0-1 are the most socially isolated patients): 2 What type of physical activity do you participate in: none Duration: decline to answer Frequency: decline to answer Yen/Protestant: Religious Special yen needs: No Seatbelt use: always Helmet use: No Drive intox 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
[2024-08-14 10:51] VITALS: BP 145/88; PULSE 68; RESP 20; TEMP 36.4; O2SAT 94
== END 2024-08-14 10:51 | disposition home or self-care (01) ==
PROVIDERS: Emergency Provider Emergency Medicine; PCP Nurse Practitioner Family
DX: S01.81XD Laceration without foreign body of other part of head, subsequent encounter (principal); X58.XXXD Exposure to other specified factors, subsequent encounter
CPT/HCPCS: 99282

== ENCOUNTER → 2024-10-25 08:14 | Outpatient (BNVA) | payer MEDICARE, SELFPAY | PROVIDERS: PCP Nurse Practitioner Family; Referring Provider Nurse Practitioner Family; Visit Provider Physical Therapy Assistant | DX: Z12.11 Encounter for screening for malignant neoplasm of colon (principal) | CPT/HCPCS: S0285 ==

== ENCOUNTER 2024-11-23 09:08 | Day surgery (SDC) | payer MEDICARE, OTHER, SELFPAY ==
--- NOTE | 2024-11-22 16:04 | PDOC.DSDIS_ITS ---
Date of service: 11/23/24 Discharge Plan Disposition Patient Disposition: Home Condition: Good Discharge Details Reason For Visit: Screening colonoscopy Attending Provider: Danilo Amezquita Primary Care Provider: Zuleika Vergara Home Meds and New Rx's Prescriptions: Continued albuterol sulfate 90 mcg/actuation HFA aerosol inhaler 2 puff IH QID PRN (Reason: shortness of breath or wheezing) Qty: 18 4RF fluticasone propionate 110 mcg/actuation HFA aerosol inhaler 1 puff IH BID Qty: 12 4RF metformin 500 mg tablet 500 mg PO DAILY Qty: 90 3RF Rx Instructions: Take 1 tablet daily simvastatin 40 mg tablet 40 mg PO HS Qty: 90 3RF Rx Instructions: Take 1 tablet at bedtime aspirin [Aspir-81] 81 MG tablet,delayed release (DR/EC) 81 mg PO DAILY triamcinolone acetonide 0.1 % cream 1 applic topical DAILY PRN (Reason: rash) Qty: 80 0RF acetaminophen 650 mg/20.3 mL solution 650 mg PO Q6H PRN Patient Comments: [facility] [place] 01/05/24 243.6ml no refills (DME) Contour Next Test Strips Strip See Rx Instructions .Route Qty: 200 3RF Rx Instructions: Check blood sugar twice a day (DME) blood-glucose meter [Contour Next Meter] Misc See Rx Instructions .Route Qty: 1 2RF Rx Instructions: Check blood sugar twice a day (DME) lancets [CareTouch Safety Lancets] 28 gauge misc See Rx Instructions .Route Qty: 200 3RF Rx Instructions: Check blood sugars BID potassium chloride 20 mEq tablet extended release 20 meq PO BID Qty: 180 3RF chlorthalidone 25 mg tablet 25 mg PO DAILY Qty: 90 3RF Rx Instructions: Take 1 tablet once a day bisacodyl [Dulcolax (bisacodyl)] 5 mg tablet,delayed release (DR/EC) 5 mg PO ONCE Qty: 4 0RF Rx Instructions: Take per colonoscopy instructions provided by ordering providers office polyethylene glycol 3350 17 gram/dose powder 17 g PO ONCE Qty: 238 0RF Rx Instructions: Take per colonoscopy instructions provided by ordering providers office Discharge Instructions Instructions: Diverticulosis Additional Instructions: Claudio, it was a pleasure meeting you today, and hope you are comfortable through the procedure in the upper great afternoon. Everything went very smoothly. I saw no signs of tumors or polyps. Incidentally, you have diverticulosis that involves all parts of your colon. I will attach the basic information here about typical approaches to diverticular management. But based on your history, it sounds like you have done well through the years. with a negative colonoscopy today you are good for 10 years. If you need anything or have any questions, please do not hesitate to call or ask at any time. 1. If tolerated, consume a soft, low fiber diet for 1-2 days. 2. Do not drive, drink alcohol, operate machinery, make critical decisions, or do activities that require coordination or balance for 24 hours. 3. Because air was put into your colon during the procedure, expelling air from your rectum (passing gas or farting) is normal. 4. You may not have a bowel movement for 1-3 days because of the colonoscopy prep. This is normal. 5. Go directly to the emergency room if you notice any of the following: Develop chills (warm to touch), or if you have a thermometer and your temperature is above 101 Difficulty breathing or difficultly swallowing Persistent vomiting Severe abdominal pain, other than gas cramps Severe chest pain Black, tarry stools Any bleeding ? exceeding one tablespoon 6. Call your physician if the site where your intravenous was started becomes red, swollen, painful, and warm to touch. 7. Your physician has reviewed your pre-procedure medications. Please continue to take those medications as previously ordered. You will be given specific information/education regarding any changes to your medications before leaving. Activity:: Activity as Tolerated Diet:: As Tolerated Discharge Orders Discharge Orders: Discharge Order (Routine); Ordered 11/22/24 Ordered By: Danilo Amezquita DS: Diagnosis Discharge Diagnosis (1) Encounter for screening colonoscopy: Status: Acute Asessment and Plan: Negative screening colonoscopy
--- NOTE | 2024-11-22 16:07 | COLE_ITS ---
Date of service: 11/23/24 Time of Service: 11:00 Colonoscopy Report Date of procedure: 11/23/24 Pre-op diagnosis general: Screening colonoscopy Post-op diagnosis procedure note: other (Negative screening colonoscopy) Procedure: Colonoscopy Surgeon: Danilo Amezquita Anesthesia Type: General:No Airway Estimated blood loss (mL): 0 Pathology: none sent Complications: None Disposition: same day Indications: Claudio is a 64-year-old male with a history of diverticulosis who needs his next screening colonoscopy. Prep: Miralax/Dulcolax Procedure Start Time: 10:34 Procedure End Time: 10:52 Retraction Time: 11 Findings: Pandiverticulosis Procedure Description: After the induction of anesthesia, and with the patient in left lateral decubitus position, I began by performing an external anorectal exam.? Perineum and skin were normal, as was the anal verge.? There was no evidence of external hemorrhoids.? Next, I performed a digital rectal exam.? I did not appreciate any abnormal findings.? Next, I advanced a colonoscope into the rectal vault.? I performed retroflexion.? This appeared normal.? Using insufflation, I then advanced the colonoscope beyond the rectal folds and into the sigmoid colon before advancing towards the cecum.? There is diverticulosis that involves all segments of the colon..? The scope was noted to be in the cecum by identification of the ileocecal valve and appendiceal orifice.? I then began withdrawing the colonoscope using repeated irrigation as necessary for full evaluation of the colonic mucosa. ?Once the scope was withdrawn to the level of the rectum, great care was taken to examine portions of the rectal folds.? Finally, the scope was withdrawn and the patient was brought to the same-day surgery recovery unit as the anesthetic wore off. ?The findings and instructions were shared with the patient prior to discharge. [place] Bowel Prep [place] Bowel Prep Right Colon: 3 Transverse Colon: 3 Total Score: 6
[2024-11-23 09:19] VITALS: BP 147/93; PULSE 76; RESP 16; TEMP 36.9; O2SAT 96
[2024-11-23] MEDS: Lactated Ringers 1,000 ML 80 ML IV (09:40)
--- NOTE | 2024-11-23 10:18 | W.ANESPRE ---
General Info Date of Service Date Performed: 11/23/24 Height: 5 ft 5 in Weight: 82.4 kg Body Mass Index (BMI): 30.2 Surgical Procedure: Operation Date: 11/23/24 10:35 Proposed Procedure Side Surgeon p Colonoscopy Danilo Amezquita MD Actual Procedure Side Surgeon p Colonoscopy Not Applicable Danilo Amezquita MD Pre-Op Diagnosis Post-Op Diagnosis Screening colonoscopy Meds Allergies and Home Medications Allergies Allergy/AdvReac Type Severity Reaction Status Date / Time No Known Allergies Allergy Verified 11/23/24 09:30 Home Medication ?Medication ?Instructions ?Recorded aspirin 81 mg tablet,delayed 81 mg PO DAILY 07/04/12 release (Aspir-) triamcinolone acetonide 0.1 % 1 applic topical DAILY PRN rash 08/15/23 topical cream #80 grams acetaminophen 650 mg/20.3 mL oral 650 mg PO Q6H PRN 01/09/24 solution albuterol sulfate 90 mcg/actuation 2 puff inhalation QID PRN 06/28/24 aerosol inhaler shortness of breath or wheezing #18 grams fluticasone propionate 110 1 puff inhalation BID #12 grams 06/28/24 mcg/actuation HFA aerosol inhaler metformin 500 mg tablet 500 mg PO DAILY #90 tabs 06/28/24 simvastatin 40 mg tablet 40 mg PO HS #90 tabs 06/28/24 blood sugar diagnostic (Contour #200 ea 07/02/24 Next Test Strips) blood-glucose meter (Contour Next #1 ea 07/02/24 Meter) lancets 28 gauge (CareTouch Safety #200 ea 08/27/24 Lancets) potassium chloride 20 mEq 20 meq PO BID #180 tabs 08/29/24 tablet,extended release chlorthalidone 25 mg tablet 25 mg PO DAILY #90 tabs 10/22/24 bisacodyl 5 mg tablet,delayed 5 mg PO ONCE #4 tabs 11/15/24 release (Dulcolax (bisacodyl)) polyethylene glycol 3350 17 17 g PO ONCE #238 grams 11/15/24 gram/dose oral powder Current Visit Medications: Current Medications Generic Name Dose Route Start Last Admin Trade Name Freq PRN Reason Stop Dose Admin Ringer's Solution 1,000 mls @ 80 mls/hr 11/23/24 06:00 11/23/24 09:40 IV 11/23/24 23:59 80 mls/hr INFUSION KAREN Administration IV Miscellaneous Supplies 1 each 11/23/24 06:00 Iv Access IV 11/23/24 23:59 DIRECTED KAREN Ondansetron HCl 4 mg 11/22/24 16:08 Ondansetron 4 Mg/2 Ml Vial IVP 12/22/24 16:07 Q4H PRN PRN Nausea / Vomiting Sodium Chloride 0 ml 11/23/24 06:00 Normal Saline Flush 10 Ml Syr IV 11/23/24 23:59 PRN PRN Sodium Chloride 0 ml 11/23/24 06:00 Normal Saline 10 Ml Vial IJ 11/23/24 23:59 DIRECTED PRN Sterile Water 0 ml 11/23/24 06:00 Water,Injection,Sterile 10 Ml Vial IJ 11/23/24 23:59 DIRECTED PRN PFSH Active Problems Active Problems: Problem Status Onset Code Encounter for screening colonoscopy Acute Z12.11 Type 2 diabetes mellitus with diabetic neuropathy Chronic E11.40 Essential hypertension Chronic I10 Hyperlipidemia Chronic Mild persistent asthma Chronic J45.30 Carpal tunnel syndrome of left wrist Chronic G56.02 Diplopia Chronic H53.2 Obesity Chronic E66.9 Sigmoid diverticulosis Chronic K57.30 Medical History Medical History Gastroesophageal reflux disease with esophagitis Esophageal achalasia type II Surgical History Surgical History S/P medial meniscus repair of right knee (05/17/24) Partial medial & lateral meniscectomy H/O esophagomyotomy (01/04/24) Laparoscopic Heller Myotomy, Esophagomyotomy w/ [place] Fundoplication S/P left rotator cuff repair (10/29/22) Manipulation under anesthesia 03/2023 History of medial meniscus repair of left knee (04/02/21) Partial medial & lateral meniscectomy, chondroplasty History of carpal tunnel surgery of right wrist S/P left knee arthroscopy (09/02/09) With chondroplasty patella and open lateral retinacular release S/P trigger finger release (07/04/17) Of Right middle finger; also had right ring finger done in 2009 History of esophagogastroduodenoscopy (EGD) (12/29/16) And in 2016 S/P colonoscopy (09/01/12) S/P appendectomy Tobacco Smoking/Tobacco Use Status: Former Tobacco Use Smokeless tobacco user: other Passive smoking exposure: No Second hand exposure: No Alcohol Alcohol Intake: current Alcohol intake frequency: holidays/special occasions only Alcohol type: beer Substance Use Substance use: Never Substance use type: does not use Vital Signs and Lab Results Vital Signs Most Recent Vital Signs in EMR: Most Recent Vital Signs Temp Pulse Resp BP Pulse Ox 36.9 C 76 16 147/93 H 96 11/23/24 09:19 11/23/24 09:19 11/23/24 09:19 11/23/24 09:19 11/23/24 09:19 Point of Care Results Point of Care Results: Finger Stick Blood Glucose 137 11/23/24 09:27 Imaging and Studies Imaging and Studies Study information below may be from another EMR and interpreted by another provider. Please see original notes in EMR for more complete details. EKG Summary: 08/18: sinus. Anesthesia Assessment and Plan Anesthesia History Personal History: No History of Anesthesia Complications Family History: No Family History of Anesthesia Complications Exercise Tolerance Exercise Tolerance: Metabolic Equivalents>4 Cardiac & Pulmonary Exam Cardiac Exam: Normal S1/S2 Heart Sounds Pulmonary Exam: Clear Bilateral Breath Sounds Implantable Cardiac Device Does patient have a Pacemaker or an ICD?: No Airway Exam Known Difficult Airway: No Mallampati Class: 2 Mouth Opening: Normal (> 3cm) Thyromental Distance: Less than 3 cm Neck Range of Motion: Limited ROM Neck Circumference: Normal Teeth Condition: Generalized Poor Dentition ASA Classification ASA Score: ASA 2 Emergency Case?: No NPO Status NPO Status: NPO Clears >2 hours, Solids >8 hours Anesthesia Plan Resuscitation Status: Full Code Anesthesia Technique: General Anesthesia Airway Planned: Endotracheal Tube Monitors Used: Standard Monitors Preoperative Comments:: 62 yo male for Colonoscopy Sig PMHx: HTN (chlorthalidone), asthma (albut), GERD (previously on omep, sucralfate, famotidine, s/p Oleksandr), DM2 (metformin, glipizide). Former tobacco. Previous Anes: - shoulder, glide 3 grade 1, easy mask, ISB, no issue. midaz, 10 exp/10 0.5% bup for block. - shoulder, MAC3, grade 1, easy mask, 6.5ETT
[2024-11-23 10:21] VITALS: BMI 30.2
[2024-11-23 10:57] VITALS: BP 103/75; PULSE 67; RESP 14; TEMP 36; O2SAT 95
[2024-11-23 11:31] VITALS: BP 131/88; PULSE 61; RESP 14; TEMP 36.1; O2SAT 100
--- NOTE | 2024-11-23 11:57 | W.ANESPOSTOP ---
Postoperative Evaluation Date, Time and Location Date Performed: 11/23/24 Time Performed: 11:57 Patient Location: Day Surgery Unit Vital Signs Most Recent Imported Vital Signs: Most Recent Vital Signs Temp Pulse Resp BP Pulse Ox 36.1 C L 61 14 131/88 100 11/23/24 11:31 11/23/24 11:31 11/23/24 11:31 11/23/24 11:31 11/23/24 11:31 Pain Score Most Recent Pain Score: Most Recent Pain Score Pain Level 0 11/23/24 11:31 Assessment Mental Status: Arousable with meaningful communication Airway and Respiratory Function: Patent airway with normal (patient baseline) respiratory exam Cardiovascular Function: Hemodynamically Stable Hydration Status: Adequately Hydrated Nausea & Vomiting: No Nausea or Vomiting Pain: Pt. Denies Any Pain Peripheral Nerve Block: Patient did not receive a nerve block
== END 2024-11-23 12:00 | disposition home or self-care (01) ==
LOC: SUR 09:09
PROVIDERS: PCP Nurse Practitioner Family; Visit Provider Surgery
PROC: 0DJD8ZZ Inspection of Lower Intestinal Tract, Via Natural or Artificial Opening Endoscopic (ICD-10-PCS; CPT 45378; principal; 2024-11-23 10:30)
DX: Z12.11 Encounter for screening for malignant neoplasm of colon (principal); I10 Essential (primary) hypertension; K21.9 Gastro-esophageal reflux disease without esophagitis; E11.9 Type 2 diabetes mellitus without complications; Z79.84 Long term (current) use of oral hypoglycemic drugs
CPT/HCPCS: G0121; J2704